=== PATIENT | male | born 1960 | race Caucasian/White ===

== ENCOUNTER 2016-09-07 15:09 | Emergency (ER) | payer MEDICARE, MEDICAID ==
[~2016-09-07] VITALS: Ht 162.6 cm; Wt 71.0 kg
[~2016-09-07 15:09] MED LIST: DIVA500T69 PO; DSS100 PO; GLIP10 PO; LISI-662 PO; METF500T4 PO; NIFE60 PO; SIMV10 PO; TIMO.25OS OU
[2016-09-07 17:59] LABS: BASOPHILS % (AUTO) 0.1 % (0.0-2.0); EOSINOPHILS % (AUTO) 1.7 % (1.0-6.0); HEMATOCRIT 43.1 % (41-53); HEMOGLOBIN 14.2 g/dL (13.5-17.5); LYMPHOCYTES # (AUTO) 1.5 K/uL (1.0-4.8); MEAN CORPUSCULAR HEMOGLOBIN 30.7 pg (26.0-34.0); MEAN CORPUSCULAR HGB CONC 32.9 G/dL (31.0-37.0); MEAN CORPUSCULAR VOLUME 93 fL (80-100); MONOCYTES # (AUTO) 0.5 K/uL (0.1-1.0); MONOCYTES % (AUTO) 6.1 % (2.0-9.0); NEUTROPHILS # (AUTO) 5.3 K/uL (1.8-7.7); NEUTROPHILS % (AUTO) 72.1 % (40.0-70.0); PLATELET COUNT (AUTO) 232 K/uL (150-450); RED BLOOD CELL COUNT(AUTO) 4.63 MIL/uL (4.50-5.90); RED CELL DISTRIBUTION WIDTH 15.7 % (11.5-14.5); WHITE BLOOD COUNT (AUTO) 7.4 K/uL (4.5-11.0)
[2016-09-07 18:15] LABS: ANION GAP 9 mmol/L (8-16); CALCIUM, TOTAL 9.2 mg/dL (8.8-10.5); CARBON DIOXIDE 30 mmol/L (22-29); CHLORIDE 106 mmol/L (98-107); CREATININE 1.19 mg/dL (0.60-1.30); GLOMERULAR FILTR. RATE CALC > 60 mL/min (>60); POTASSIUM 3.2 mmol/L (3.5-5.1); SODIUM SERUM 145 mmol/L (136-145); UREA NITROGEN, BLOOD 18 mg/dL (7-18)
[2016-09-07 18:20] LABS: ALANINE AMINOTRANSFERASE 16 U/L (12-78); ALBUMIN 3.5 g/dL (3.4-5.0); ASPARTATE AMINOTRANSFERASE 13 U/L (15-37); BILIRUBIN,TOTAL 0.4 mg/dL (0.1-1.0); TOTAL PROTEIN, SERUM 7.5 g/dL (6.4-8.2)
[2016-09-07] MEDS ORDERED: LORazepam 2 MG TABLET PO ONE (19:45)
[2016-09-07] MEDS ORDERED: PERMETHRIN 5% 60 GM CREAM TP ONE (19:45)
[2016-09-07 20:12] VITALS: BP 144/86
== END 2016-09-07 20:20 | disposition home or self-care (01) ==
LOC: EMS 15:11
DX: F41.9 Anxiety disorder, unspecified (principal); B86 Scabies; E11.9 Type 2 diabetes mellitus without complications; I10 Essential (primary) hypertension; F20.9 Schizophrenia, unspecified; F31.9 Bipolar disorder, unspecified
CPT/HCPCS: 36415; 80053; 80307; 85025; 99284; G0480

== ENCOUNTER 2016-09-09 15:00 | Inpatient (IN) | payer OTHER, MEDICAID ==
[~2016-09-09] VITALS: Ht 162.6 cm; Wt 80.9 kg
[2016-09-09] MEDS ORDERED: ZOLPIDEM TARTRATE 10 MG TABLET PO PRN (17:00)
[2016-09-09] MEDS ORDERED: HALOPERIDOL 5 MG TABLET PO PRN (17:00)
[2016-09-09 17:30] VITALS: BP 179/97
[2016-09-09] MEDS ORDERED: DEXTROSE 50%-WATER 25 GM/50 ML SYRINGE IVP PRN (18:30)
[2016-09-09] MEDS: NIFEdipine 60 MG ER TABLET PO SCH (19:19)
[2016-09-09] MEDS: LISINOPRIL 20 MG TABLET PO SCH (19:21)
[2016-09-09] MEDS: QUEtiapine FUMARATE 200 MG TABLET PO SCH (21:07)
[2016-09-09] MEDS: SIMVASTATIN 10 MG TABLET PO SCH (21:07)
[2016-09-09 21:37] LABS: GLUCOSE COMMENT 1 Received Meds; GLUCOSE,POINT OF CARE 150 MG/DL (70-110)
[2016-09-09] MEDS: INSULIN ASPART 100 UNITS/ML SQ PRN (21:39)
[2016-09-10 05:22] LABS: GLUCOSE,POINT OF CARE 157 MG/DL (70-110)
[2016-09-10 06:12] LABS: BASOPHILS % (AUTO) 0.4 % (0.0-2.0); HEMOGLOBIN 12.6 g/dL (13.5-17.5); LYMPHOCYTES # (AUTO) 1.9 K/uL (1.0-4.8); LYMPHOCYTES % (AUTO) 41.3 % (22.0-44.0); MEAN CORPUSCULAR HEMOGLOBIN 30.5 pg (26.0-34.0); MEAN CORPUSCULAR HGB CONC 32.4 G/dL (31.0-37.0); MEAN CORPUSCULAR VOLUME 94 fL (80-100); MONOCYTES # (AUTO) 0.4 K/uL (0.1-1.0); MONOCYTES % (AUTO) 9.3 % (2.0-9.0); PLATELET COUNT (AUTO) 167 K/uL (150-450); RED BLOOD CELL COUNT(AUTO) 4.15 MIL/uL (4.50-5.90); RED CELL DISTRIBUTION WIDTH 15.4 % (11.5-14.5); WHITE BLOOD COUNT (AUTO) 4.6 K/uL (4.5-11.0)
[2016-09-10 06:25] LABS: ALANINE AMINOTRANSFERASE 16 U/L (12-78); ANION GAP 6 mmol/L (8-16); ASPARTATE AMINOTRANSFERASE 11 U/L (15-37); BILIRUBIN,TOTAL 0.6 mg/dL (0.1-1.0); CALCIUM, TOTAL 8.7 mg/dL (8.8-10.5); CARBON DIOXIDE 31 mmol/L (22-29); CHLORIDE 111 mmol/L (98-107); CHOL/HDL RATIO 3.9 (4.2-7.3); CREATININE 1.15 mg/dL (0.60-1.30); GLOMERULAR FILTR. RATE CALC > 60 mL/min (>60); POTASSIUM 3.1 mmol/L (3.5-5.1); SODIUM SERUM 148 mmol/L (136-145); TOTAL PROTEIN, SERUM 6.4 g/dL (6.4-8.2); UREA NITROGEN, BLOOD 19 mg/dL (7-18)
[2016-09-10] MEDS: GlipiZIDE 10 MG TABLET PO SCH ×2 (06:56→16:32)
[2016-09-10] MEDS: INSULIN ASPART 100 UNITS/ML SQ PRN ×4 (06:56→21:01)
[2016-09-10] MEDS: MetFORMIN HCL 500 MG TABLET PO SCH ×2 (06:57→16:32)
[2016-09-10 08:17] VITALS: BP 110/69
[2016-09-10] MEDS: LISINOPRIL 20 MG TABLET PO SCH (09:00)
[2016-09-10] MEDS: TIMOLOL MALEATE 0.25% 5 ML OPHTHALMIC SOLUTION OU SCH (09:05)
[2016-09-10] MEDS: DIVALPROEX SODIUM 500 MG DR TABLET PO SCH ×2 (09:05→16:31)
[2016-09-10] MEDS: DOCUSATE SODIUM 100 MG CAPSULE PO SCH ×2 (09:05→16:32)
[2016-09-10] MEDS: NIFEdipine 60 MG ER TABLET PO SCH (09:06)
[2016-09-10] MEDS: HYDROCORTISONE 0.5% 30 GM CREAM TP PRN ×2 (09:33→16:30)
[2016-09-10] MEDS ORDERED: PERMETHRIN 5% 60 GM CREAM TP ONE (10:00)
[2016-09-10 11:42] LABS: GLUCOSE,POINT OF CARE 145 MG/DL (70-110)
[2016-09-10 16:57] LABS: GLUCOSE,POINT OF CARE 183 MG/DL (70-110)
[2016-09-10] MEDS: DiphenhydrAMINE HCL 25 MG CAPSULE PO PRN (17:15)
[2016-09-10 19:46] LABS: GLUCOSE COMMENT 1 Received Meds; GLUCOSE,POINT OF CARE 214 MG/DL (70-110)
[2016-09-10] MEDS: SIMVASTATIN 10 MG TABLET PO SCH (19:58)
[2016-09-10] MEDS: LORazepam 2 MG TABLET PO PRN (20:00)
[2016-09-10] MEDS: QUEtiapine FUMARATE 200 MG TABLET PO SCH (21:00)
[2016-09-10 21:18] VITALS: BP 128/82
[2016-09-10] MEDS ORDERED: POTASSIUM CHLORIDE 20 MEQ ER TABLET PO ONE (21:45)
[2016-09-10 22:54] LABS: APPEARANCE,URINE CLEAR (CLEAR); GLUCOSE, URINE (UA) 250 mg/dL (NEGATIVE); KETONES,URINE NEGATIVE (NEGATIVE); LEUKOCYTE ESTERASE ,URINE NEGATIVE (NEGATIVE); OCCULT BLOOD,URINE NEGATIVE (NEGATIVE); PH,URINE 6.5 (5.0-8.0); PROTEIN,URINE NEGATIVE (NEGATIVE)
[2016-09-10 22:57] LABS: ADD UA MICROSCOPIC YES
[2016-09-10 23:13] LABS: SQUAMOUS EPITHELIAL CELL,UR Few /LPF (None Seen)
[2016-09-10 23:15] LABS: RBC,URINE None Seen /HPF (0-2); WBC,URINE 0-2 /HPF (0-5)
[2016-09-11 05:22] LABS: GLUCOSE,POINT OF CARE 160 MG/DL (70-110)
[2016-09-11 06:42] LABS: POTASSIUM 4.1 mmol/L (3.5-5.1)
[2016-09-11] MEDS: GlipiZIDE 10 MG TABLET PO SCH ×2 (06:50→16:50)
[2016-09-11] MEDS: MetFORMIN HCL 500 MG TABLET PO SCH ×2 (06:50→16:50)
[2016-09-11] MEDS: INSULIN ASPART 100 UNITS/ML SQ PRN ×4 (06:56→21:13)
[2016-09-11 08:00] VITALS: BP 125/80
[2016-09-11] MEDS: DOCUSATE SODIUM 100 MG CAPSULE PO SCH ×2 (08:56→16:49)
[2016-09-11] MEDS: DIVALPROEX SODIUM 500 MG DR TABLET PO SCH ×2 (08:56→16:50)
[2016-09-11] MEDS: CHOLECALCIFEROL (VIT D3) 1,000 UNITS TABLET PO SCH (08:56)
[2016-09-11] MEDS: LISINOPRIL 20 MG TABLET PO SCH (08:56)
[2016-09-11] MEDS: NIFEdipine 60 MG ER TABLET PO SCH (08:56)
[2016-09-11] MEDS: TIMOLOL MALEATE 0.25% 5 ML OPHTHALMIC SOLUTION OU SCH (08:57)
[2016-09-11 11:22] LABS: GLUCOSE,POINT OF CARE 190 MG/DL (70-110)
[2016-09-11 17:00] VITALS: BP 115/80
[2016-09-11] MEDS: SIMVASTATIN 10 MG TABLET PO SCH (20:55)
[2016-09-11] MEDS: QUEtiapine FUMARATE 200 MG TABLET PO SCH (20:55)
[2016-09-11] MEDS: DiphenhydrAMINE HCL 25 MG CAPSULE PO PRN (20:57)
[2016-09-12 05:33] LABS: GLUCOSE,POINT OF CARE 159 MG/DL (70-110)
[2016-09-12] MEDS: GlipiZIDE 10 MG TABLET PO SCH ×2 (06:44→16:55)
[2016-09-12] MEDS: MetFORMIN HCL 500 MG TABLET PO SCH ×2 (06:44→16:55)
[2016-09-12] MEDS: INSULIN ASPART 100 UNITS/ML SQ PRN ×3 (06:50→17:16)
[2016-09-12] MEDS: CHOLECALCIFEROL (VIT D3) 1,000 UNITS TABLET PO SCH (08:14)
[2016-09-12] MEDS: LISINOPRIL 20 MG TABLET PO SCH (08:14)
[2016-09-12] MEDS: DIVALPROEX SODIUM 500 MG DR TABLET PO SCH ×2 (08:14→16:55)
[2016-09-12] MEDS: NIFEdipine 60 MG ER TABLET PO SCH (08:15)
[2016-09-12] MEDS: TIMOLOL MALEATE 0.25% 5 ML OPHTHALMIC SOLUTION OU SCH (08:15)
[2016-09-12 08:16] VITALS: BP 134/87
[2016-09-12] MEDS: DOCUSATE SODIUM 100 MG CAPSULE PO SCH ×2 (08:24→16:54)
[2016-09-12] MEDS: HYDROCORTISONE 0.5% 30 GM CREAM TP PRN (09:55)
[2016-09-12 11:27] LABS: GLUCOSE,POINT OF CARE 221 MG/DL (70-110)
[2016-09-12] MEDS ORDERED: ACETAMINOPHEN 325 MG TABLET PO PRN (13:15)
[2016-09-12] MEDS ORDERED: IBUPROFEN 400 MG TABLET PO PRN (13:15)
[2016-09-12] MEDS: LORazepam 2 MG TABLET PO PRN (13:45)
[2016-09-12 13:50] VITALS: BP 124/87
[2016-09-12 14:50] VITALS: BP 150/99
[2016-09-12 16:57] VITALS: BP 135/90
[2016-09-12] MEDS: DiphenhydrAMINE HCL 25 MG CAPSULE PO PRN (20:15)
[2016-09-12] MEDS: SIMVASTATIN 10 MG TABLET PO SCH (20:15)
[2016-09-12] MEDS: QUEtiapine FUMARATE 200 MG TABLET PO SCH (20:15)
[2016-09-13 05:22] LABS: GLUCOSE,POINT OF CARE 152 MG/DL (70-110)
[2016-09-13] MEDS: MetFORMIN HCL 500 MG TABLET PO SCH ×2 (06:58→16:24)
[2016-09-13] MEDS: GlipiZIDE 10 MG TABLET PO SCH ×2 (06:58→16:24)
[2016-09-13] MEDS: INSULIN ASPART 100 UNITS/ML SQ PRN ×5 (06:59→21:21)
[2016-09-13 08:15] VITALS: BP 144/99
[2016-09-13] MEDS: LISINOPRIL 20 MG TABLET PO SCH (08:56)
[2016-09-13] MEDS: DIVALPROEX SODIUM 500 MG DR TABLET PO SCH ×2 (08:56→16:24)
[2016-09-13] MEDS: CHOLECALCIFEROL (VIT D3) 1,000 UNITS TABLET PO SCH (08:56)
[2016-09-13] MEDS: TIMOLOL MALEATE 0.25% 5 ML OPHTHALMIC SOLUTION OU SCH (08:57)
[2016-09-13] MEDS: NIFEdipine 60 MG ER TABLET PO SCH (08:57)
[2016-09-13] MEDS: DOCUSATE SODIUM 100 MG CAPSULE PO SCH ×2 (09:00→17:00)
[2016-09-13 12:36] LABS: GLUCOSE,POINT OF CARE 209 MG/DL (70-110)
[2016-09-13] MEDS: DiphenhydrAMINE HCL 25 MG CAPSULE PO PRN (16:24)
[2016-09-13 16:41] LABS: GLUCOSE,POINT OF CARE 195 MG/DL (70-110)
[2016-09-13 18:17] VITALS: BP 121/84
[2016-09-13] MEDS: HYDROCORTISONE 0.5% 30 GM CREAM TP PRN (20:14)
[2016-09-13] MEDS: SIMVASTATIN 10 MG TABLET PO SCH (20:14)
[2016-09-13] MEDS: QUEtiapine FUMARATE 200 MG TABLET PO SCH (20:14)
[2016-09-13 20:21] LABS: GLUCOSE,POINT OF CARE 202 MG/DL (70-110)
[2016-09-14 05:22] LABS: GLUCOSE,POINT OF CARE 144 MG/DL (70-110)
[2016-09-14] MEDS: MetFORMIN HCL 500 MG TABLET PO SCH ×2 (06:34→16:54)
[2016-09-14] MEDS: GlipiZIDE 10 MG TABLET PO SCH ×2 (06:34→16:54)
[2016-09-14] MEDS: INSULIN ASPART 100 UNITS/ML SQ PRN ×4 (06:47→20:21)
[2016-09-14 08:16] VITALS: BP 144/82
[2016-09-14] MEDS: DOCUSATE SODIUM 100 MG CAPSULE PO SCH ×2 (09:00→17:00)
[2016-09-14] MEDS: TIMOLOL MALEATE 0.25% 5 ML OPHTHALMIC SOLUTION OU SCH (09:09)
[2016-09-14] MEDS: DIVALPROEX SODIUM 500 MG DR TABLET PO SCH ×2 (09:10→16:54)
[2016-09-14] MEDS: CHOLECALCIFEROL (VIT D3) 1,000 UNITS TABLET PO SCH (09:10)
[2016-09-14] MEDS: LISINOPRIL 20 MG TABLET PO SCH (09:10)
[2016-09-14] MEDS: NIFEdipine 60 MG ER TABLET PO SCH (09:10)
[2016-09-14 11:33] LABS: GLUCOSE,POINT OF CARE 225 MG/DL (70-110)
[2016-09-14 16:48] VITALS: BP 140/95
[2016-09-14 17:07] LABS: GLUCOSE COMMENT 1 Received Meds; GLUCOSE,POINT OF CARE 168 MG/DL (70-110)
[2016-09-14] MEDS: QUEtiapine FUMARATE 200 MG TABLET PO SCH (20:11)
[2016-09-14] MEDS: SIMVASTATIN 10 MG TABLET PO SCH (20:11)
[2016-09-14 20:33] LABS: GLUCOSE,POINT OF CARE 189 MG/DL (70-110)
[2016-09-15 05:37] LABS: GLUCOSE,POINT OF CARE 126 MG/DL (70-110)
[2016-09-15] MEDS: MetFORMIN HCL 500 MG TABLET PO SCH ×2 (06:41→16:58)
[2016-09-15] MEDS: GlipiZIDE 10 MG TABLET PO SCH ×2 (06:41→16:57)
[2016-09-15 06:44] VITALS: BP 136/86
[2016-09-15 08:02] VITALS: BP 122/78
[2016-09-15] MEDS: TIMOLOL MALEATE 0.25% 5 ML OPHTHALMIC SOLUTION OU SCH (08:35)
[2016-09-15] MEDS: DIVALPROEX SODIUM 500 MG DR TABLET PO SCH ×2 (08:36→16:57)
[2016-09-15] MEDS: LISINOPRIL 20 MG TABLET PO SCH (08:36)
[2016-09-15] MEDS: CHOLECALCIFEROL (VIT D3) 1,000 UNITS TABLET PO SCH (08:36)
[2016-09-15] MEDS: NIFEdipine 60 MG ER TABLET PO SCH (08:36)
[2016-09-15] MEDS: DOCUSATE SODIUM 100 MG CAPSULE PO SCH ×2 (08:42→17:00)
[2016-09-15] MEDS: INSULIN ASPART 100 UNITS/ML SQ PRN ×3 (11:20→21:27)
[2016-09-15 11:27] LABS: GLUCOSE,POINT OF CARE 177 MG/DL (70-110)
[2016-09-15 16:05] VITALS: BP 131/90
[2016-09-15 17:12] LABS: GLUCOSE COMMENT 1 Received Meds; GLUCOSE,POINT OF CARE 242 MG/DL (70-110)
[2016-09-15] MEDS: SIMVASTATIN 10 MG TABLET PO SCH (20:59)
[2016-09-15] MEDS: QUEtiapine FUMARATE 200 MG TABLET PO SCH (21:00)
[2016-09-15 21:12] LABS: GLUCOSE COMMENT 1 Received Meds; GLUCOSE,POINT OF CARE 156 MG/DL (70-110)
[2016-09-16] MEDS: GlipiZIDE 10 MG TABLET PO SCH (06:51)
[2016-09-16] MEDS: MetFORMIN HCL 500 MG TABLET PO SCH (06:52)
[2016-09-16] MEDS: INSULIN ASPART 100 UNITS/ML SQ PRN (07:47)
[2016-09-16 07:48] LABS: GLUCOSE,POINT OF CARE 144 MG/DL (70-110)
[2016-09-16] MEDS: LISINOPRIL 20 MG TABLET PO SCH (08:20)
[2016-09-16] MEDS: CHOLECALCIFEROL (VIT D3) 1,000 UNITS TABLET PO SCH (08:20)
[2016-09-16] MEDS: TIMOLOL MALEATE 0.25% 5 ML OPHTHALMIC SOLUTION OU SCH (08:20)
[2016-09-16] MEDS: DIVALPROEX SODIUM 500 MG DR TABLET PO SCH (08:20)
[2016-09-16] MEDS: NIFEdipine 60 MG ER TABLET PO SCH (08:21)
[2016-09-16] MEDS: DOCUSATE SODIUM 100 MG CAPSULE PO SCH (08:24)
[2016-09-16 08:30] VITALS: BP 105/75
[2016-09-16] MEDS ORDERED: QUET200T PO (11:25)
[2016-09-16] MEDS ORDERED: VITAD1000 PO (11:27)
[2016-09-16 11:37] LABS: GLUCOSE,POINT OF CARE 122 MG/DL (70-110)
== END 2016-09-16 16:00 | disposition home or self-care (01) | DRG 885 ==
LOC: 3EX 15:00
PROVIDERS: ADMIT Psychiatry & Neurology Psychiatry; ATTEND Psychiatry & Neurology Psychiatry
DX: F25.9 Schizoaffective disorder, unspecified (principal); E87.0 Hyperosmolality and hypernatremia; F32.9 Major depressive disorder, single episode, unspecified; F41.9 Anxiety disorder, unspecified; E78.5 Hyperlipidemia, unspecified; K21.9 Gastro-esophageal reflux disease without esophagitis; E55.9 Vitamin D deficiency, unspecified; B86 Scabies; E87.6 Hypokalemia; E11.65 Type 2 diabetes mellitus with hyperglycemia; K59.00 Constipation, unspecified; G47.00 Insomnia, unspecified; F29 Unspecified psychosis not due to a substance or known physiological condition; R21 Rash and other nonspecific skin eruption
CPT/HCPCS: 80307; 82962; 84132; 84295

== ENCOUNTER 2016-09-25 16:09 | Inpatient (IN) | payer OTHER, MEDICAID ==
[~2016-09-25] VITALS: Ht 162.6 cm; Wt 78.6 kg
[~2016-09-25 16:09] MED LIST changes: -NIFE60 PO; +NIFE60TA71 PO; +QUET200T PO; +SIMV-259 PO; -SIMV10 PO; +VITAD1000 PO
[2016-09-25 16:32] LABS: GLUCOSE COMMENT 1 Repeated; GLUCOSE,POINT OF CARE 259 MG/DL (70-110)
[2016-09-25] MEDS ORDERED: INSU100I15 SQ (16:51)
[2016-09-25] MEDS ORDERED: METO-323 PO (16:51)
[2016-09-25] MEDS ORDERED: INSLAN SQ (16:51)
[2016-09-25] MEDS ORDERED: METR1KIT TP (16:51)
[2016-09-25] MEDS ORDERED: FOLI1 PO (16:51)
[2016-09-25] MEDS ORDERED: SIMV-259 PO (16:51)
[2016-09-25 17:24] LABS: BASOPHILS % (AUTO) 0.4 % (0.0-2.0); HEMATOCRIT 47.3 % (41-53); HEMOGLOBIN 15.3 g/dL (13.5-17.5); LYMPHOCYTES # (AUTO) 2.8 K/uL (1.0-4.8); LYMPHOCYTES % (AUTO) 30.8 % (22.0-44.0); MEAN CORPUSCULAR HEMOGLOBIN 30.7 pg (26.0-34.0); MEAN CORPUSCULAR HGB CONC 32.4 G/dL (31.0-37.0); MEAN CORPUSCULAR VOLUME 95 fL (80-100); MONOCYTES # (AUTO) 0.6 K/uL (0.1-1.0); MONOCYTES % (AUTO) 6.4 % (2.0-9.0); NEUTROPHILS # (AUTO) 5.7 K/uL (1.8-7.7); NEUTROPHILS % (AUTO) 61.4 % (40.0-70.0); PLATELET COUNT (AUTO) 243 K/uL (150-450); RED CELL DISTRIBUTION WIDTH 14.7 % (11.5-14.5); WHITE BLOOD COUNT (AUTO) 9.3 K/uL (4.5-11.0)
[2016-09-25 17:39] LABS: ANION GAP 13 mmol/L (8-16); CALCIUM, TOTAL 9.4 mg/dL (8.8-10.5); CARBON DIOXIDE 25 mmol/L (22-29); CHLORIDE 101 mmol/L (98-107); CREATININE 1.26 mg/dL (0.60-1.30); GLOMERULAR FILTR. RATE CALC 59 mL/min (>60); POTASSIUM 3.5 mmol/L (3.5-5.1); SODIUM SERUM 139 mmol/L (136-145); UREA NITROGEN, BLOOD 15 mg/dL (7-18)
[2016-09-25 17:42] LABS: APPEARANCE,URINE CLEAR (CLEAR); GLUCOSE, URINE (UA) >=1000 mg/dL (NEGATIVE); KETONES,URINE NEGATIVE (NEGATIVE); LEUKOCYTE ESTERASE ,URINE NEGATIVE (NEGATIVE); OCCULT BLOOD,URINE NEGATIVE (NEGATIVE); PROTEIN,URINE POS 1+ (NEGATIVE)
[2016-09-25 17:44] LABS: ADD UA MICROSCOPIC YES
[2016-09-25 17:45] LABS: ALBUMIN 3.9 g/dL (3.4-5.0); ASPARTATE AMINOTRANSFERASE 20 U/L (15-37)
[2016-09-25 17:56] LABS: RBC,URINE None Seen /HPF (0-2); WBC,URINE None Seen /HPF (0-5)
[2016-09-25] MEDS ORDERED: LORazepam 2 MG TABLET PO ONE (18:15)
[2016-09-25] MEDS ORDERED: QUEtiapine FUMARATE 100 MG TABLET PO ONE (18:15)
[2016-09-25 18:20] LABS: ALANINE AMINOTRANSFERASE 36 U/L (12-78); BILIRUBIN,TOTAL 0.6 mg/dL (0.1-1.0); TOTAL PROTEIN, SERUM 8.3 g/dL (6.4-8.2); VALPROIC ACID 70 mcg/mL (50-100)
[2016-09-25] MEDS ORDERED: PERMETHRIN 5% 60 GM CREAM TP ONE (18:30)
[2016-09-25] MEDS ORDERED: ZOLPIDEM TARTRATE 10 MG TABLET PO PRN (18:45)
[2016-09-25] MEDS ORDERED: LORazepam 2 MG TABLET PO PRN (18:45)
[2016-09-25] MEDS ORDERED: HALOPERIDOL 5 MG TABLET PO PRN (18:45)
[2016-09-25] MEDS: DIVALPROEX SODIUM 500 MG DR TABLET PO SCH (19:43)
[2016-09-25] MEDS: QUEtiapine FUMARATE 200 MG TABLET PO SCH (20:40)
[2016-09-25 20:47] LABS: GLUCOSE,POINT OF CARE 248 MG/DL (70-110)
[2016-09-25 21:01] VITALS: BP 119/97
[2016-09-25] MEDS ORDERED: -PHARMACY VACCINE NOTE- MISC ONE ×2 (21:45)
[2016-09-25] MEDS ORDERED: GLUCAGON,HUMAN RECOMBINANT 1 MG VIAL IM PRN (21:45)
[2016-09-25] MEDS: INSULIN ASPART 100 UNITS/ML SQ PRN (21:56)
[2016-09-26 02:44] VITALS: BP 123/91
[2016-09-26 06:07] LABS: GLUCOSE,POINT OF CARE 148 MG/DL (70-110)
[2016-09-26] MEDS: INSULIN ASPART 100 UNITS/ML SQ PRN ×4 (06:37→20:34)
[2016-09-26] MEDS ORDERED: BENZOCAINE/MENTHOL LOZENGE MM PRN (07:45)
[2016-09-26] MEDS ORDERED: ONDANSETRON HCL 4 MG TABLET PO PRN (07:45)
[2016-09-26] MEDS ORDERED: ALBUTEROL SULFATE HFA 90 MCG/PUFF 8 GM INHALER IH PRN (07:45)
[2016-09-26] MEDS ORDERED: CloNIDine HCL 0.1 MG TABLET PO PRN (07:45)
[2016-09-26] MEDS ORDERED: ACETAMINOPHEN 325 MG TABLET PO PRN (07:45)
[2016-09-26] MEDS ORDERED: BACITRACIN 28.4 GM OINTMENT TP PRN (07:45)
[2016-09-26] MEDS ORDERED: PETROLATUM,WHITE 71 GM JELLY TP PRN (07:45)
[2016-09-26] MEDS ORDERED: MAG HYDROX/AL HYDROX/SIMETH ES 30 ML SUSPENSION UDCUP PO PRN (07:45)
[2016-09-26] MEDS ORDERED: LOPERAMIDE HCL 2 MG CAPSULE PO PRN (07:45)
[2016-09-26] MEDS ORDERED: MAGNESIUM HYDROXIDE SUSPENSION 30 ML UDCUP PO PRN (07:45)
[2016-09-26] MEDS ORDERED: IBUPROFEN 600 MG TABLET PO PRN (07:45)
[2016-09-26 08:19] VITALS: BP 126/60
[2016-09-26] MEDS: DIVALPROEX SODIUM 500 MG DR TABLET PO SCH ×2 (09:46→16:10)
[2016-09-26] MEDS: CHOLECALCIFEROL (VIT D3) 1,000 UNITS TABLET PO SCH (09:46)
[2016-09-26 12:02] LABS: GLUCOSE,POINT OF CARE 337 MG/DL (70-110)
[2016-09-26] MEDS: TIMOLOL MALEATE 0.25% 5 ML OPHTHALMIC SOLUTION OU SCH (16:10)
[2016-09-26] MEDS: NIFEdipine 60 MG ER TABLET PO SCH (16:10)
[2016-09-26 16:12] LABS: GLUCOSE COMMENT 1 Received Meds; GLUCOSE,POINT OF CARE 174 MG/DL (70-110)
[2016-09-26 16:40] VITALS: BP 125/95
[2016-09-26] MEDS: QUEtiapine FUMARATE 200 MG TABLET PO SCH (20:30)
[2016-09-26] MEDS: SIMVASTATIN 10 MG TABLET PO SCH (20:30)
[2016-09-26] MEDS: INSULIN DETEMIR 100 UNITS/ML SQ SCH (20:34)
[2016-09-26 20:43] LABS: GLUCOSE COMMENT 1 Received Meds; GLUCOSE,POINT OF CARE 261 MG/DL (70-110)
[2016-09-27 01:07] VITALS: BP 123/93
[2016-09-27] MEDS: INSULIN ASPART 100 UNITS/ML SQ PRN ×4 (06:24→20:14)
[2016-09-27 06:35] LABS: GLUCOSE,POINT OF CARE 206 MG/DL (70-110)
[2016-09-27 08:26] VITALS: BP 118/80
[2016-09-27] MEDS: FISH OIL/OMEGA-3 FATTY ACIDS 500 MG CAPSULE PO SCH (09:40)
[2016-09-27] MEDS: DIVALPROEX SODIUM 500 MG DR TABLET PO SCH ×2 (09:41→16:58)
[2016-09-27] MEDS: TIMOLOL MALEATE 0.25% 5 ML OPHTHALMIC SOLUTION OU SCH (09:41)
[2016-09-27] MEDS: CHOLECALCIFEROL (VIT D3) 1,000 UNITS TABLET PO SCH (09:41)
[2016-09-27] MEDS: NIFEdipine 60 MG ER TABLET PO SCH (09:41)
[2016-09-27 11:17] LABS: GLUCOSE,POINT OF CARE 212 MG/DL (70-110)
[2016-09-27 16:09] VITALS: BP 124/89
[2016-09-27 16:57] LABS: GLUCOSE,POINT OF CARE 212 MG/DL (70-110)
[2016-09-27] MEDS: PROPRANOLOL HCL 10 MG TABLET PO SCH (16:58)
[2016-09-27] MEDS: SIMVASTATIN 10 MG TABLET PO SCH (20:08)
[2016-09-27] MEDS: QUEtiapine FUMARATE 200 MG TABLET PO SCH (20:08)
[2016-09-27] MEDS: INSULIN DETEMIR 100 UNITS/ML SQ SCH (20:14)
[2016-09-27 20:22] LABS: GLUCOSE,POINT OF CARE 278 MG/DL (70-110)
[2016-09-28] VITALS: BP 122/88
[2016-09-28 06:22] LABS: GLUCOSE,POINT OF CARE 154 MG/DL (70-110)
[2016-09-28] MEDS: INSULIN ASPART 100 UNITS/ML SQ PRN ×4 (06:33→20:42)
[2016-09-28 08:12] VITALS: BP 125/83
[2016-09-28] MEDS: FISH OIL/OMEGA-3 FATTY ACIDS 500 MG CAPSULE PO SCH (08:22)
[2016-09-28] MEDS: CHOLECALCIFEROL (VIT D3) 1,000 UNITS TABLET PO SCH (08:22)
[2016-09-28] MEDS: DIVALPROEX SODIUM 500 MG DR TABLET PO SCH ×2 (08:22→16:13)
[2016-09-28] MEDS: TIMOLOL MALEATE 0.25% 5 ML OPHTHALMIC SOLUTION OU SCH (08:22)
[2016-09-28] MEDS: NIFEdipine 60 MG ER TABLET PO SCH (08:22)
[2016-09-28] MEDS: PROPRANOLOL HCL 10 MG TABLET PO SCH ×2 (08:22→16:12)
[2016-09-28 10:57] LABS: GLUCOSE,POINT OF CARE 216 MG/DL (70-110)
[2016-09-28 16:00] VITALS: BP 134/80
[2016-09-28 16:27] LABS: GLUCOSE COMMENT 1 Received Meds; GLUCOSE,POINT OF CARE 209 MG/DL (70-110)
[2016-09-28] MEDS: QUEtiapine FUMARATE 200 MG TABLET PO SCH (20:31)
[2016-09-28] MEDS: SIMVASTATIN 10 MG TABLET PO SCH (20:31)
[2016-09-28] MEDS: INSULIN DETEMIR 100 UNITS/ML SQ SCH (20:41)
[2016-09-28 20:47] LABS: GLUCOSE COMMENT 1 Received Meds; GLUCOSE,POINT OF CARE 315 MG/DL (70-110)
[2016-09-29 01:17] VITALS: BP 101/70
[2016-09-29 06:27] LABS: GLUCOSE,POINT OF CARE 176 MG/DL (70-110)
[2016-09-29] MEDS: INSULIN ASPART 100 UNITS/ML SQ PRN ×4 (06:44→20:43)
[2016-09-29 08:23] VITALS: BP 123/85
[2016-09-29] MEDS: PROPRANOLOL HCL 10 MG TABLET PO SCH ×2 (09:01→16:39)
[2016-09-29] MEDS: FISH OIL/OMEGA-3 FATTY ACIDS 500 MG CAPSULE PO SCH (09:01)
[2016-09-29] MEDS: CHOLECALCIFEROL (VIT D3) 1,000 UNITS TABLET PO SCH (09:01)
[2016-09-29] MEDS: DIVALPROEX SODIUM 500 MG DR TABLET PO SCH ×2 (09:01→16:38)
[2016-09-29] MEDS: NIFEdipine 60 MG ER TABLET PO SCH (09:01)
[2016-09-29] MEDS: TIMOLOL MALEATE 0.25% 5 ML OPHTHALMIC SOLUTION OU SCH (09:02)
[2016-09-29 11:43] LABS: GLUCOSE COMMENT 1 Received Meds; GLUCOSE,POINT OF CARE 303 MG/DL (70-110)
[2016-09-29 16:28] VITALS: BP 145/95
[2016-09-29 16:42] LABS: GLUCOSE COMMENT 1 Received Meds; GLUCOSE,POINT OF CARE 212 MG/DL (70-110)
[2016-09-29 19:00] VITALS: BP 131/79
[2016-09-29 20:16] LABS: GLUCOSE COMMENT 1 Received Meds; GLUCOSE,POINT OF CARE 241 MG/DL (70-110)
[2016-09-29] MEDS: QUEtiapine FUMARATE 200 MG TABLET PO SCH (20:40)
[2016-09-29] MEDS: SIMVASTATIN 10 MG TABLET PO SCH (20:40)
[2016-09-29] MEDS: INSULIN DETEMIR 100 UNITS/ML SQ SCH (20:43)
[2016-09-30 00:50] VITALS: BP 111/80
[2016-09-30 06:07] LABS: GLUCOSE,POINT OF CARE 152 MG/DL (70-110)
[2016-09-30] MEDS: INSULIN ASPART 100 UNITS/ML SQ PRN ×4 (06:41→20:58)
[2016-09-30 08:07] VITALS: BP 122/81
[2016-09-30] MEDS: PROPRANOLOL HCL 10 MG TABLET PO SCH ×2 (08:58→16:32)
[2016-09-30] MEDS: NIFEdipine 60 MG ER TABLET PO SCH (08:58)
[2016-09-30] MEDS: DIVALPROEX SODIUM 500 MG DR TABLET PO SCH ×2 (08:58→16:32)
[2016-09-30] MEDS: FISH OIL/OMEGA-3 FATTY ACIDS 500 MG CAPSULE PO SCH (08:58)
[2016-09-30] MEDS: CHOLECALCIFEROL (VIT D3) 1,000 UNITS TABLET PO SCH (08:58)
[2016-09-30] MEDS: TIMOLOL MALEATE 0.25% 5 ML OPHTHALMIC SOLUTION OU SCH (08:59)
[2016-09-30 11:27] LABS: GLUCOSE,POINT OF CARE 275 MG/DL (70-110)
[2016-09-30 16:08] VITALS: BP 143/94
[2016-09-30 16:27] LABS: GLUCOSE COMMENT 1 Received Meds; GLUCOSE,POINT OF CARE 247 MG/DL (70-110)
[2016-09-30 18:05] VITALS: BP 128/89
[2016-09-30 20:12] LABS: GLUCOSE COMMENT 1 Received Meds; GLUCOSE,POINT OF CARE 337 MG/DL (70-110)
[2016-09-30] MEDS: QUEtiapine FUMARATE 200 MG TABLET PO SCH (20:56)
[2016-09-30] MEDS: SIMVASTATIN 10 MG TABLET PO SCH (20:56)
[2016-09-30] MEDS: INSULIN DETEMIR 100 UNITS/ML SQ SCH (20:57)
[2016-10-01 01:35] VITALS: BP 113/63
[2016-10-01 06:12] LABS: GLUCOSE,POINT OF CARE 159 MG/DL (70-110)
[2016-10-01] MEDS: INSULIN ASPART 100 UNITS/ML SQ PRN ×4 (06:55→20:40)
[2016-10-01 08:33] VITALS: BP 130/80
[2016-10-01] MEDS: FISH OIL/OMEGA-3 FATTY ACIDS 500 MG CAPSULE PO SCH (08:48)
[2016-10-01] MEDS: CHOLECALCIFEROL (VIT D3) 1,000 UNITS TABLET PO SCH (08:48)
[2016-10-01] MEDS: PROPRANOLOL HCL 10 MG TABLET PO SCH ×2 (08:48→16:32)
[2016-10-01] MEDS: TIMOLOL MALEATE 0.25% 5 ML OPHTHALMIC SOLUTION OU SCH (08:48)
[2016-10-01] MEDS: NIFEdipine 60 MG ER TABLET PO SCH (08:48)
[2016-10-01] MEDS: DIVALPROEX SODIUM 500 MG DR TABLET PO SCH ×2 (08:48→16:32)
[2016-10-01 11:12] LABS: GLUCOSE,POINT OF CARE 326 MG/DL (70-110)
[2016-10-01 16:03] VITALS: BP 144/94
[2016-10-01 16:22] LABS: GLUCOSE COMMENT 1 Received Meds; GLUCOSE,POINT OF CARE 209 MG/DL (70-110)
[2016-10-01 20:32] LABS: GLUCOSE COMMENT 1 Received Meds; GLUCOSE,POINT OF CARE 357 MG/DL (70-110)
[2016-10-01] MEDS: SIMVASTATIN 10 MG TABLET PO SCH (20:39)
[2016-10-01] MEDS: QUEtiapine FUMARATE 200 MG TABLET PO SCH (20:39)
[2016-10-01] MEDS: INSULIN DETEMIR 100 UNITS/ML SQ SCH (20:40)
[2016-10-02 05:09] VITALS: BP_SYST 142; BP_SYST 143; BP_DIAS 86; BP_DIAS 91
[2016-10-02 06:37] LABS: GLUCOSE,POINT OF CARE 157 MG/DL (70-110)
[2016-10-02] MEDS: INSULIN ASPART 100 UNITS/ML SQ PRN ×4 (06:39→20:16)
[2016-10-02 08:22] VITALS: BP 112/73
[2016-10-02] MEDS: CHOLECALCIFEROL (VIT D3) 1,000 UNITS TABLET PO SCH (08:34)
[2016-10-02] MEDS: NIFEdipine 60 MG ER TABLET PO SCH (08:34)
[2016-10-02] MEDS: FISH OIL/OMEGA-3 FATTY ACIDS 500 MG CAPSULE PO SCH (08:34)
[2016-10-02] MEDS: DIVALPROEX SODIUM 500 MG DR TABLET PO SCH ×3 (08:34→16:57)
[2016-10-02] MEDS: PROPRANOLOL HCL 10 MG TABLET PO SCH ×2 (08:34→16:57)
[2016-10-02] MEDS: TIMOLOL MALEATE 0.25% 5 ML OPHTHALMIC SOLUTION OU SCH (08:36)
[2016-10-02 11:17] LABS: GLUCOSE,POINT OF CARE 360 MG/DL (70-110)
[2016-10-02 16:05] VITALS: BP 134/86
[2016-10-02 16:48] LABS: GLUCOSE,POINT OF CARE 253 MG/DL (70-110)
[2016-10-02] MEDS: QUEtiapine FUMARATE 200 MG TABLET PO SCH (20:08)
[2016-10-02] MEDS: SIMVASTATIN 10 MG TABLET PO SCH (20:08)
[2016-10-02] MEDS: INSULIN DETEMIR 100 UNITS/ML SQ SCH (20:16)
[2016-10-02 20:32] LABS: GLUCOSE,POINT OF CARE 336 MG/DL (70-110)
[2016-10-03 06:25] VITALS: BP 119/75
[2016-10-03 06:27] LABS: GLUCOSE,POINT OF CARE 164 MG/DL (70-110)
[2016-10-03] MEDS: INSULIN ASPART 100 UNITS/ML SQ PRN ×4 (06:31→20:49)
[2016-10-03 08:07] VITALS: BP 103/60
[2016-10-03] MEDS: FISH OIL/OMEGA-3 FATTY ACIDS 500 MG CAPSULE PO SCH (08:41)
[2016-10-03] MEDS: QUEtiapine FUMARATE 200 MG TABLET PO SCH ×2 (08:41→20:47)
[2016-10-03] MEDS: CHOLECALCIFEROL (VIT D3) 1,000 UNITS TABLET PO SCH (08:41)
[2016-10-03] MEDS: DIVALPROEX SODIUM 500 MG DR TABLET PO SCH ×3 (08:41→16:40)
[2016-10-03] MEDS: TIMOLOL MALEATE 0.25% 5 ML OPHTHALMIC SOLUTION OU SCH (08:42)
[2016-10-03 08:45] VITALS: BP 136/93
[2016-10-03] MEDS: NIFEdipine 60 MG ER TABLET PO SCH (08:49)
[2016-10-03] MEDS: PROPRANOLOL HCL 10 MG TABLET PO SCH ×2 (08:49→16:40)
[2016-10-03 11:11] LABS: GLUCOSE,POINT OF CARE 377 MG/DL (70-110)
[2016-10-03 16:00] VITALS: BP 135/91
[2016-10-03] MEDS: SIMVASTATIN 10 MG TABLET PO SCH (20:47)
[2016-10-03] MEDS: INSULIN DETEMIR 100 UNITS/ML SQ SCH (20:49)
[2016-10-03 20:53] LABS: GLUCOSE COMMENT 1 Received Meds; GLUCOSE,POINT OF CARE 247 MG/DL (70-110)
[2016-10-03 21:42] LABS: GLUCOSE COMMENT 1 Received Meds; GLUCOSE,POINT OF CARE 338 MG/DL (70-110)
[2016-10-04 00:06] VITALS: BP 113/74
[2016-10-04] MEDS: INSULIN ASPART 100 UNITS/ML SQ PRN ×4 (06:41→20:57)
[2016-10-04 06:47] LABS: GLUCOSE,POINT OF CARE 174 MG/DL (70-110)
[2016-10-04 08:28] VITALS: BP 127/80
[2016-10-04] MEDS: DIVALPROEX SODIUM 500 MG DR TABLET PO SCH ×3 (09:28→16:34)
[2016-10-04] MEDS: NIFEdipine 60 MG ER TABLET PO SCH (09:28)
[2016-10-04] MEDS: PROPRANOLOL HCL 10 MG TABLET PO SCH ×2 (09:28→16:34)
[2016-10-04] MEDS: CHOLECALCIFEROL (VIT D3) 1,000 UNITS TABLET PO SCH (09:28)
[2016-10-04] MEDS: FISH OIL/OMEGA-3 FATTY ACIDS 500 MG CAPSULE PO SCH (09:28)
[2016-10-04] MEDS: TIMOLOL MALEATE 0.25% 5 ML OPHTHALMIC SOLUTION OU SCH (09:28)
[2016-10-04] MEDS: QUEtiapine FUMARATE 200 MG TABLET PO SCH ×2 (09:28→20:21)
[2016-10-04 11:42] LABS: GLUCOSE COMMENT 1 Received Meds; GLUCOSE,POINT OF CARE 242 MG/DL (70-110)
[2016-10-04 16:18] VITALS: BP 131/92
[2016-10-04 16:22] LABS: GLUCOSE,POINT OF CARE 328 MG/DL (70-110)
[2016-10-04 20:08] LABS: GLUCOSE,POINT OF CARE 336 MG/DL (70-110)
[2016-10-04] MEDS: SIMVASTATIN 10 MG TABLET PO SCH (20:20)
[2016-10-04] MEDS: INSULIN DETEMIR 100 UNITS/ML SQ SCH (20:57)
[2016-10-05 06:37] VITALS: BP 127/70
[2016-10-05] MEDS: INSULIN ASPART 100 UNITS/ML SQ PRN ×4 (06:40→20:38)
[2016-10-05 06:43] LABS: GLUCOSE,POINT OF CARE 181 MG/DL (70-110)
[2016-10-05 08:30] VITALS: BP 129/86
[2016-10-05] MEDS: CHOLECALCIFEROL (VIT D3) 1,000 UNITS TABLET PO SCH (09:17)
[2016-10-05] MEDS: FISH OIL/OMEGA-3 FATTY ACIDS 500 MG CAPSULE PO SCH (09:17)
[2016-10-05] MEDS: PROPRANOLOL HCL 10 MG TABLET PO SCH ×2 (09:17→16:46)
[2016-10-05] MEDS: DIVALPROEX SODIUM 500 MG DR TABLET PO SCH ×3 (09:17→16:46)
[2016-10-05] MEDS: QUEtiapine FUMARATE 200 MG TABLET PO SCH ×2 (09:17→20:35)
[2016-10-05] MEDS: NIFEdipine 60 MG ER TABLET PO SCH (09:17)
[2016-10-05] MEDS: TIMOLOL MALEATE 0.25% 5 ML OPHTHALMIC SOLUTION OU SCH (09:18)
[2016-10-05 11:37] LABS: GLUCOSE,POINT OF CARE 357 MG/DL (70-110)
[2016-10-05 16:07] VITALS: BP 121/84
[2016-10-05 16:52] LABS: GLUCOSE COMMENT 1 Received Meds; GLUCOSE,POINT OF CARE 231 MG/DL (70-110)
[2016-10-05] MEDS: SIMVASTATIN 10 MG TABLET PO SCH (20:35)
[2016-10-05] MEDS: INSULIN DETEMIR 100 UNITS/ML SQ SCH (20:37)
[2016-10-05 22:32] LABS: GLUCOSE COMMENT 1 Received Meds; GLUCOSE,POINT OF CARE 380 MG/DL (70-110)
[2016-10-06 00:59] VITALS: BP 118/81
[2016-10-06] MEDS: INSULIN ASPART 100 UNITS/ML SQ PRN ×4 (07:24→21:00)
[2016-10-06 07:27] LABS: GLUCOSE,POINT OF CARE 197 MG/DL (70-110)
[2016-10-06 08:24] VITALS: BP 120/74
[2016-10-06] MEDS: CHOLECALCIFEROL (VIT D3) 1,000 UNITS TABLET PO SCH (09:07)
[2016-10-06] MEDS: PROPRANOLOL HCL 10 MG TABLET PO SCH ×2 (09:07→16:43)
[2016-10-06] MEDS: DIVALPROEX SODIUM 500 MG DR TABLET PO SCH ×3 (09:07→16:43)
[2016-10-06] MEDS: NIFEdipine 60 MG ER TABLET PO SCH (09:07)
[2016-10-06] MEDS: QUEtiapine FUMARATE 200 MG TABLET PO SCH ×2 (09:08→20:58)
[2016-10-06] MEDS: TIMOLOL MALEATE 0.25% 5 ML OPHTHALMIC SOLUTION OU SCH (09:08)
[2016-10-06] MEDS: FISH OIL/OMEGA-3 FATTY ACIDS 500 MG CAPSULE PO SCH (09:08)
[2016-10-06 11:41] LABS: GLUCOSE,POINT OF CARE 366 MG/DL (70-110)
[2016-10-06 16:08] VITALS: BP 125/86
[2016-10-06 16:37] LABS: GLUCOSE COMMENT 1 Received Meds; GLUCOSE,POINT OF CARE 232 MG/DL (70-110)
[2016-10-06 20:16] LABS: GLUCOSE COMMENT 1 Received Meds; GLUCOSE,POINT OF CARE 298 MG/DL (70-110)
[2016-10-06] MEDS: SIMVASTATIN 10 MG TABLET PO SCH (20:57)
[2016-10-06] MEDS: INSULIN DETEMIR 100 UNITS/ML SQ SCH (21:00)
[2016-10-07 00:15] VITALS: BP 110/73
[2016-10-07] MEDS: INSULIN ASPART 100 UNITS/ML SQ PRN ×4 (06:27→20:55)
[2016-10-07 06:31] LABS: GLUCOSE,POINT OF CARE 181 MG/DL (70-110)
[2016-10-07 08:11] VITALS: BP 116/72
[2016-10-07] MEDS: DIVALPROEX SODIUM 500 MG DR TABLET PO SCH ×3 (09:03→16:48)
[2016-10-07] MEDS: CHOLECALCIFEROL (VIT D3) 1,000 UNITS TABLET PO SCH (09:03)
[2016-10-07] MEDS: QUEtiapine FUMARATE 200 MG TABLET PO SCH ×2 (09:03→20:53)
[2016-10-07] MEDS: PROPRANOLOL HCL 10 MG TABLET PO SCH ×2 (09:03→16:48)
[2016-10-07] MEDS: FISH OIL/OMEGA-3 FATTY ACIDS 500 MG CAPSULE PO SCH (09:03)
[2016-10-07] MEDS: NIFEdipine 60 MG ER TABLET PO SCH (09:04)
[2016-10-07] MEDS: TIMOLOL MALEATE 0.25% 5 ML OPHTHALMIC SOLUTION OU SCH (09:05)
[2016-10-07 11:11] LABS: GLUCOSE,POINT OF CARE 302 MG/DL (70-110)
[2016-10-07 16:14] VITALS: BP 145/90
[2016-10-07 16:47] LABS: GLUCOSE COMMENT 1 Received Meds; GLUCOSE,POINT OF CARE 333 MG/DL (70-110)
[2016-10-07 20:07] LABS: GLUCOSE COMMENT 1 Received Meds; GLUCOSE,POINT OF CARE 418 MG/DL (70-110)
[2016-10-07] MEDS: SIMVASTATIN 10 MG TABLET PO SCH (20:53)
[2016-10-07] MEDS: INSULIN DETEMIR 100 UNITS/ML SQ SCH (20:55)
[2016-10-08 05:03] VITALS: BP 115/73
[2016-10-08] MEDS: INSULIN ASPART 100 UNITS/ML SQ PRN ×4 (06:08→20:39)
[2016-10-08 06:21] LABS: GLUCOSE,POINT OF CARE 241 MG/DL (70-110)
[2016-10-08 08:25] VITALS: BP 102/66
[2016-10-08] MEDS: QUEtiapine FUMARATE 200 MG TABLET PO SCH ×2 (09:23→20:38)
[2016-10-08] MEDS: PROPRANOLOL HCL 10 MG TABLET PO SCH ×2 (09:23→16:46)
[2016-10-08] MEDS: CHOLECALCIFEROL (VIT D3) 1,000 UNITS TABLET PO SCH (09:23)
[2016-10-08] MEDS: DIVALPROEX SODIUM 500 MG DR TABLET PO SCH ×3 (09:23→16:46)
[2016-10-08] MEDS: FISH OIL/OMEGA-3 FATTY ACIDS 500 MG CAPSULE PO SCH (09:23)
[2016-10-08] MEDS: TIMOLOL MALEATE 0.25% 5 ML OPHTHALMIC SOLUTION OU SCH (09:24)
[2016-10-08] MEDS: NIFEdipine 60 MG ER TABLET PO SCH (09:24)
[2016-10-08 11:37] LABS: GLUCOSE COMMENT 1 Received Meds; GLUCOSE,POINT OF CARE 381 MG/DL (70-110)
[2016-10-08 16:00] VITALS: BP 120/84
[2016-10-08 16:57] LABS: GLUCOSE COMMENT 1 Received Meds; GLUCOSE,POINT OF CARE 311 MG/DL (70-110)
[2016-10-08] MEDS: SIMVASTATIN 10 MG TABLET PO SCH (20:37)
[2016-10-08] MEDS: INSULIN DETEMIR 100 UNITS/ML SQ SCH (20:38)
[2016-10-08 20:42] LABS: GLUCOSE COMMENT 1 Received Meds; GLUCOSE,POINT OF CARE 374 MG/DL (70-110)
[2016-10-09 06:03] VITALS: BP 124/84
[2016-10-09] MEDS: INSULIN ASPART 100 UNITS/ML SQ PRN ×3 (06:31→17:18)
[2016-10-09 06:32] LABS: GLUCOSE,POINT OF CARE 221 MG/DL (70-110)
[2016-10-09 08:17] VITALS: BP 108/68
[2016-10-09] MEDS: CHOLECALCIFEROL (VIT D3) 1,000 UNITS TABLET PO SCH (08:50)
[2016-10-09] MEDS: FISH OIL/OMEGA-3 FATTY ACIDS 500 MG CAPSULE PO SCH (08:50)
[2016-10-09] MEDS: DIVALPROEX SODIUM 500 MG DR TABLET PO SCH ×3 (08:51→16:37)
[2016-10-09] MEDS: QUEtiapine FUMARATE 200 MG TABLET PO SCH (08:51)
[2016-10-09] MEDS: TIMOLOL MALEATE 0.25% 5 ML OPHTHALMIC SOLUTION OU SCH (08:52)
[2016-10-09 09:00] VITALS: BP 123/90
[2016-10-09] MEDS: PROPRANOLOL HCL 10 MG TABLET PO SCH ×2 (09:03→16:37)
[2016-10-09] MEDS: NIFEdipine 60 MG ER TABLET PO SCH (09:03)
[2016-10-09 11:52] LABS: GLUCOSE,POINT OF CARE 349 MG/DL (70-110)
[2016-10-09 16:07] VITALS: BP 112/81
[2016-10-09 16:31] LABS: GLUCOSE COMMENT 1 Received Meds; GLUCOSE,POINT OF CARE 401 MG/DL (70-110)
[2016-10-09] MEDS ORDERED: INSU100V12 SQ (19:15)
[2016-10-09] MEDS ORDERED: QUET200T PO ×2 (19:15)
[2016-10-09] MEDS ORDERED: DIVA500T35 PO (19:15)
[2016-10-09] MEDS ORDERED: OMEG100033 PO (19:19)
[2016-10-09] MEDS ORDERED: NIFE60TA5 PO (19:19)
[2016-10-09] MEDS ORDERED: PROP10 PO (19:19)
[2016-10-09] MEDS ORDERED: QUEtiapine FUMARATE 200 MG TABLET PO SCH (21:00)
[2016-10-09] MEDS ORDERED: SIMVASTATIN 10 MG TABLET PO SCH (21:00)
[2016-10-10] MEDS ORDERED: TIMOLOL MALEATE 0.25% 5 ML OPHTHALMIC SOLUTION OU SCH (07:00)
[2016-10-10] MEDS ORDERED: NIFEdipine 60 MG ER TABLET PO SCH (09:00)
[2016-10-10] MEDS ORDERED: DIVALPROEX SODIUM 500 MG DR TABLET PO SCH (09:00)
[2016-10-10] MEDS ORDERED: INSULIN DETEMIR 100 UNITS/ML SQ SCH (09:00)
[2016-10-10] MEDS ORDERED: QUEtiapine FUMARATE 200 MG TABLET PO SCH (09:00)
[2016-10-10] MEDS ORDERED: FISH OIL/OMEGA-3 FATTY ACIDS 500 MG CAPSULE PO SCH (09:00)
[2016-10-10] MEDS ORDERED: PROPRANOLOL HCL 10 MG TABLET PO SCH (09:00)
== END 2016-10-09 18:00 | disposition home or self-care (01) | DRG 885 ==
LOC: EMS 16:12 → B2X 19:00
PROVIDERS: ADMIT Psychiatry & Neurology Psychiatry; ATTEND Psychiatry & Neurology Psychiatry
DX: F25.9 Schizoaffective disorder, unspecified (principal); R45.851 Suicidal ideations; B86 Scabies; E11.65 Type 2 diabetes mellitus with hyperglycemia; E55.9 Vitamin D deficiency, unspecified; F31.9 Bipolar disorder, unspecified; E78.1 Pure hyperglyceridemia; E78.5 Hyperlipidemia, unspecified; F41.9 Anxiety disorder, unspecified; G47.00 Insomnia, unspecified; I10 Essential (primary) hypertension; K21.9 Gastro-esophageal reflux disease without esophagitis; K59.00 Constipation, unspecified; Z79.4 Long term (current) use of insulin; Z79.899 Other long term (current) drug therapy
CPT/HCPCS: 82962; 87081; 99285; G0480

== ENCOUNTER 2016-11-12 16:15 | Inpatient (IN) | payer OTHER, MEDICAID ==
[~2016-11-12] VITALS: Ht 162.6 cm; Wt 76.7 kg
[~2016-11-12 16:15] MED LIST changes: +DIVA500T35 PO; -DIVA500T69 PO; -DSS100 PO; -GLIP10 PO; +INSU100V12 SQ; -LISI-662 PO; -METF500T4 PO; +NIFE60TA5 PO; -NIFE60TA71 PO; +OMEG100033 PO; +PROP10 PO; -VITAD1000 PO
[2016-11-12 16:37] LABS: GLUCOSE,POINT OF CARE 308 MG/DL (70-110)
[2016-11-12 16:51] LABS: BASOPHILS % (AUTO) 0.3 % (0.0-2.0); HEMATOCRIT 44.4 % (41-53); HEMOGLOBIN 14.9 g/dL (13.5-17.5); LYMPHOCYTES # (AUTO) 2.1 K/uL (1.0-4.8); LYMPHOCYTES % (AUTO) 33.5 % (22.0-44.0); MEAN CORPUSCULAR HEMOGLOBIN 31.2 pg (26.0-34.0); MEAN CORPUSCULAR HGB CONC 33.6 G/dL (31.0-37.0); MEAN CORPUSCULAR VOLUME 93 fL (80-100); MONOCYTES # (AUTO) 0.4 K/uL (0.1-1.0); NEUTROPHILS # (AUTO) 3.6 K/uL (1.8-7.7); NEUTROPHILS % (AUTO) 58.2 % (40.0-70.0); PLATELET COUNT (AUTO) 198 K/uL (150-450); RED BLOOD CELL COUNT(AUTO) 4.79 MIL/uL (4.50-5.90); RED CELL DISTRIBUTION WIDTH 13.7 % (11.5-14.5); WHITE BLOOD COUNT (AUTO) 6.2 K/uL (4.5-11.0)
[2016-11-12 17:23] LABS: ALANINE AMINOTRANSFERASE 51 U/L (12-78); ALBUMIN 3.6 g/dL (3.4-5.0); ASPARTATE AMINOTRANSFERASE 41 U/L (15-37); BILIRUBIN,TOTAL 0.5 mg/dL (0.1-1.0); CALCIUM, TOTAL 9.3 mg/dL (8.8-10.5); CHLORIDE 104 mmol/L (98-107); CREATININE 1.55 mg/dL (0.60-1.30); GLOMERULAR FILTR. RATE CALC 47 mL/min (>60); POTASSIUM 3.5 mmol/L (3.5-5.1); SODIUM SERUM 139 mmol/L (136-145); TOTAL PROTEIN, SERUM 7.5 g/dL (6.4-8.2); UREA NITROGEN, BLOOD 17 mg/dL (7-18)
[2016-11-12 17:27] LABS: ANION GAP 9 mmol/L (8-16); CARBON DIOXIDE 26 mmol/L (22-29)
[2016-11-12] MEDS ORDERED: LORazepam 2 MG/ML VIAL IM ONE (19:15)
[2016-11-12] MEDS ORDERED: DiphenhydrAMINE HCL 50 MG/ML VIAL IM ONE (19:15)
[2016-11-12] MEDS ORDERED: HALOPERIDOL LACTATE 5 MG/ML VIAL IM ONE (19:15)
[2016-11-12] MEDS ORDERED: INSULIN REGULAR, HUMAN 100 UNITS/ML SQ ONE (19:30)
[2016-11-12] MEDS ORDERED: HALOPERIDOL 5 MG TABLET PO PRN (19:45)
[2016-11-12] MEDS ORDERED: ZOLPIDEM TARTRATE 10 MG TABLET PO PRN (19:45)
[2016-11-12 20:52] LABS: GLUCOSE,POINT OF CARE 201 MG/DL (70-110)
[2016-11-12] MEDS: DIVALPROEX SODIUM 500 MG DR TABLET PO SCH (21:54)
[2016-11-12] MEDS: QUEtiapine FUMARATE 200 MG TABLET PO SCH (21:54)
[2016-11-12 21:57] LABS: GLUCOSE,POINT OF CARE 212 MG/DL (70-110)
[2016-11-12] MEDS ORDERED: GLUCAGON,HUMAN RECOMBINANT 1 MG VIAL IM PRN (22:15)
[2016-11-12 22:34] VITALS: BP 111/71
[2016-11-13 00:08] VITALS: BP 107/62
[2016-11-13 06:17] LABS: GLUCOSE,POINT OF CARE 99 MG/DL (70-110)
[2016-11-13 08:09] VITALS: BP 115/84
[2016-11-13] MEDS: DIVALPROEX SODIUM 500 MG DR TABLET PO SCH ×3 (09:27→17:01)
[2016-11-13] MEDS: CHOLECALCIFEROL (VIT D3) 1,000 UNITS TABLET PO SCH (09:27)
[2016-11-13] MEDS: PROPRANOLOL HCL 10 MG TABLET PO SCH ×2 (09:27→17:01)
[2016-11-13] MEDS: QUEtiapine FUMARATE 200 MG TABLET PO SCH ×2 (09:27→20:34)
[2016-11-13] MEDS: NIFEdipine 60 MG ER TABLET PO SCH (09:27)
[2016-11-13] MEDS: FISH OIL/OMEGA-3 FATTY ACIDS 500 MG CAPSULE PO SCH (09:28)
[2016-11-13 11:07] LABS: GLUCOSE,POINT OF CARE 266 MG/DL (70-110)
[2016-11-13] MEDS: INSULIN ASPART 100 UNITS/ML SQ PRN ×3 (11:35→20:48)
[2016-11-13 16:47] LABS: GLUCOSE,POINT OF CARE 186 MG/DL (70-110)
[2016-11-13] MEDS: LORazepam 2 MG TABLET PO PRN (17:01)
[2016-11-13 18:31] VITALS: BP 109/70
[2016-11-13] MEDS: SIMVASTATIN 10 MG TABLET PO SCH (20:34)
[2016-11-13 20:47] LABS: GLUCOSE,POINT OF CARE 225 MG/DL (70-110)
[2016-11-13] MEDS: INSULIN DETEMIR 100 UNITS/ML SQ SCH (20:48)
[2016-11-14 00:17] VITALS: BP 114/76
[2016-11-14 07:02] LABS: GLUCOSE,POINT OF CARE 133 MG/DL (70-110)
[2016-11-14 08:25] LABS: CALCIUM, TOTAL 8.6 mg/dL (8.8-10.5); CREATININE 1.48 mg/dL (0.60-1.30); POTASSIUM 3.6 mmol/L (3.5-5.1)
[2016-11-14 08:49] VITALS: BP 126/94
[2016-11-14] MEDS: PROPRANOLOL HCL 10 MG TABLET PO SCH ×2 (08:58→16:35)
[2016-11-14] MEDS: NIFEdipine 60 MG ER TABLET PO SCH (08:58)
[2016-11-14] MEDS: DIVALPROEX SODIUM 500 MG DR TABLET PO SCH ×3 (08:58→16:35)
[2016-11-14] MEDS: FISH OIL/OMEGA-3 FATTY ACIDS 500 MG CAPSULE PO SCH (08:58)
[2016-11-14] MEDS: QUEtiapine FUMARATE 200 MG TABLET PO SCH ×2 (08:58→20:42)
[2016-11-14] MEDS: CHOLECALCIFEROL (VIT D3) 1,000 UNITS TABLET PO SCH (08:58)
[2016-11-14] MEDS: INSULIN ASPART 100 UNITS/ML SQ PRN ×3 (11:26→20:49)
[2016-11-14 11:27] LABS: GLUCOSE,POINT OF CARE 201 MG/DL (70-110)
[2016-11-14 16:08] VITALS: BP 106/77
[2016-11-14 16:23] VITALS: BP 128/92
[2016-11-14 16:38] LABS: GLUCOSE,POINT OF CARE 150 MG/DL (70-110)
[2016-11-14 20:33] LABS: GLUCOSE,POINT OF CARE 246 MG/DL (70-110)
[2016-11-14] MEDS: SIMVASTATIN 10 MG TABLET PO SCH (20:42)
[2016-11-14] MEDS: INSULIN DETEMIR 100 UNITS/ML SQ SCH (20:49)
[2016-11-15] VITALS: BP 114/75
[2016-11-15 06:28] LABS: GLUCOSE,POINT OF CARE 133 MG/DL (70-110)
[2016-11-15 08:08] VITALS: BP 130/83
[2016-11-15] MEDS: FISH OIL/OMEGA-3 FATTY ACIDS 500 MG CAPSULE PO SCH (09:02)
[2016-11-15] MEDS: DIVALPROEX SODIUM 500 MG DR TABLET PO SCH ×3 (09:02→16:58)
[2016-11-15] MEDS: CHOLECALCIFEROL (VIT D3) 1,000 UNITS TABLET PO SCH (09:02)
[2016-11-15] MEDS: QUEtiapine FUMARATE 200 MG TABLET PO SCH ×2 (09:03→21:08)
[2016-11-15] MEDS: NIFEdipine 60 MG ER TABLET PO SCH (09:03)
[2016-11-15] MEDS: PROPRANOLOL HCL 10 MG TABLET PO SCH ×2 (09:03→16:58)
[2016-11-15] MEDS: INSULIN ASPART 100 UNITS/ML SQ PRN ×3 (11:22→21:29)
[2016-11-15 11:28] LABS: GLUCOSE,POINT OF CARE 206 MG/DL (70-110)
[2016-11-15 16:18] VITALS: BP 111/78
[2016-11-15 19:43] LABS: GLUCOSE,POINT OF CARE 175 MG/DL (70-110)
[2016-11-15] MEDS: SIMVASTATIN 10 MG TABLET PO SCH (21:08)
[2016-11-15 21:22] LABS: GLUCOSE,POINT OF CARE 248 MG/DL (70-110)
[2016-11-15] MEDS: INSULIN DETEMIR 100 UNITS/ML SQ SCH (21:26)
[2016-11-16 00:01] VITALS: BP 110/75
[2016-11-16 06:52] LABS: GLUCOSE,POINT OF CARE 186 MG/DL (70-110)
[2016-11-16] MEDS: INSULIN ASPART 100 UNITS/ML SQ PRN ×4 (06:55→20:56)
[2016-11-16 08:23] VITALS: BP 144/98
[2016-11-16] MEDS: PROPRANOLOL HCL 10 MG TABLET PO SCH ×2 (08:49→16:45)
[2016-11-16] MEDS: NIFEdipine 60 MG ER TABLET PO SCH (08:49)
[2016-11-16] MEDS: QUEtiapine FUMARATE 200 MG TABLET PO SCH ×2 (08:49→20:51)
[2016-11-16] MEDS: DIVALPROEX SODIUM 500 MG DR TABLET PO SCH ×3 (08:49→16:45)
[2016-11-16] MEDS: FISH OIL/OMEGA-3 FATTY ACIDS 500 MG CAPSULE PO SCH (08:49)
[2016-11-16] MEDS: CHOLECALCIFEROL (VIT D3) 1,000 UNITS TABLET PO SCH (08:49)
[2016-11-16 10:00] VITALS: BP 132/86
[2016-11-16 11:22] LABS: GLUCOSE,POINT OF CARE 224 MG/DL (70-110)
[2016-11-16] MEDS: LORazepam 2 MG TABLET PO PRN (12:42)
[2016-11-16 16:14] VITALS: BP 122/73
[2016-11-16 16:36] LABS: GLUCOSE COMMENT 1 Received Meds; GLUCOSE,POINT OF CARE 328 MG/DL (70-110)
[2016-11-16 20:37] LABS: GLUCOSE,POINT OF CARE 190 MG/DL (70-110)
[2016-11-16] MEDS: SIMVASTATIN 10 MG TABLET PO SCH (20:51)
[2016-11-16] MEDS: INSULIN DETEMIR 100 UNITS/ML SQ SCH (20:56)
[2016-11-17 00:08] VITALS: BP 116/86
[2016-11-17 07:02] LABS: GLUCOSE,POINT OF CARE 161 MG/DL (70-110)
[2016-11-17] MEDS: INSULIN ASPART 100 UNITS/ML SQ PRN ×4 (07:13→20:47)
[2016-11-17 08:08] VITALS: BP 114/69
[2016-11-17] MEDS: FISH OIL/OMEGA-3 FATTY ACIDS 500 MG CAPSULE PO SCH (08:17)
[2016-11-17] MEDS: QUEtiapine FUMARATE 200 MG TABLET PO SCH ×2 (08:17→20:35)
[2016-11-17] MEDS: DIVALPROEX SODIUM 500 MG DR TABLET PO SCH ×3 (08:17→16:37)
[2016-11-17] MEDS: NIFEdipine 60 MG ER TABLET PO SCH (08:17)
[2016-11-17] MEDS: PROPRANOLOL HCL 10 MG TABLET PO SCH ×2 (08:17→16:37)
[2016-11-17] MEDS: CHOLECALCIFEROL (VIT D3) 1,000 UNITS TABLET PO SCH (08:17)
[2016-11-17 11:17] LABS: GLUCOSE COMMENT 1 Received Meds; GLUCOSE,POINT OF CARE 227 MG/DL (70-110)
[2016-11-17 16:08] VITALS: BP 125/92
[2016-11-17 16:37] LABS: GLUCOSE,POINT OF CARE 250 MG/DL (70-110)
[2016-11-17 20:22] LABS: GLUCOSE,POINT OF CARE 264 MG/DL (70-110)
[2016-11-17] MEDS: SIMVASTATIN 10 MG TABLET PO SCH (20:35)
[2016-11-17] MEDS: INSULIN DETEMIR 100 UNITS/ML SQ SCH (20:47)
[2016-11-18 00:33] VITALS: BP 129/87
[2016-11-18 07:01] LABS: GLUCOSE,POINT OF CARE 160 MG/DL (70-110)
[2016-11-18] MEDS: INSULIN ASPART 100 UNITS/ML SQ PRN ×4 (07:47→20:34)
[2016-11-18 08:29] VITALS: BP 125/76
[2016-11-18] MEDS: PROPRANOLOL HCL 10 MG TABLET PO SCH ×2 (09:03→16:24)
[2016-11-18] MEDS: CHOLECALCIFEROL (VIT D3) 1,000 UNITS TABLET PO SCH (09:03)
[2016-11-18] MEDS: DIVALPROEX SODIUM 500 MG DR TABLET PO SCH ×3 (09:03→16:24)
[2016-11-18] MEDS: NIFEdipine 60 MG ER TABLET PO SCH (09:03)
[2016-11-18] MEDS: FISH OIL/OMEGA-3 FATTY ACIDS 500 MG CAPSULE PO SCH (09:03)
[2016-11-18] MEDS: QUEtiapine FUMARATE 200 MG TABLET PO SCH ×2 (09:03→20:13)
[2016-11-18 11:23] LABS: GLUCOSE,POINT OF CARE 209 MG/DL (70-110)
[2016-11-18 16:10] VITALS: BP 133/86
[2016-11-18 16:42] LABS: GLUCOSE,POINT OF CARE 161 MG/DL (70-110)
[2016-11-18] MEDS: SIMVASTATIN 10 MG TABLET PO SCH (20:13)
[2016-11-18 20:26] LABS: GLUCOSE,POINT OF CARE 296 MG/DL (70-110)
[2016-11-18] MEDS: INSULIN DETEMIR 100 UNITS/ML SQ SCH (20:34)
[2016-11-19 00:10] VITALS: BP 123/85
[2016-11-19 07:06] LABS: GLUCOSE,POINT OF CARE 177 MG/DL (70-110)
[2016-11-19] MEDS: INSULIN ASPART 100 UNITS/ML SQ PRN ×4 (07:18→20:49)
[2016-11-19 08:13] VITALS: BP 147/97
[2016-11-19] MEDS: QUEtiapine FUMARATE 200 MG TABLET PO SCH ×2 (08:53→20:45)
[2016-11-19] MEDS: NIFEdipine 60 MG ER TABLET PO SCH (08:53)
[2016-11-19] MEDS: DIVALPROEX SODIUM 500 MG DR TABLET PO SCH ×3 (08:53→16:36)
[2016-11-19] MEDS: CHOLECALCIFEROL (VIT D3) 1,000 UNITS TABLET PO SCH (08:53)
[2016-11-19] MEDS: FISH OIL/OMEGA-3 FATTY ACIDS 500 MG CAPSULE PO SCH (08:53)
[2016-11-19] MEDS: PROPRANOLOL HCL 10 MG TABLET PO SCH ×2 (08:53→16:35)
[2016-11-19 09:30] VITALS: BP 124/81
[2016-11-19] MEDS: LORazepam 2 MG TABLET PO PRN (10:28)
[2016-11-19 11:17] LABS: GLUCOSE,POINT OF CARE 271 MG/DL (70-110)
[2016-11-19 16:06] VITALS: BP 117/89
[2016-11-19 16:22] LABS: GLUCOSE COMMENT 1 Received Meds; GLUCOSE,POINT OF CARE 266 MG/DL (70-110)
[2016-11-19 20:37] LABS: GLUCOSE COMMENT 1 Received Meds; GLUCOSE,POINT OF CARE 251 MG/DL (70-110)
[2016-11-19] MEDS: SIMVASTATIN 10 MG TABLET PO SCH (20:45)
[2016-11-19] MEDS: INSULIN DETEMIR 100 UNITS/ML SQ SCH (20:48)
[2016-11-20 00:34] VITALS: BP 129/82
[2016-11-20 07:12] LABS: GLUCOSE,POINT OF CARE 133 MG/DL (70-110)
[2016-11-20 08:12] VITALS: BP 121/80
[2016-11-20] MEDS: FISH OIL/OMEGA-3 FATTY ACIDS 500 MG CAPSULE PO SCH (08:32)
[2016-11-20] MEDS: NIFEdipine 60 MG ER TABLET PO SCH (08:32)
[2016-11-20] MEDS: PROPRANOLOL HCL 10 MG TABLET PO SCH (08:32)
[2016-11-20] MEDS: QUEtiapine FUMARATE 200 MG TABLET PO SCH (08:33)
[2016-11-20] MEDS: CHOLECALCIFEROL (VIT D3) 1,000 UNITS TABLET PO SCH (08:33)
[2016-11-20] MEDS: DIVALPROEX SODIUM 500 MG DR TABLET PO SCH ×2 (08:33→12:55)
[2016-11-20 11:17] LABS: GLUCOSE,POINT OF CARE 356 MG/DL (70-110)
[2016-11-20] MEDS: INSULIN ASPART 100 UNITS/ML SQ PRN (11:22)
[2016-11-20] MEDS ORDERED: VITAD1000 PO (12:45)
== END 2016-11-20 14:35 | disposition home or self-care (01) | DRG 885 ==
LOC: EMS 16:18 → B2X 20:02
PROVIDERS: ADMIT Psychiatry & Neurology Psychiatry; ATTEND Psychiatry & Neurology Psychiatry
DX: F25.9 Schizoaffective disorder, unspecified (principal); R45.851 Suicidal ideations; I10 Essential (primary) hypertension; F31.9 Bipolar disorder, unspecified; K21.9 Gastro-esophageal reflux disease without esophagitis; E78.1 Pure hyperglyceridemia; E78.5 Hyperlipidemia, unspecified; G47.00 Insomnia, unspecified; E11.65 Type 2 diabetes mellitus with hyperglycemia; E55.9 Vitamin D deficiency, unspecified; K59.00 Constipation, unspecified; N19 Unspecified kidney failure; Z79.899 Other long term (current) drug therapy; Z91.14 Patient's other noncompliance with medication regimen
CPT/HCPCS: 82948; 82962; 96372; 99285; G0480; J1200; J1630; J1815; J2060

== ENCOUNTER 2017-02-01 22:00 | Inpatient (IN) | payer MEDICARE, MEDICAID ==
[~2017-02-01] VITALS: Ht 170.2 cm; Wt 67.8 kg
[~2017-02-01 22:00] MED LIST changes: -PROP10 PO; +PROP10TA73 PO; -TIMO.25OS OU; +VITAD1000 PO
[2017-02-01 22:12] LABS: GLUCOSE,POINT OF CARE 71 MG/DL (70-110)
[2017-02-01] MEDS ORDERED: INSNPH SQ (22:15)
[2017-02-01] MEDS ORDERED: INSREG SQ (22:15)
[2017-02-01 22:58] LABS: BASOPHILS % (AUTO) 0.2 % (0.0-2.0); EOSINOPHILS % (AUTO) 0.4 % (1.0-6.0); HEMATOCRIT 36.6 % (41-53); HEMOGLOBIN 12.3 g/dL (13.5-17.5); LYMPHOCYTES # (AUTO) 1.5 K/uL (1.0-4.8); LYMPHOCYTES % (AUTO) 18.8 % (22.0-44.0); MEAN CORPUSCULAR HEMOGLOBIN 30.1 pg (26.0-34.0); MEAN CORPUSCULAR HGB CONC 33.7 G/dL (31.0-37.0); MEAN CORPUSCULAR VOLUME 89 fL (80-100); MONOCYTES # (AUTO) 0.7 K/uL (0.1-1.0); MONOCYTES % (AUTO) 9.7 % (2.0-9.0); NEUTROPHILS # (AUTO) 5.5 K/uL (1.8-7.7); NEUTROPHILS % (AUTO) 70.9 % (40.0-70.0); PLATELET COUNT (AUTO) 283 K/uL (150-450); RED CELL DISTRIBUTION WIDTH 13.9 % (11.5-14.5); WHITE BLOOD COUNT (AUTO) 7.7 K/uL (4.5-11.0)
[2017-02-01 23:12] LABS: CALCIUM, TOTAL 9.3 mg/dL (8.8-10.5); CREATININE 1.53 mg/dL (0.60-1.30); POTASSIUM 3.9 mmol/L (3.5-5.1)
[2017-02-01 23:19] LABS: ALBUMIN 2.3 g/dL (3.4-5.0); BILIRUBIN,TOTAL 0.7 mg/dL (0.1-1.0)
[2017-02-01 23:52] LABS: GLUCOSE,POINT OF CARE 74 MG/DL (70-110)
[2017-02-02] MEDS ORDERED: DEXTROSE 50%-WATER 25 GM/50 ML SYRINGE IVP ONE
[2017-02-02 00:06] LABS: ADD UA MICROSCOPIC YES; APPEARANCE,URINE CLOUDY (CLEAR); GLUCOSE, URINE (UA) NEGATIVE (NEGATIVE); KETONES,URINE NEGATIVE (NEGATIVE); LEUKOCYTE ESTERASE ,URINE SMALL (NEGATIVE); OCCULT BLOOD,URINE TRACE (NEGATIVE); PH,URINE 5.5 (5.0-8.0); PROTEIN,URINE POS 1+ (NEGATIVE)
[2017-02-02 00:27] LABS: SQUAMOUS EPITHELIAL CELL,UR Few /LPF (None Seen)
[2017-02-02 01:23] LABS: GLUCOSE,POINT OF CARE 291 MG/DL (70-110)
[2017-02-02 02:37] LABS: GLUCOSE,POINT OF CARE 171 MG/DL (70-110)
[2017-02-02] MEDS ORDERED: ONDANSETRON HCL 4 MG/2 ML VIAL IVP PRN (02:45)
[2017-02-02] MEDS ORDERED: ACETAMINOPHEN 325 MG TABLET PO PRN (02:45)
[2017-02-02] MEDS ORDERED: 0.9% SODIUM CHLORIDE 10 ML SYRINGE IVP PRN (02:45)
[2017-02-02] MEDS ORDERED: METOPROLOL TARTRATE 5 MG/5 ML VIAL IVP ONE (03:00)
[2017-02-02 03:29] VITALS: BP 157/109
[2017-02-02] MEDS ORDERED: -PHARMACY VACCINE NOTE- MISC ONE ×2 (04:45)
[2017-02-02 06:57] VITALS: BP 143/99
[2017-02-02] MEDS ORDERED: DEXTROSE 50%-WATER 25 GM/50 ML SYRINGE IVP PRN (08:00)
[2017-02-02] MEDS ORDERED: SODIUM CHLORIDE 0.9% 1,000 ML IV ONE (08:00)
[2017-02-02] MEDS ORDERED: MAGNESIUM HYDROXIDE SUSPENSION 30 ML UDCUP PO PRN (08:00)
[2017-02-02] MEDS ORDERED: BISACODYL 10 MG RECTAL RECTAL SUPPOSITORY PR PRN (08:00)
[2017-02-02 08:27] LABS: GLUCOSE,POINT OF CARE 86 MG/DL (70-110)
[2017-02-02 08:27] LABS: GLUCOSE,POINT OF CARE 64 MG/DL (70-110)
[2017-02-02] MEDS ORDERED: ENOXAPARIN SODIUM 40 MG/0.4 ML PF SYRINGE SQ SCH (09:00)
[2017-02-02] MEDS: PANTOPRAZOLE SODIUM 40 MG DR TABLET PO SCH (09:47)
[2017-02-02] MEDS: DOCUSATE SODIUM 100 MG CAPSULE PO SCH ×2 (09:47→21:06)
[2017-02-02] MEDS: HEPARIN SODIUM,PORCINE 5,000 UNITS/ML VIAL SQ SCH ×2 (09:48→21:06)
[2017-02-02 10:45] LABS: HEMOGLOBIN A1C 12.9 % (4.5-6.2)
[2017-02-02 11:00] VITALS: BP 141/98
[2017-02-02 11:13] LABS: VALPROIC ACID < 3 mcg/mL (50-100)
[2017-02-02] MEDS: INSULIN ASPART 100 UNITS/ML SQ PRN ×2 (11:46→18:00)
[2017-02-02] MEDS: CefTRIAXone 1 GM/DEXTROSE 50 ML IV SCH (13:25)
[2017-02-02 15:31] VITALS: BP 149/104
[2017-02-02] MEDS: LOSARTAN POTASSIUM 25 MG TABLET PO SCH ×2 (16:45→21:07)
[2017-02-02 17:08] LABS: GLUCOSE COMMENT 1 Received Meds; GLUCOSE,POINT OF CARE 193 MG/DL (70-110)
[2017-02-02] MEDS: GlipiZIDE 5 MG TABLET PO SCH (17:55)
[2017-02-02 19:36] VITALS: BP 137/90
[2017-02-02] MEDS: PROPRANOLOL HCL 10 MG TABLET PO SCH (21:07)
[2017-02-02] MEDS: QUEtiapine FUMARATE 200 MG TABLET PO SCH (21:07)
[2017-02-02] MEDS: ACETAMINOPHEN 325 MG TABLET PO PRN (23:48)
[2017-02-03 00:06] VITALS: BP 105/66
[2017-02-03 04:42] LABS: GLUCOSE,POINT OF CARE 136 MG/DL (70-110)
[2017-02-03 04:42] LABS: GLUCOSE COMMENT 1 Received Meds; GLUCOSE,POINT OF CARE 206 MG/DL (70-110)
[2017-02-03 04:56] VITALS: BP 104/42
[2017-02-03 06:16] LABS: BASOPHILS % (AUTO) 0.1 % (0.0-2.0); EOSINOPHILS % (AUTO) 0 % (1.0-6.0); HEMOGLOBIN 11.5 g/dL (13.5-17.5); LYMPHOCYTES # (AUTO) 1.5 K/uL (1.0-4.8); LYMPHOCYTES % (AUTO) 16.9 % (22.0-44.0); MEAN CORPUSCULAR HEMOGLOBIN 30.5 pg (26.0-34.0); MEAN CORPUSCULAR HGB CONC 33.9 G/dL (31.0-37.0); MEAN CORPUSCULAR VOLUME 90 fL (80-100); MONOCYTES # (AUTO) 0.8 K/uL (0.1-1.0); MONOCYTES % (AUTO) 8.5 % (2.0-9.0); NEUTROPHILS # (AUTO) 6.6 K/uL (1.8-7.7); NEUTROPHILS % (AUTO) 74.5 % (40.0-70.0); PLATELET COUNT (AUTO) 253 K/uL (150-450); RED BLOOD CELL COUNT(AUTO) 3.78 MIL/uL (4.50-5.90); RED CELL DISTRIBUTION WIDTH 13.9 % (11.5-14.5); WHITE BLOOD COUNT (AUTO) 8.9 K/uL (4.5-11.0)
[2017-02-03 06:38] LABS: ALBUMIN 1.9 g/dL (3.4-5.0); BILIRUBIN,TOTAL 0.7 mg/dL (0.1-1.0); CALCIUM, TOTAL 8.7 mg/dL (8.8-10.5); CREATININE 1.93 mg/dL (0.60-1.30); POTASSIUM 3.9 mmol/L (3.5-5.1); TOTAL PROTEIN, SERUM 6.2 g/dL (6.4-8.2)
[2017-02-03] MEDS: GlipiZIDE 5 MG TABLET PO SCH ×2 (06:49→17:44)
[2017-02-03] MEDS: INSULIN ASPART 100 UNITS/ML SQ PRN ×4 (06:51→20:28)
[2017-02-03 07:17] LABS: GLUCOSE COMMENT 1 Received Meds; GLUCOSE,POINT OF CARE 203 MG/DL (70-110)
[2017-02-03] MEDS: PANTOPRAZOLE SODIUM 40 MG DR TABLET PO SCH (08:13)
[2017-02-03] MEDS: DOCUSATE SODIUM 100 MG CAPSULE PO SCH ×2 (08:14→20:23)
[2017-02-03] MEDS: HEPARIN SODIUM,PORCINE 5,000 UNITS/ML VIAL SQ SCH ×2 (08:14→20:23)
[2017-02-03] MEDS: LOSARTAN POTASSIUM 25 MG TABLET PO SCH (08:14)
[2017-02-03] MEDS: PROPRANOLOL HCL 10 MG TABLET PO SCH (08:14)
[2017-02-03] MEDS: CefTRIAXone 1 GM/DEXTROSE 50 ML IV SCH (08:19)
[2017-02-03 10:40] VITALS: BP 82/52
[2017-02-03] MEDS: SODIUM CHLORIDE 0.9% 1,000 ML IV SCH (12:11)
[2017-02-03 15:16] VITALS: BP 80/47
[2017-02-03 15:37] LABS: GLUCOSE COMMENT 1 Received Meds; GLUCOSE,POINT OF CARE 175 MG/DL (70-110)
[2017-02-03 19:39] VITALS: BP 103/68
[2017-02-03] MEDS: QUEtiapine FUMARATE 200 MG TABLET PO SCH (20:23)
[2017-02-03 23:33] VITALS: BP 90/47
[2017-02-04] MEDS: SODIUM CHLORIDE 0.9% 1,000 ML IV SCH ×3 (01:11→22:19)
[2017-02-04 04:16] VITALS: BP 89/54
[2017-02-04 06:13] LABS: BASOPHILS # (AUTO) 0.02 K/uL (0.00-0.20); BASOPHILS % (AUTO) 0.4 % (0.0-2.0); EOSINOPHILS # (AUTO) 0.04 K/uL (0.00-0.70); EOSINOPHILS % (AUTO) 0.66 % (1.0-6.0); HEMATOCRIT 26.9 % (41-53); HEMOGLOBIN 9.3 g/dL (13.5-17.5); LYMPHOCYTES # (AUTO) 1.3 K/uL (1.0-4.8); LYMPHOCYTES % (AUTO) 24.5 % (22.0-44.0); MEAN CORPUSCULAR HEMOGLOBIN 30.9 pg (26.0-34.0); MEAN CORPUSCULAR HGB CONC 34.7 G/dL (31.0-37.0); MEAN CORPUSCULAR VOLUME 89 fL (80-100); MONOCYTES # (AUTO) 0.5 K/uL (0.1-1.0); MONOCYTES % (AUTO) 8.3 % (2.0-9.0); NEUTROPHILS # (AUTO) 3.6 K/uL (1.8-7.7); NEUTROPHILS % (AUTO) 66.2 % (40.0-70.0); PLATELET COUNT (AUTO) 200 K/uL (150-450); RED BLOOD CELL COUNT(AUTO) 3.01 MIL/uL (4.50-5.90); RED CELL DISTRIBUTION WIDTH 14.1 % (11.5-14.5); WHITE BLOOD COUNT (AUTO) 5.4 K/uL (4.5-11.0)
[2017-02-04] MEDS: GlipiZIDE 5 MG TABLET PO SCH ×2 (06:23→17:41)
[2017-02-04] MEDS: INSULIN ASPART 100 UNITS/ML SQ PRN ×3 (06:26→17:42)
[2017-02-04 06:29] LABS: CALCIUM, TOTAL 8.3 mg/dL (8.8-10.5); CREATININE 1.68 mg/dL (0.60-1.30); POTASSIUM 3.4 mmol/L (3.5-5.1)
[2017-02-04 07:15] VITALS: BP 112/77
[2017-02-04] MEDS: CefTRIAXone 1 GM/DEXTROSE 50 ML IV SCH (07:49)
[2017-02-04] MEDS: PANTOPRAZOLE SODIUM 40 MG DR TABLET PO SCH (08:26)
[2017-02-04] MEDS: HEPARIN SODIUM,PORCINE 5,000 UNITS/ML VIAL SQ SCH ×2 (08:26→22:20)
[2017-02-04] MEDS: DOCUSATE SODIUM 100 MG CAPSULE PO SCH ×2 (08:27→22:20)
[2017-02-04 11:29] VITALS: BP 110/73
[2017-02-04] MEDS: CefoTEtan DISOD 1 GM/DEXTROSE 50 ML IV SCH (13:51)
[2017-02-04 15:38] VITALS: BP 161/96
[2017-02-04] MEDS: ACETAMINOPHEN 325 MG TABLET PO PRN (16:28)
[2017-02-04 19:20] VITALS: BP 121/72
[2017-02-04] MEDS: QUEtiapine FUMARATE 200 MG TABLET PO SCH (22:20)
[2017-02-04 23:30] VITALS: BP 129/81
[2017-02-05] MEDS: CefoTEtan DISOD 1 GM/DEXTROSE 50 ML IV SCH ×2 (02:59→12:13)
[2017-02-05 04:55] VITALS: BP 143/86
[2017-02-05 06:00] LABS: BASOPHILS % (AUTO) 0.1 % (0.0-2.0); EOSINOPHILS % (AUTO) 0.8 % (1.0-6.0); HEMATOCRIT 30.5 % (41-53); HEMOGLOBIN 10.4 g/dL (13.5-17.5); LYMPHOCYTES # (AUTO) 0.9 K/uL (1.0-4.8); LYMPHOCYTES % (AUTO) 22.4 % (22.0-44.0); MEAN CORPUSCULAR HEMOGLOBIN 30.7 pg (26.0-34.0); MEAN CORPUSCULAR HGB CONC 34.1 G/dL (31.0-37.0); MEAN CORPUSCULAR VOLUME 90 fL (80-100); MONOCYTES # (AUTO) 0.4 K/uL (0.1-1.0); MONOCYTES % (AUTO) 10.6 % (2.0-9.0); NEUTROPHILS # (AUTO) 2.7 K/uL (1.8-7.7); NEUTROPHILS % (AUTO) 66.1 % (40.0-70.0); PLATELET COUNT (AUTO) 221 K/uL (150-450); RED BLOOD CELL COUNT(AUTO) 3.39 MIL/uL (4.50-5.90); RED CELL DISTRIBUTION WIDTH 13.9 % (11.5-14.5); WHITE BLOOD COUNT (AUTO) 4.1 K/uL (4.5-11.0)
[2017-02-05 06:10] LABS: CALCIUM, TOTAL 8.4 mg/dL (8.8-10.5); CREATININE 1.69 mg/dL (0.60-1.30); POTASSIUM 3.8 mmol/L (3.5-5.1)
[2017-02-05] MEDS: GlipiZIDE 5 MG TABLET PO SCH ×2 (06:47→17:13)
[2017-02-05] MEDS: SODIUM CHLORIDE 0.9% 1,000 ML IV SCH ×2 (06:48→16:55)
[2017-02-05 07:25] VITALS: BP 143/80
[2017-02-05] MEDS: DOCUSATE SODIUM 100 MG CAPSULE PO SCH ×2 (08:40→20:19)
[2017-02-05] MEDS: PANTOPRAZOLE SODIUM 40 MG DR TABLET PO SCH (08:40)
[2017-02-05] MEDS: HEPARIN SODIUM,PORCINE 5,000 UNITS/ML VIAL SQ SCH ×2 (08:40→20:19)
[2017-02-05 11:11] VITALS: BP 144/102
[2017-02-05] MEDS: INSULIN ASPART 100 UNITS/ML SQ PRN ×3 (12:20→20:24)
[2017-02-05 16:22] VITALS: BP 131/81
[2017-02-05 17:43] LABS: GLUCOSE COMMENT 1 Received Meds; GLUCOSE,POINT OF CARE 225 MG/DL (70-110)
[2017-02-05 17:43] LABS: GLUCOSE COMMENT 1 Received Meds; GLUCOSE,POINT OF CARE 176 MG/DL (70-110)
[2017-02-05 17:47] LABS: GLUCOSE COMMENT 1 Received Meds; GLUCOSE,POINT OF CARE 196 MG/DL (70-110)
[2017-02-05 17:47] LABS: GLUCOSE COMMENT 1 Received Meds; GLUCOSE,POINT OF CARE 211 MG/DL (70-110)
[2017-02-05 17:47] LABS: GLUCOSE COMMENT 1 Received Meds; GLUCOSE,POINT OF CARE 170 MG/DL (70-110)
[2017-02-05 17:48] LABS: GLUCOSE COMMENT 1 Received Meds; GLUCOSE,POINT OF CARE 176 MG/DL (70-110)
[2017-02-05 18:02] LABS: GLUCOSE COMMENT 1 Received Meds; GLUCOSE,POINT OF CARE 177 MG/DL (70-110)
[2017-02-05 18:02] LABS: GLUCOSE COMMENT 1 Received Meds; GLUCOSE,POINT OF CARE 287 MG/DL (70-110)
[2017-02-05 19:53] VITALS: BP 146/98
[2017-02-05] MEDS: QUEtiapine FUMARATE 200 MG TABLET PO SCH (20:19)
[2017-02-05 23:42] LABS: GLUCOSE COMMENT 1 Received Meds; GLUCOSE,POINT OF CARE 257 MG/DL (70-110)
[2017-02-05 23:47] VITALS: BP 147/82
[2017-02-06] MEDS: CefoTEtan DISOD 1 GM/DEXTROSE 50 ML IV SCH ×2 (00:05→12:39)
[2017-02-06] MEDS: SODIUM CHLORIDE 0.9% 1,000 ML IV SCH (03:26)
[2017-02-06 04:51] VITALS: BP 121/81
[2017-02-06] MEDS: GlipiZIDE 5 MG TABLET PO SCH ×2 (05:57→17:21)
[2017-02-06] MEDS: INSULIN ASPART 100 UNITS/ML SQ PRN ×4 (06:01→21:09)
[2017-02-06 07:24] VITALS: BP 130/87
[2017-02-06] MEDS: HEPARIN SODIUM,PORCINE 5,000 UNITS/ML VIAL SQ SCH ×2 (08:59→21:10)
[2017-02-06] MEDS: PANTOPRAZOLE SODIUM 40 MG DR TABLET PO SCH (08:59)
[2017-02-06] MEDS: DOCUSATE SODIUM 100 MG CAPSULE PO SCH ×2 (08:59→21:10)
[2017-02-06 11:10] VITALS: BP 132/88
[2017-02-06] MEDS ORDERED: SODIUM CHLORIDE 0.9% 1,000 ML IV ONE (13:09)
[2017-02-06 15:20] VITALS: BP 137/84
[2017-02-06 19:22] LABS: GLUCOSE COMMENT 1 Received Meds; GLUCOSE,POINT OF CARE 176 MG/DL (70-110)
[2017-02-06 20:07] VITALS: BP 158/98
[2017-02-06] MEDS: QUEtiapine FUMARATE 200 MG TABLET PO SCH (21:09)
[2017-02-07 00:12] VITALS: BP 114/71
[2017-02-07] MEDS ORDERED: SODIUM CHLORIDE 0.9% 500 ML IV ONE (00:32)
[2017-02-07] MEDS: CefoTEtan DISOD 1 GM/DEXTROSE 50 ML IV SCH ×2 (00:52→14:46)
[2017-02-07 02:12] LABS: GLUCOSE COMMENT 1 Received Meds; GLUCOSE,POINT OF CARE 292 MG/DL (70-110)
[2017-02-07 05:12] VITALS: BP 118/74
[2017-02-07] MEDS: GlipiZIDE 5 MG TABLET PO SCH ×2 (06:23→16:58)
[2017-02-07] MEDS: INSULIN ASPART 100 UNITS/ML SQ PRN ×4 (06:28→21:12)
[2017-02-07 07:57] VITALS: BP 126/81
[2017-02-07 08:37] LABS: GLUCOSE COMMENT 1 Received Meds; GLUCOSE,POINT OF CARE 224 MG/DL (70-110)
[2017-02-07] MEDS: PANTOPRAZOLE SODIUM 40 MG DR TABLET PO SCH (08:56)
[2017-02-07] MEDS: DOCUSATE SODIUM 100 MG CAPSULE PO SCH ×2 (08:57→20:07)
[2017-02-07] MEDS: HEPARIN SODIUM,PORCINE 5,000 UNITS/ML VIAL SQ SCH ×2 (08:57→20:11)
[2017-02-07 11:27] LABS: GLUCOSE COMMENT 1 Received Meds; GLUCOSE,POINT OF CARE 223 MG/DL (70-110)
[2017-02-07 11:36] VITALS: BP 136/92
[2017-02-07 15:40] VITALS: BP 131/89
[2017-02-07 17:07] LABS: GLUCOSE COMMENT 1 Received Meds; GLUCOSE,POINT OF CARE 234 MG/DL (70-110)
[2017-02-07 19:32] VITALS: BP 149/103
[2017-02-07] MEDS: QUEtiapine FUMARATE 200 MG TABLET PO SCH (20:07)
[2017-02-07] MEDS ORDERED: INSULIN DETEMIR 100 UNITS/ML SQ SCH (21:00)
[2017-02-07 23:22] LABS: GLUCOSE,POINT OF CARE 165 MG/DL (70-110)
[2017-02-08] VITALS (7 sets, daily range): BP systolic 103–127; BP diastolic 71–86
[2017-02-08] MEDS: CefoTEtan DISOD 1 GM/DEXTROSE 50 ML IV SCH ×2 (01:48→11:57)
[2017-02-08 05:45] LABS: BASOPHILS # (AUTO) 0.01 K/uL (0.00-0.20); BASOPHILS % (AUTO) 0.3 % (0.0-2.0); EOSINOPHILS # (AUTO) 0.08 K/uL (0.00-0.70); EOSINOPHILS % (AUTO) 1.82 % (1.0-6.0); HEMATOCRIT 31.9 % (41-53); HEMOGLOBIN 10.7 g/dL (13.5-17.5); LYMPHOCYTES # (AUTO) 1.8 K/uL (1.0-4.8); LYMPHOCYTES % (AUTO) 39.5 % (22.0-44.0); MEAN CORPUSCULAR HEMOGLOBIN 29.8 pg (26.0-34.0); MEAN CORPUSCULAR HGB CONC 33.6 G/dL (31.0-37.0); MEAN CORPUSCULAR VOLUME 89 fL (80-100); MONOCYTES # (AUTO) 0.4 K/uL (0.1-1.0); MONOCYTES % (AUTO) 8.1 % (2.0-9.0); NEUTROPHILS # (AUTO) 2.3 K/uL (1.8-7.7); NEUTROPHILS % (AUTO) 50.3 % (40.0-70.0); PLATELET COUNT (AUTO) 189 K/uL (150-450); RED CELL DISTRIBUTION WIDTH 14.1 % (11.5-14.5); WHITE BLOOD COUNT (AUTO) 4.6 K/uL (4.5-11.0)
[2017-02-08] MEDS: INSULIN ASPART 100 UNITS/ML SQ PRN ×4 (05:45→20:12)
[2017-02-08 06:03] LABS: GLUCOSE COMMENT 1 Received Meds; GLUCOSE,POINT OF CARE 217 MG/DL (70-110)
[2017-02-08 06:21] LABS: CALCIUM, TOTAL 9.2 mg/dL (8.8-10.5); CREATININE 1.49 mg/dL (0.60-1.30); POTASSIUM 4.2 mmol/L (3.5-5.1)
[2017-02-08 07:40] LABS: RBC MORPHOLOGY COMMENT NORMAL RBC MORPH
[2017-02-08] MEDS: DOCUSATE SODIUM 100 MG CAPSULE PO SCH ×2 (08:02→20:11)
[2017-02-08] MEDS: PANTOPRAZOLE SODIUM 40 MG DR TABLET PO SCH (08:02)
[2017-02-08] MEDS: HEPARIN SODIUM,PORCINE 5,000 UNITS/ML VIAL SQ SCH ×2 (08:02→20:11)
[2017-02-08] MEDS: GlipiZIDE 5 MG TABLET PO SCH ×2 (08:02→17:44)
[2017-02-08 14:52] LABS: GLUCOSE COMMENT 1 Received Meds; GLUCOSE,POINT OF CARE 236 MG/DL (70-110)
[2017-02-08 19:57] LABS: GLUCOSE COMMENT 1 Received Meds; GLUCOSE,POINT OF CARE 169 MG/DL (70-110)
[2017-02-08] MEDS: QUEtiapine FUMARATE 200 MG TABLET PO SCH (20:11)
[2017-02-08] MEDS ORDERED: INSULIN DETEMIR 100 UNITS/ML SQ SCH (21:00)
[2017-02-08 21:12] LABS: GLUCOSE COMMENT 1 Received Meds; GLUCOSE,POINT OF CARE 234 MG/DL (70-110)
[2017-02-09 05:01] VITALS: BP 96/61
[2017-02-09] MEDS: GlipiZIDE 5 MG TABLET PO SCH (05:40)
[2017-02-09] MEDS: INSULIN ASPART 100 UNITS/ML SQ PRN ×2 (05:41→12:19)
[2017-02-09 06:02] LABS: GLUCOSE COMMENT 1 Received Meds; GLUCOSE,POINT OF CARE 215 MG/DL (70-110)
[2017-02-09 07:52] VITALS: BP 97/67
[2017-02-09] MEDS: PANTOPRAZOLE SODIUM 40 MG DR TABLET PO SCH (08:54)
[2017-02-09] MEDS: DOCUSATE SODIUM 100 MG CAPSULE PO SCH (08:54)
[2017-02-09] MEDS: HEPARIN SODIUM,PORCINE 5,000 UNITS/ML VIAL SQ SCH (08:54)
[2017-02-09 12:13] LABS: GLUCOSE COMMENT 1 Received Meds; GLUCOSE,POINT OF CARE 340 MG/DL (70-110)
[2017-02-09 13:15] VITALS: BP 113/84
[2017-02-09 15:28] VITALS: BP 125/88
[2017-02-11 11:52] LABS: GLUCOSE COMMENT 1 Received Meds; GLUCOSE,POINT OF CARE 248 MG/DL (70-110)
[2017-02-11 11:52] LABS: GLUCOSE COMMENT 1 Received Meds; GLUCOSE,POINT OF CARE 167 MG/DL (70-110)
== END 2017-02-09 16:15 | disposition home or self-care (01) | DRG 683 ==
LOC: EMS 22:03 → 5S 02-02 02:46 → 6N 02-06 13:39
PROVIDERS: ADMIT Internal Medicine; ATTEND Internal Medicine
DX: N17.9 Acute kidney failure, unspecified (principal); N39.0 Urinary tract infection, site not specified; E11.22 Type 2 diabetes mellitus with diabetic chronic kidney disease; I95.9 Hypotension, unspecified; F20.0 Paranoid schizophrenia; E11.65 Type 2 diabetes mellitus with hyperglycemia; R00.0 Tachycardia, unspecified; F99 Mental disorder, not otherwise specified; Z59.0 Homelessness; Z79.84 Long term (current) use of oral hypoglycemic drugs; Z79.4 Long term (current) use of insulin; Z79.899 Other long term (current) drug therapy; I12.9 Hypertensive chronic kidney disease with stage 1 through stage 4 chronic kidney disease, or unspecified chronic kidney disease; N18.9 Chronic kidney disease, unspecified
CPT/HCPCS: 80307; 82948; 82962; 83036; 87040; 87086; 93005; 96374; 99285; J0696; J1644; J3490; J7030; J7040

== ENCOUNTER 2017-02-09 16:30 | Inpatient (IN) | payer OTHER, MEDICAID ==
[~2017-02-09] VITALS: Ht 162.6 cm; Wt 67.6 kg
[~2017-02-09 16:30] MED LIST changes: +INSNPH SQ; +INSREG SQ
[2017-02-09 17:20] VITALS: BP 128/92
[2017-02-09] MEDS ORDERED: ZOLPIDEM TARTRATE 10 MG TABLET PO PRN (17:30)
[2017-02-09] MEDS ORDERED: HALOPERIDOL 5 MG TABLET PO PRN (17:30)
[2017-02-09] MEDS ORDERED: LORazepam 2 MG TABLET PO PRN (17:30)
[2017-02-09] MEDS ORDERED: BISACODYL 5 MG EC TABLET PO PRN (20:00)
[2017-02-09] MEDS ORDERED: ACETAMINOPHEN 325 MG TABLET PO PRN (20:00)
[2017-02-09] MEDS ORDERED: DEXTROSE 50%-WATER 25 GM/50 ML SYRINGE IVP PRN (20:15)
[2017-02-09] MEDS: INSULIN DETEMIR 100 UNITS/ML SQ SCH (21:11)
[2017-02-09] MEDS: INSULIN ASPART 100 UNITS/ML SQ PRN (21:12)
[2017-02-10 06:02] LABS: GLUCOSE,POINT OF CARE 191 MG/DL (70-110)
[2017-02-10] MEDS: GlipiZIDE 10 MG TABLET PO SCH ×2 (07:09→16:43)
[2017-02-10] MEDS: INSULIN ASPART 100 UNITS/ML SQ PRN ×4 (07:10→20:54)
[2017-02-10] MEDS: PANTOPRAZOLE SODIUM 40 MG DR TABLET PO SCH (08:08)
[2017-02-10 08:16] VITALS: BP 149/98
[2017-02-10 09:37] LABS: GLUCOSE,POINT OF CARE 316 MG/DL (70-110)
[2017-02-10 13:06] LABS: GLUCOSE,POINT OF CARE 221 MG/DL (70-110)
[2017-02-10 19:37] VITALS: BP 152/89
[2017-02-10] MEDS: INSULIN DETEMIR 100 UNITS/ML SQ SCH (21:14)
[2017-02-11 03:42] VITALS: BP 160/108
[2017-02-11] MEDS: GlipiZIDE 10 MG TABLET PO SCH ×2 (07:15→16:32)
[2017-02-11] MEDS: INSULIN ASPART 100 UNITS/ML SQ PRN ×2 (07:20→11:35)
[2017-02-11 08:00] VITALS: BP 145/64
[2017-02-11] MEDS: LISINOPRIL 5 MG TABLET PO SCH (09:01)
[2017-02-11] MEDS: PANTOPRAZOLE SODIUM 40 MG DR TABLET PO SCH (09:01)
[2017-02-11 16:37] LABS: GLUCOSE COMMENT 1 Received Meds; GLUCOSE,POINT OF CARE 282 MG/DL (70-110)
[2017-02-11 17:14] VITALS: BP 150/71
[2017-02-11] MEDS: DIVALPROEX SODIUM 500 MG DR TABLET PO SCH (18:48)
[2017-02-11 20:46] LABS: GLUCOSE COMMENT 1 Received Meds; GLUCOSE,POINT OF CARE 210 MG/DL (70-110)
[2017-02-11] MEDS: QUEtiapine FUMARATE 200 MG TABLET PO SCH (20:58)
[2017-02-11] MEDS: INSULIN DETEMIR 100 UNITS/ML SQ SCH (20:59)
[2017-02-12 05:43] LABS: GLUCOSE COMMENT 1 Received Meds; GLUCOSE,POINT OF CARE 181 MG/DL (70-110)
[2017-02-12] MEDS: GlipiZIDE 10 MG TABLET PO SCH ×2 (06:54→17:21)
[2017-02-12] MEDS: INSULIN ASPART 100 UNITS/ML SQ PRN ×4 (06:56→21:10)
[2017-02-12 08:20] VITALS: BP 81/58
[2017-02-12 08:45] VITALS: BP 88/62
[2017-02-12] MEDS: DIVALPROEX SODIUM 500 MG DR TABLET PO SCH ×3 (08:56→17:21)
[2017-02-12] MEDS: PANTOPRAZOLE SODIUM 40 MG DR TABLET PO SCH (08:56)
[2017-02-12] MEDS: QUEtiapine FUMARATE 200 MG TABLET PO SCH ×2 (08:58→20:22)
[2017-02-12] MEDS: LISINOPRIL 5 MG TABLET PO SCH (09:00)
[2017-02-12 11:54] LABS: GLUCOSE,POINT OF CARE 226 MG/DL (70-110)
[2017-02-12 15:32] LABS: GLUCOSE,POINT OF CARE 189 MG/DL (70-110)
[2017-02-12 15:32] LABS: GLUCOSE COMMENT 1 Received Meds; GLUCOSE,POINT OF CARE 236 MG/DL (70-110)
[2017-02-12 15:32] LABS: GLUCOSE COMMENT 1 Received Meds; GLUCOSE,POINT OF CARE 199 MG/DL (70-110)
[2017-02-12 15:32] LABS: GLUCOSE COMMENT 1 Received Meds; GLUCOSE,POINT OF CARE 218 MG/DL (70-110)
[2017-02-12 17:24] VITALS: BP 99/69
[2017-02-12 17:24] LABS: GLUCOSE COMMENT 1 Received Meds; GLUCOSE,POINT OF CARE 240 MG/DL (70-110)
[2017-02-12 20:37] LABS: GLUCOSE COMMENT 1 Received Meds; GLUCOSE,POINT OF CARE 210 MG/DL (70-110)
[2017-02-12] MEDS: INSULIN DETEMIR 100 UNITS/ML SQ SCH (21:09)
[2017-02-13] MEDS: GlipiZIDE 10 MG TABLET PO SCH ×2 (06:28→16:26)
[2017-02-13 07:02] LABS: GLUCOSE,POINT OF CARE 95 MG/DL (70-110)
[2017-02-13 08:00] VITALS: BP 113/80
[2017-02-13] MEDS: LISINOPRIL 5 MG TABLET PO SCH (09:00)
[2017-02-13] MEDS: QUEtiapine FUMARATE 200 MG TABLET PO SCH ×2 (09:00→20:41)
[2017-02-13] MEDS: PANTOPRAZOLE SODIUM 40 MG DR TABLET PO SCH (09:00)
[2017-02-13] MEDS: DIVALPROEX SODIUM 500 MG DR TABLET PO SCH ×3 (13:00→16:26)
[2017-02-13] MEDS: INSULIN ASPART 100 UNITS/ML SQ PRN ×2 (17:11→20:52)
[2017-02-13 17:35] VITALS: BP 112/88
[2017-02-13] MEDS: INSULIN DETEMIR 100 UNITS/ML SQ SCH (20:51)
[2017-02-14 05:03] LABS: GLUCOSE COMMENT 1 Received Meds; GLUCOSE,POINT OF CARE 241 MG/DL (70-110)
[2017-02-14 05:03] LABS: GLUCOSE,POINT OF CARE 199 MG/DL (70-110)
[2017-02-14] MEDS: GlipiZIDE 10 MG TABLET PO SCH ×2 (06:48→17:13)
[2017-02-14 08:21] VITALS: BP 109/79
[2017-02-14] MEDS: DIVALPROEX SODIUM 500 MG DR TABLET PO SCH ×3 (09:18→17:13)
[2017-02-14] MEDS: PANTOPRAZOLE SODIUM 40 MG DR TABLET PO SCH (09:18)
[2017-02-14] MEDS: LISINOPRIL 5 MG TABLET PO SCH (09:18)
[2017-02-14] MEDS: QUEtiapine FUMARATE 200 MG TABLET PO SCH ×2 (09:18→20:39)
[2017-02-14] MEDS: INSULIN ASPART 100 UNITS/ML SQ PRN ×3 (11:54→20:46)
[2017-02-14 12:13] LABS: GLUCOSE,POINT OF CARE 181 MG/DL (70-110)
[2017-02-14 12:13] LABS: GLUCOSE COMMENT 1 FASTING; GLUCOSE,POINT OF CARE 128 MG/DL (70-110)
[2017-02-14 16:31] VITALS: BP 118/91
[2017-02-14] MEDS: INSULIN DETEMIR 100 UNITS/ML SQ SCH (20:45)
[2017-02-15 06:04] LABS: GLUCOSE COMMENT 1 FASTING; GLUCOSE,POINT OF CARE 131 MG/DL (70-110)
[2017-02-15] MEDS: GlipiZIDE 10 MG TABLET PO SCH ×2 (07:08→17:29)
[2017-02-15 08:16] VITALS: BP 114/87
[2017-02-15] MEDS: PANTOPRAZOLE SODIUM 40 MG DR TABLET PO SCH (08:42)
[2017-02-15] MEDS: LISINOPRIL 5 MG TABLET PO SCH (08:42)
[2017-02-15] MEDS: QUEtiapine FUMARATE 200 MG TABLET PO SCH ×2 (08:42→17:30)
[2017-02-15] MEDS: DIVALPROEX SODIUM 500 MG DR TABLET PO SCH ×3 (08:43→17:31)
[2017-02-15 09:59] LABS: GLUCOSE,POINT OF CARE 154 MG/DL (70-110)
[2017-02-15 09:59] LABS: GLUCOSE COMMENT 1 Received Meds; GLUCOSE,POINT OF CARE 171 MG/DL (70-110)
[2017-02-15 11:38] LABS: GLUCOSE,POINT OF CARE 170 MG/DL (70-110)
[2017-02-15] MEDS: INSULIN ASPART 100 UNITS/ML SQ PRN ×2 (14:40→21:37)
[2017-02-15 16:30] VITALS: BP 123/76
[2017-02-15] MEDS: DESONIDE 0.05% TP SCH (17:29)
[2017-02-15 17:42] LABS: GLUCOSE COMMENT 1 FASTING; GLUCOSE COMMENT 2 Received Meds; GLUCOSE,POINT OF CARE 103 MG/DL (70-110)
[2017-02-15] MEDS: INSULIN DETEMIR 100 UNITS/ML SQ SCH (21:36)
[2017-02-15 21:37] LABS: GLUCOSE COMMENT 1 FASTING; GLUCOSE,POINT OF CARE 159 MG/DL (70-110)
[2017-02-16 06:13] LABS: GLUCOSE,POINT OF CARE 130 MG/DL (70-110)
[2017-02-16] MEDS: GlipiZIDE 10 MG TABLET PO SCH ×2 (07:01→16:39)
[2017-02-16] MEDS: INSULIN ASPART 100 UNITS/ML SQ PRN ×2 (07:07→11:54)
[2017-02-16 09:25] VITALS: BP 132/98
[2017-02-16] MEDS: DOCUSATE SODIUM 100 MG CAPSULE PO PRN (09:39)
[2017-02-16] MEDS: DIVALPROEX SODIUM 500 MG DR TABLET PO SCH ×3 (09:39→16:39)
[2017-02-16] MEDS: LISINOPRIL 5 MG TABLET PO SCH (09:39)
[2017-02-16] MEDS: PANTOPRAZOLE SODIUM 40 MG DR TABLET PO SCH (09:39)
[2017-02-16] MEDS: QUEtiapine FUMARATE 200 MG TABLET PO SCH ×2 (10:02→16:39)
[2017-02-16] MEDS: DESONIDE 0.05% TP SCH ×2 (10:02→16:39)
[2017-02-16 11:52] LABS: GLUCOSE,POINT OF CARE 154 MG/DL (70-110)
[2017-02-16 17:02] LABS: GLUCOSE,POINT OF CARE 139 MG/DL (70-110)
[2017-02-16 18:26] VITALS: BP 114/85
[2017-02-16 20:41] LABS: GLUCOSE,POINT OF CARE 118 MG/DL (70-110)
[2017-02-16] MEDS: INSULIN DETEMIR 100 UNITS/ML SQ SCH (20:50)
[2017-02-17 06:17] LABS: GLUCOSE,POINT OF CARE 74 MG/DL (70-110)
[2017-02-17] MEDS: INSULIN ASPART 100 UNITS/ML SQ PRN ×3 (06:40→20:40)
[2017-02-17] MEDS: GlipiZIDE 10 MG TABLET PO SCH ×2 (06:56→17:30)
[2017-02-17 08:30] VITALS: BP 144/98
[2017-02-17] MEDS: LISINOPRIL 5 MG TABLET PO SCH (08:59)
[2017-02-17] MEDS: PANTOPRAZOLE SODIUM 40 MG DR TABLET PO SCH (08:59)
[2017-02-17] MEDS: QUEtiapine FUMARATE 200 MG TABLET PO SCH ×2 (08:59→16:22)
[2017-02-17] MEDS: DIVALPROEX SODIUM 500 MG DR TABLET PO SCH ×3 (08:59→16:22)
[2017-02-17] MEDS: DESONIDE 0.05% TP SCH ×2 (09:00→16:22)
[2017-02-17 11:17] LABS: GLUCOSE,POINT OF CARE 145 MG/DL (70-110)
[2017-02-17 16:27] LABS: GLUCOSE COMMENT 1 Received Meds; GLUCOSE,POINT OF CARE 113 MG/DL (70-110)
[2017-02-17 16:50] VITALS: BP 110/85
[2017-02-17 20:37] LABS: GLUCOSE COMMENT 1 Received Meds; GLUCOSE,POINT OF CARE 176 MG/DL (70-110)
[2017-02-17] MEDS: INSULIN DETEMIR 100 UNITS/ML SQ SCH (20:40)
[2017-02-18 06:08] LABS: GLUCOSE,POINT OF CARE 145 MG/DL (70-110)
[2017-02-18] MEDS: INSULIN ASPART 100 UNITS/ML SQ PRN ×2 (07:09→16:59)
[2017-02-18] MEDS: GlipiZIDE 10 MG TABLET PO SCH ×2 (07:09→16:34)
[2017-02-18 08:30] VITALS: BP 134/95
[2017-02-18] MEDS: LISINOPRIL 5 MG TABLET PO SCH (09:32)
[2017-02-18] MEDS: PANTOPRAZOLE SODIUM 40 MG DR TABLET PO SCH (09:32)
[2017-02-18] MEDS: DESONIDE 0.05% TP SCH ×2 (09:32→16:35)
[2017-02-18] MEDS: DIVALPROEX SODIUM 500 MG ER TABLET PO SCH ×2 (09:33→16:35)
[2017-02-18] MEDS: QUEtiapine FUMARATE 200 MG TABLET PO SCH ×2 (09:33→16:33)
[2017-02-18 11:22] LABS: GLUCOSE,POINT OF CARE 101 MG/DL (70-110)
[2017-02-18] MEDS: ARIPiprazole 10 MG TABLET PO SCH (13:40)
[2017-02-18 16:32] LABS: GLUCOSE COMMENT 1 Received Meds; GLUCOSE,POINT OF CARE 210 MG/DL (70-110)
[2017-02-18 19:22] VITALS: BP 133/91
[2017-02-18] MEDS: INSULIN DETEMIR 100 UNITS/ML SQ SCH (21:00)
[2017-02-19] MEDS: GlipiZIDE 10 MG TABLET PO SCH ×2 (06:55→16:53)
[2017-02-19 08:00] VITALS: BP 132/102
[2017-02-19] MEDS: QUEtiapine FUMARATE 200 MG TABLET PO SCH ×2 (08:47→16:53)
[2017-02-19] MEDS: DIVALPROEX SODIUM 500 MG ER TABLET PO SCH ×2 (08:47→16:52)
[2017-02-19] MEDS: DOCUSATE SODIUM 100 MG CAPSULE PO PRN (08:47)
[2017-02-19] MEDS: LISINOPRIL 5 MG TABLET PO SCH (08:48)
[2017-02-19] MEDS: DESONIDE 0.05% TP SCH ×2 (08:48→16:53)
[2017-02-19] MEDS: PANTOPRAZOLE SODIUM 40 MG DR TABLET PO SCH (08:48)
[2017-02-19] MEDS: ARIPiprazole 10 MG TABLET PO SCH (08:49)
[2017-02-19 09:56] LABS: GLUCOSE COMMENT 1 Received Meds; GLUCOSE,POINT OF CARE 111 MG/DL (70-110)
[2017-02-19 10:00] VITALS: BP 116/74
[2017-02-19 10:12] LABS: GLUCOSE,POINT OF CARE 118 MG/DL (70-110)
[2017-02-19 17:00] VITALS: BP 136/94
[2017-02-19 18:07] LABS: GLUCOSE,POINT OF CARE 187 MG/DL (70-110)
[2017-02-19] MEDS: INSULIN ASPART 100 UNITS/ML SQ PRN (18:14)
[2017-02-19] MEDS: INSULIN DETEMIR 100 UNITS/ML SQ SCH (21:23)
[2017-02-19 21:33] LABS: GLUCOSE,POINT OF CARE 194 MG/DL (70-110)
[2017-02-20 06:23] LABS: GLUCOSE,POINT OF CARE 105 MG/DL (70-110)
[2017-02-20] MEDS: GlipiZIDE 10 MG TABLET PO SCH ×2 (07:26→16:45)
[2017-02-20 08:18] VITALS: BP 149/115
[2017-02-20] MEDS: LISINOPRIL 5 MG TABLET PO SCH (08:50)
[2017-02-20] MEDS: DIVALPROEX SODIUM 500 MG ER TABLET PO SCH ×2 (08:50→16:45)
[2017-02-20] MEDS: PANTOPRAZOLE SODIUM 40 MG DR TABLET PO SCH (08:50)
[2017-02-20] MEDS: QUEtiapine FUMARATE 200 MG TABLET PO SCH ×2 (08:50→16:45)
[2017-02-20] MEDS: DESONIDE 0.05% TP SCH ×2 (08:51→16:44)
[2017-02-20] MEDS: ARIPiprazole 10 MG TABLET PO SCH (08:51)
[2017-02-20] MEDS ORDERED: ARIPiprazole LAUROXIL ER SUSPENSION 882 MG/3.2 ML SYRINGE IM SCH (09:00)
[2017-02-20 11:22] LABS: GLUCOSE COMMENT 1 Received Meds; GLUCOSE,POINT OF CARE 141 MG/DL (70-110)
[2017-02-20] MEDS: INSULIN ASPART 100 UNITS/ML SQ PRN ×2 (11:53→23:06)
[2017-02-20 17:00] VITALS: BP 130/94
[2017-02-20 17:58] LABS: GLUCOSE,POINT OF CARE 132 MG/DL (70-110)
[2017-02-20 21:18] VITALS: BP 130/94
[2017-02-20 21:42] LABS: GLUCOSE,POINT OF CARE 260 MG/DL (70-110)
[2017-02-20] MEDS: INSULIN DETEMIR 100 UNITS/ML SQ SCH (23:05)
[2017-02-21] MEDS: CloNIDine HCL 0.1 MG TABLET PO PRN (05:26)
[2017-02-21 05:46] LABS: GLUCOSE,POINT OF CARE 114 MG/DL (70-110)
[2017-02-21 05:49] VITALS: BP 158/112
[2017-02-21] MEDS: INSULIN ASPART 100 UNITS/ML SQ PRN (06:41)
[2017-02-21] MEDS: GlipiZIDE 10 MG TABLET PO SCH ×2 (07:11→17:12)
[2017-02-21 08:02] VITALS: BP 132/90
[2017-02-21] MEDS: DIVALPROEX SODIUM 500 MG ER TABLET PO SCH ×2 (08:19→17:12)
[2017-02-21] MEDS: PANTOPRAZOLE SODIUM 40 MG DR TABLET PO SCH (08:19)
[2017-02-21] MEDS: ARIPiprazole 10 MG TABLET PO SCH (08:19)
[2017-02-21] MEDS: QUEtiapine FUMARATE 200 MG TABLET PO SCH ×2 (08:19→17:12)
[2017-02-21] MEDS: LISINOPRIL 5 MG TABLET PO SCH (08:20)
[2017-02-21] MEDS: DESONIDE 0.05% TP SCH ×2 (08:20→17:12)
[2017-02-21 11:22] LABS: GLUCOSE,POINT OF CARE 117 MG/DL (70-110)
[2017-02-21 16:57] VITALS: BP 141/98
[2017-02-21] MEDS: INSULIN DETEMIR 100 UNITS/ML SQ SCH (21:00)
[2017-02-21 22:58] LABS: GLUCOSE,POINT OF CARE 99 MG/DL (70-110)
[2017-02-22 02:00] VITALS: BP 141/103
[2017-02-22 06:23] LABS: GLUCOSE,POINT OF CARE 97 MG/DL (70-110)
[2017-02-22] MEDS: GlipiZIDE 10 MG TABLET PO SCH ×2 (06:29→16:57)
[2017-02-22 08:00] VITALS: BP 127/99
[2017-02-22] MEDS: DIVALPROEX SODIUM 500 MG ER TABLET PO SCH ×2 (08:42→16:58)
[2017-02-22] MEDS: QUEtiapine FUMARATE 200 MG TABLET PO SCH ×2 (08:42→16:57)
[2017-02-22] MEDS: ARIPiprazole 10 MG TABLET PO SCH (08:42)
[2017-02-22] MEDS: PANTOPRAZOLE SODIUM 40 MG DR TABLET PO SCH (08:42)
[2017-02-22] MEDS: DOCUSATE SODIUM 100 MG CAPSULE PO PRN (08:42)
[2017-02-22] MEDS: LISINOPRIL 5 MG TABLET PO SCH (08:42)
[2017-02-22] MEDS: DESONIDE 0.05% TP SCH (08:48)
[2017-02-22 16:00] VITALS: BP 130/89
[2017-02-22 17:49] LABS: GLUCOSE,POINT OF CARE 118 MG/DL (70-110)
[2017-02-22 20:47] LABS: GLUCOSE,POINT OF CARE 141 MG/DL (70-110)
[2017-02-22] MEDS: INSULIN DETEMIR 100 UNITS/ML SQ SCH (21:52)
[2017-02-23 05:33] LABS: GLUCOSE COMMENT 1 Received Meds; GLUCOSE,POINT OF CARE 82 MG/DL (70-110)
[2017-02-23] MEDS: GlipiZIDE 10 MG TABLET PO SCH ×2 (07:01→16:24)
[2017-02-23] MEDS: DOCUSATE SODIUM 100 MG CAPSULE PO PRN (07:48)
[2017-02-23 07:50] VITALS: BP 153/111
[2017-02-23] MEDS: CloNIDine HCL 0.1 MG TABLET PO PRN (07:50)
[2017-02-23] MEDS: QUEtiapine FUMARATE 200 MG TABLET PO SCH ×2 (08:01→16:24)
[2017-02-23] MEDS: DIVALPROEX SODIUM 500 MG ER TABLET PO SCH ×2 (08:02→16:24)
[2017-02-23] MEDS: PANTOPRAZOLE SODIUM 40 MG DR TABLET PO SCH (08:02)
[2017-02-23] MEDS: ARIPiprazole 10 MG TABLET PO SCH (08:02)
[2017-02-23] MEDS: LISINOPRIL 5 MG TABLET PO SCH (08:02)
[2017-02-23 08:30] VITALS: BP 153/111
[2017-02-23 11:07] LABS: GLUCOSE,POINT OF CARE 134 MG/DL (70-110)
[2017-02-23 16:15] VITALS: BP 105/71
[2017-02-23 16:43] LABS: GLUCOSE,POINT OF CARE 137 MG/DL (70-110)
[2017-02-23 20:17] LABS: GLUCOSE,POINT OF CARE 128 MG/DL (70-110)
[2017-02-23] MEDS: INSULIN DETEMIR 100 UNITS/ML SQ SCH (20:26)
[2017-02-24] MEDS: CloNIDine HCL 0.1 MG TABLET PO PRN ×2 (02:36→08:30)
[2017-02-24 02:38] VITALS: BP 152/101
[2017-02-24 06:12] LABS: GLUCOSE COMMENT 1 Juice/Food/D50 Given; GLUCOSE,POINT OF CARE 64 MG/DL (70-110)
[2017-02-24] MEDS: GlipiZIDE 10 MG TABLET PO SCH (06:40)
[2017-02-24] MEDS: INSULIN ASPART 100 UNITS/ML SQ PRN (06:41)
[2017-02-24 06:43] LABS: GLUCOSE COMMENT 1 Repeated; GLUCOSE COMMENT 2 Received Meds; GLUCOSE,POINT OF CARE 125 MG/DL (70-110)
[2017-02-24 08:00] VITALS: BP 136/84
[2017-02-24] MEDS: LISINOPRIL 5 MG TABLET PO SCH (08:00)
[2017-02-24] MEDS: ARIPiprazole 10 MG TABLET PO SCH (08:00)
[2017-02-24] MEDS: PANTOPRAZOLE SODIUM 40 MG DR TABLET PO SCH (08:00)
[2017-02-24] MEDS: DIVALPROEX SODIUM 500 MG ER TABLET PO SCH (08:00)
[2017-02-24] MEDS: QUEtiapine FUMARATE 200 MG TABLET PO SCH (08:00)
[2017-02-24] MEDS ORDERED: ARIP882S IM (10:40)
[2017-02-24] MEDS ORDERED: ARIP10TA8 PO (10:43)
[2017-02-24] MEDS ORDERED: GLIP10 PO (10:44)
[2017-02-24] MEDS ORDERED: DIVA500T52 PO (10:44)
[2017-02-24] MEDS ORDERED: PANT40TA25 PO (10:45)
[2017-02-24] MEDS ORDERED: LISI-660 PO (10:45)
[2017-02-24 11:18] LABS: GLUCOSE,POINT OF CARE 73 MG/DL (70-110)
== END 2017-02-24 14:14 | disposition home or self-care (01) | DRG 885 ==
LOC: 3EX 16:30
PROVIDERS: ADMIT Psychiatry & Neurology Psychiatry; ATTEND Psychiatry & Neurology Psychiatry
DX: F20.0 Paranoid schizophrenia (principal); E11.22 Type 2 diabetes mellitus with diabetic chronic kidney disease; R45.851 Suicidal ideations; D64.9 Anemia, unspecified; I12.9 Hypertensive chronic kidney disease with stage 1 through stage 4 chronic kidney disease, or unspecified chronic kidney disease; N18.9 Chronic kidney disease, unspecified; K21.9 Gastro-esophageal reflux disease without esophagitis; Z59.0 Homelessness; Z79.899 Other long term (current) drug therapy
CPT/HCPCS: 82962; 87081

== ENCOUNTER 2017-02-27 13:24 | Inpatient (IN) | payer OTHER, MEDICAID ==
[~2017-02-27] VITALS: Ht 162.6 cm; Wt 66.4 kg
[~2017-02-27 13:24] MED LIST changes: +ARIP10TA8 PO; +ARIP882S IM; -DIVA500T35 PO; +DIVA500T52 PO; +GLIP10 PO; -INSNPH SQ; -INSREG SQ; +LISI-660 PO; -NIFE60TA5 PO; -OMEG100033 PO; +PANT40TA25 PO; -PROP10TA73 PO; -SIMV-259 PO; -VITAD1000 PO
[2017-02-27 13:42] LABS: GLUCOSE,POINT OF CARE 106 MG/DL (70-110)
[2017-02-27 15:09] LABS: BASOPHILS % (AUTO) 0.4 % (0.0-2.0); EOSINOPHILS % (AUTO) 1.3 % (1.0-6.0); HEMATOCRIT 32.6 % (41-53); HEMOGLOBIN 11.1 g/dL (13.5-17.5); LYMPHOCYTES # (AUTO) 1.7 K/uL (1.0-4.8); LYMPHOCYTES % (AUTO) 32.1 % (22.0-44.0); MEAN CORPUSCULAR HEMOGLOBIN 31.6 pg (26.0-34.0); MEAN CORPUSCULAR HGB CONC 33.9 G/dL (31.0-37.0); MEAN CORPUSCULAR VOLUME 93 fL (80-100); MONOCYTES # (AUTO) 0.6 K/uL (0.1-1.0); MONOCYTES % (AUTO) 11.2 % (2.0-9.0); NEUTROPHILS # (AUTO) 2.8 K/uL (1.8-7.7); PLATELET COUNT (AUTO) 165 K/uL (150-450); RED BLOOD CELL COUNT(AUTO) 3.49 MIL/uL (4.50-5.90); RED CELL DISTRIBUTION WIDTH 16.9 % (11.5-14.5)
[2017-02-27 15:56] LABS: ANION GAP 6 mmol/L (8-16); CALCIUM, TOTAL 8.4 mg/dL (8.8-10.5); CARBON DIOXIDE 29 mmol/L (22-29); CHLORIDE 108 mmol/L (98-107); CREATININE 1.85 mg/dL (0.60-1.30); GLOMERULAR FILTR. RATE CALC 38 mL/min (>60); GLUCOSE,RANDOM 191 mg/dL (70-110); POTASSIUM 3.8 mmol/L (3.5-5.1); SODIUM SERUM 143 mmol/L (136-145); UREA NITROGEN, BLOOD 20 mg/dL (7-18)
[2017-02-27] MEDS ORDERED: LORazepam 2 MG TABLET PO PRN (16:00)
[2017-02-27] MEDS ORDERED: HALOPERIDOL 5 MG TABLET PO PRN (16:00)
[2017-02-27 16:10] LABS: ALANINE AMINOTRANSFERASE 10 U/L (12-78); ALKALINE PHOSPHATASE 80 U/L (46-116); ASPARTATE AMINOTRANSFERASE 14 U/L (15-37); BILIRUBIN,TOTAL 0.4 mg/dL (0.1-1.0); TOTAL PROTEIN, SERUM 6.7 g/dL (6.4-8.2)
[2017-02-27 16:32] LABS: AMPHET/METH SCREEN,URINE NEGATIVE (NEGATIVE); BARBITURATE SCREEN, URINE NEGATIVE (NEGATIVE); BENZODIAZEPINES SCREEN,URINE NEGATIVE (NEGATIVE); CANNABINOID SCREEN,URINE NEGATIVE (NEGATIVE); COCAINE SCREEN,URINE NEGATIVE (NEGATIVE); METHADONE SCREEN, URINE NEGATIVE (NEGATIVE); OPIATE SCREEN,URINE NEGATIVE (NEGATIVE)
[2017-02-27 16:38] LABS: PHENCYCLIDINE SCREEN,URINE NEGATIVE (NEGATIVE)
[2017-02-27 17:31] LABS: CHOL/HDL RATIO 3.6 (4.2-7.3); CHOLESTEROL 145 mg/dL (131-200); FREE T4 (FREE THYROXINE) 0.63 ng/dL (0.76-1.46); HDL CHOLESTEROL 40 mg/dL (40-60); LDL CHOL (CALC.) 80 mg/dL (0-130); THYROID STIMULATING HORMONE 1.49 uIU/mL (0.36-3.74); TRIGLYCERIDES 126 mg/dL (15-150)
[2017-02-27] MEDS: DIVALPROEX SODIUM 500 MG ER TABLET PO SCH (18:38)
[2017-02-27] MEDS ORDERED: CloNIDine HCL 0.1 MG TABLET PO PRN (19:00)
[2017-02-27] MEDS ORDERED: GLUCAGON,HUMAN RECOMBINANT 1 MG VIAL IM PRN (19:30)
[2017-02-27 20:30] VITALS: BP 155/105
[2017-02-27] MEDS: PROPRANOLOL HCL 10 MG TABLET PO SCH (20:49)
[2017-02-27] MEDS: SIMVASTATIN 10 MG TABLET PO SCH (20:56)
[2017-02-27] MEDS: QUEtiapine FUMARATE 200 MG TABLET PO SCH (20:56)
[2017-02-27] MEDS: INSULIN ASPART 100 UNITS/ML SQ PRN (21:00)
[2017-02-27 22:00] VITALS: BP_SYST 139; BP_SYST 142; BP_DIAS 88
[2017-02-28 00:27] LABS: GLUCOMETER DEV NAME(LOC) BV2S; GLUCOSE,POINT OF CARE 91 MG/DL (70-110)
[2017-02-28 00:32] LABS: GLUCOMETER DEV NAME(LOC) BV2S; GLUCOSE,POINT OF CARE 235 MG/DL (70-110)
[2017-02-28] MEDS ORDERED: -PHARMACY VACCINE NOTE- MISC ONE (02:15)
[2017-02-28] MEDS ORDERED: INFLUENZA VIRUS VACCINE QVS 2017-18 (3YR+)/PF 60 MCG/0.5 ML SYRINGE IM ONE (02:15)
[2017-02-28 02:29] VITALS: BP 140/108
[2017-02-28 06:23] LABS: GLUCOMETER DEV NAME(LOC) BV2S; GLUCOSE,POINT OF CARE 150 MG/DL (70-110)
[2017-02-28] MEDS: INSULIN ASPART 100 UNITS/ML SQ PRN ×3 (06:46→21:30)
[2017-02-28 07:56] VITALS: BP 162/113
[2017-02-28] MEDS: LISINOPRIL 20 MG TABLET PO SCH (08:09)
[2017-02-28] MEDS: PROPRANOLOL HCL 10 MG TABLET PO SCH ×2 (08:14→16:12)
[2017-02-28] MEDS: ARIPiprazole 10 MG TABLET PO SCH (08:14)
[2017-02-28] MEDS: DIVALPROEX SODIUM 500 MG ER TABLET PO SCH ×2 (08:14→16:12)
[2017-02-28] MEDS: OMEGA-3/DHA/EPA/FISH OIL 500 MG CAPSULE PO SCH (08:14)
[2017-02-28] MEDS: CHOLECALCIFEROL (VIT D3) 1,000 UNITS TABLET PO SCH (08:15)
[2017-02-28] MEDS: NIFEdipine 60 MG ER TABLET PO SCH (08:15)
[2017-02-28] MEDS: QUEtiapine FUMARATE 200 MG TABLET PO SCH ×2 (08:15→21:10)
[2017-02-28] MEDS ORDERED: PROPRANOLOL HCL 10 MG TABLET PO SCH (09:00)
[2017-02-28 10:27] VITALS: BP 155/108
[2017-02-28 11:18] LABS: GLUCOMETER DEV NAME(LOC) BV2S; GLUCOSE,POINT OF CARE 178 MG/DL (70-110)
[2017-02-28 14:51] VITALS: BP 112/71
[2017-02-28 16:09] VITALS: BP 110/72
[2017-02-28 17:07] LABS: GLUCOMETER DEV NAME(LOC) BV2S; GLUCOSE,POINT OF CARE 239 MG/DL (70-110)
[2017-02-28] MEDS: SIMVASTATIN 10 MG TABLET PO SCH (21:09)
[2017-03-01 01:03] LABS: GLUCOMETER DEV NAME(LOC) BV2S; GLUCOSE,POINT OF CARE 228 MG/DL (70-110)
[2017-03-01 05:17] VITALS: BP 107/70
[2017-03-01 06:22] LABS: GLUCOMETER DEV NAME(LOC) BV2S; GLUCOSE,POINT OF CARE 157 MG/DL (70-110)
[2017-03-01] MEDS: INSULIN ASPART 100 UNITS/ML SQ PRN ×3 (06:53→16:43)
[2017-03-01] MEDS: LISINOPRIL 20 MG TABLET PO SCH (08:23)
[2017-03-01] MEDS: QUEtiapine FUMARATE 200 MG TABLET PO SCH ×2 (08:23→20:45)
[2017-03-01] MEDS: NIFEdipine 60 MG ER TABLET PO SCH (08:23)
[2017-03-01] MEDS: ARIPiprazole 10 MG TABLET PO SCH (08:23)
[2017-03-01] MEDS: PROPRANOLOL HCL 10 MG TABLET PO SCH ×2 (08:23→16:51)
[2017-03-01] MEDS: CHOLECALCIFEROL (VIT D3) 1,000 UNITS TABLET PO SCH (08:23)
[2017-03-01] MEDS: DIVALPROEX SODIUM 500 MG ER TABLET PO SCH ×2 (08:23→16:51)
[2017-03-01] MEDS: OMEGA-3/DHA/EPA/FISH OIL 500 MG CAPSULE PO SCH (08:24)
[2017-03-01 08:42] VITALS: BP 119/81
[2017-03-01 11:27] LABS: GLUCOMETER DEV NAME(LOC) BV2S; GLUCOSE,POINT OF CARE 176 MG/DL (70-110)
[2017-03-01 16:27] VITALS: BP 120/78
[2017-03-01 16:42] LABS: GLUCOMETER DEV NAME(LOC) BV2S; GLUCOSE,POINT OF CARE 235 MG/DL (70-110)
[2017-03-01] MEDS: SIMVASTATIN 10 MG TABLET PO SCH (20:45)
[2017-03-01 20:58] LABS: GLUCOMETER DEV NAME(LOC) BV2S; GLUCOSE,POINT OF CARE 139 MG/DL (70-110)
[2017-03-02 00:36] VITALS: BP 102/63
[2017-03-02 06:22] LABS: GLUCOMETER DEV NAME(LOC) BV2S; GLUCOSE,POINT OF CARE 151 MG/DL (70-110)
[2017-03-02] MEDS: INSULIN ASPART 100 UNITS/ML SQ PRN ×4 (07:02→20:48)
[2017-03-02 08:11] VITALS: BP 117/79
[2017-03-02] MEDS: PROPRANOLOL HCL 10 MG TABLET PO SCH ×2 (08:37→16:52)
[2017-03-02] MEDS: OMEGA-3/DHA/EPA/FISH OIL 500 MG CAPSULE PO SCH (08:37)
[2017-03-02] MEDS: CHOLECALCIFEROL (VIT D3) 1,000 UNITS TABLET PO SCH (08:37)
[2017-03-02] MEDS: ARIPiprazole 10 MG TABLET PO SCH (08:48)
[2017-03-02] MEDS: DIVALPROEX SODIUM 500 MG ER TABLET PO SCH ×2 (08:48→16:53)
[2017-03-02] MEDS: LISINOPRIL 20 MG TABLET PO SCH (08:48)
[2017-03-02] MEDS: NIFEdipine 60 MG ER TABLET PO SCH (08:48)
[2017-03-02] MEDS: QUEtiapine FUMARATE 200 MG TABLET PO SCH ×2 (08:48→20:43)
[2017-03-02 11:38] LABS: GLUCOMETER DEV NAME(LOC) BV2S; GLUCOSE,POINT OF CARE 178 MG/DL (70-110)
[2017-03-02] MEDS ORDERED: HALOPERIDOL DECANOATE 50 MG/ML VIAL IM PRN (12:00)
[2017-03-02 16:43] VITALS: BP 152/94
[2017-03-02 17:23] LABS: GLUCOMETER DEV NAME(LOC) BV2S; GLUCOSE,POINT OF CARE 151 MG/DL (70-110)
[2017-03-02 18:58] VITALS: BP 149/92
[2017-03-02] MEDS: SIMVASTATIN 10 MG TABLET PO SCH (20:43)
[2017-03-02 21:48] LABS: GLUCOMETER DEV NAME(LOC) BV2S; GLUCOSE,POINT OF CARE 178 MG/DL (70-110)
[2017-03-03 06:28] LABS: GLUCOMETER DEV NAME(LOC) BV2S; GLUCOSE,POINT OF CARE 133 MG/DL (70-110)
[2017-03-03 06:49] VITALS: BP 118/88
[2017-03-03 08:10] VITALS: BP 125/89
[2017-03-03] MEDS: PROPRANOLOL HCL 10 MG TABLET PO SCH ×2 (08:21→16:37)
[2017-03-03] MEDS: ARIPiprazole 10 MG TABLET PO SCH (08:21)
[2017-03-03] MEDS: DIVALPROEX SODIUM 500 MG ER TABLET PO SCH ×2 (08:22→16:37)
[2017-03-03] MEDS: NIFEdipine 60 MG ER TABLET PO SCH (08:22)
[2017-03-03] MEDS: CHOLECALCIFEROL (VIT D3) 1,000 UNITS TABLET PO SCH (08:22)
[2017-03-03] MEDS: QUEtiapine FUMARATE 200 MG TABLET PO SCH ×2 (08:22→20:35)
[2017-03-03] MEDS: LISINOPRIL 20 MG TABLET PO SCH (08:22)
[2017-03-03] MEDS: OMEGA-3/DHA/EPA/FISH OIL 500 MG CAPSULE PO SCH (08:22)
[2017-03-03] MEDS: INSULIN ASPART 100 UNITS/ML SQ PRN ×3 (11:11→20:44)
[2017-03-03 13:20] LABS: GLUCOMETER DEV NAME(LOC) BV2S; GLUCOSE,POINT OF CARE 159 MG/DL (70-110)
[2017-03-03 16:15] VITALS: BP 127/79
[2017-03-03] MEDS: SIMVASTATIN 10 MG TABLET PO SCH (20:35)
[2017-03-04 03:53] VITALS: BP 113/80
[2017-03-04 08:57] VITALS: BP 117/95
[2017-03-04 08:59] LABS: GLUCOMETER DEV NAME(LOC) BV2S; GLUCOSE,POINT OF CARE 180 MG/DL (70-110)
[2017-03-04] MEDS: NIFEdipine 60 MG ER TABLET PO SCH (09:00)
[2017-03-04] MEDS: OMEGA-3/DHA/EPA/FISH OIL 500 MG CAPSULE PO SCH (09:00)
[2017-03-04] MEDS: PROPRANOLOL HCL 10 MG TABLET PO SCH ×2 (09:00→16:43)
[2017-03-04] MEDS: CHOLECALCIFEROL (VIT D3) 1,000 UNITS TABLET PO SCH (09:00)
[2017-03-04] MEDS: DIVALPROEX SODIUM 500 MG ER TABLET PO SCH ×2 (09:00→16:43)
[2017-03-04] MEDS: LISINOPRIL 20 MG TABLET PO SCH (09:00)
[2017-03-04] MEDS: ARIPiprazole 10 MG TABLET PO SCH (09:00)
[2017-03-04] MEDS: QUEtiapine FUMARATE 200 MG TABLET PO SCH (09:00)
[2017-03-04 09:05] LABS: GLUCOMETER DEV NAME(LOC) BV2N3; GLUCOSE,POINT OF CARE 183 MG/DL (70-110)
[2017-03-04] MEDS ORDERED: HALOPERIDOL LACTATE 5 MG/ML VIAL IM PRN (10:45)
[2017-03-04] MEDS: INSULIN ASPART 100 UNITS/ML SQ PRN ×2 (11:06→16:54)
[2017-03-04 11:14] LABS: GLUCOMETER DEV NAME(LOC) BV2N3; GLUCOSE,POINT OF CARE 169 MG/DL (70-110)
[2017-03-04 16:23] VITALS: BP 140/80
[2017-03-04 16:27] LABS: GLUCOMETER DEV NAME(LOC) BV2N3; GLUCOSE,POINT OF CARE 191 MG/DL (70-110)
[2017-03-04] MEDS: HALOPERIDOL 5 MG TABLET PO SCH (20:27)
[2017-03-04] MEDS: SIMVASTATIN 10 MG TABLET PO SCH (20:27)
[2017-03-05 01:17] VITALS: BP 140/83
[2017-03-05] MEDS: ZOLPIDEM TARTRATE 10 MG TABLET PO PRN ×2 (01:22→21:45)
[2017-03-05] MEDS: INSULIN ASPART 100 UNITS/ML SQ PRN ×4 (06:35→16:32)
[2017-03-05 06:38] LABS: GLUCOMETER DEV NAME(LOC) BV2N3; GLUCOSE,POINT OF CARE 241 MG/DL (70-110)
[2017-03-05 08:59] VITALS: BP 143/94
[2017-03-05] MEDS: OMEGA-3/DHA/EPA/FISH OIL 500 MG CAPSULE PO SCH (09:35)
[2017-03-05] MEDS: CHOLECALCIFEROL (VIT D3) 1,000 UNITS TABLET PO SCH (09:36)
[2017-03-05] MEDS: ARIPiprazole 10 MG TABLET PO SCH (09:36)
[2017-03-05] MEDS: DIVALPROEX SODIUM 500 MG ER TABLET PO SCH ×2 (09:36→16:06)
[2017-03-05] MEDS: NIFEdipine 60 MG ER TABLET PO SCH (09:36)
[2017-03-05] MEDS: LISINOPRIL 20 MG TABLET PO SCH (09:37)
[2017-03-05] MEDS: PROPRANOLOL HCL 10 MG TABLET PO SCH ×2 (09:37→16:06)
[2017-03-05 11:48] LABS: GLUCOMETER DEV NAME(LOC) BV2N3; GLUCOSE,POINT OF CARE 172 MG/DL (70-110)
[2017-03-05 11:48] LABS: GLUCOMETER DEV NAME(LOC) BV2N3; GLUCOSE,POINT OF CARE 250 MG/DL (70-110)
[2017-03-05 16:17] LABS: GLUCOMETER DEV NAME(LOC) BV2N3; GLUCOSE,POINT OF CARE 195 MG/DL (70-110)
[2017-03-05 16:25] VITALS: BP 137/74
[2017-03-05] MEDS: HALOPERIDOL 5 MG TABLET PO SCH (20:42)
[2017-03-05] MEDS: SIMVASTATIN 10 MG TABLET PO SCH (20:42)
[2017-03-06 06:11] VITALS: BP 129/87
[2017-03-06 07:17] LABS: GLUCOMETER DEV NAME(LOC) BV2N3; GLUCOSE,POINT OF CARE 191 MG/DL (70-110)
[2017-03-06] MEDS: INSULIN ASPART 100 UNITS/ML SQ PRN ×3 (07:24→16:53)
[2017-03-06] MEDS: LISINOPRIL 20 MG TABLET PO SCH (08:45)
[2017-03-06] MEDS: PROPRANOLOL HCL 10 MG TABLET PO SCH ×2 (08:45→16:17)
[2017-03-06] MEDS: NIFEdipine 60 MG ER TABLET PO SCH (08:45)
[2017-03-06] MEDS: CHOLECALCIFEROL (VIT D3) 1,000 UNITS TABLET PO SCH (08:45)
[2017-03-06] MEDS: OMEGA-3/DHA/EPA/FISH OIL 500 MG CAPSULE PO SCH (08:45)
[2017-03-06] MEDS: ARIPiprazole 10 MG TABLET PO SCH (08:45)
[2017-03-06] MEDS: DIVALPROEX SODIUM 500 MG ER TABLET PO SCH ×2 (08:45→16:17)
[2017-03-06 08:53] VITALS: BP 126/78
[2017-03-06 10:47] LABS: GLUCOMETER DEV NAME(LOC) BV2N3; GLUCOSE,POINT OF CARE 259 MG/DL (70-110)
[2017-03-06 16:27] LABS: GLUCOMETER DEV NAME(LOC) BV2N3; GLUCOSE,POINT OF CARE 220 MG/DL (70-110)
[2017-03-06 16:44] VITALS: BP 120/84
[2017-03-06] MEDS: HALOPERIDOL 5 MG TABLET PO SCH (20:30)
[2017-03-06] MEDS: SIMVASTATIN 10 MG TABLET PO SCH (20:30)
[2017-03-07 07:06] VITALS: BP 134/81
[2017-03-07] MEDS: INSULIN ASPART 100 UNITS/ML SQ PRN ×4 (07:14→20:42)
[2017-03-07 08:43] VITALS: BP 120/76
[2017-03-07] MEDS: DIVALPROEX SODIUM 500 MG ER TABLET PO SCH ×2 (09:20→16:29)
[2017-03-07] MEDS: PROPRANOLOL HCL 10 MG TABLET PO SCH ×2 (09:20→16:29)
[2017-03-07] MEDS: OMEGA-3/DHA/EPA/FISH OIL 500 MG CAPSULE PO SCH (09:20)
[2017-03-07] MEDS: CHOLECALCIFEROL (VIT D3) 1,000 UNITS TABLET PO SCH (09:20)
[2017-03-07] MEDS: ARIPiprazole 10 MG TABLET PO SCH (09:21)
[2017-03-07] MEDS: LISINOPRIL 20 MG TABLET PO SCH (09:21)
[2017-03-07] MEDS: NIFEdipine 60 MG ER TABLET PO SCH (09:22)
[2017-03-07 11:22] LABS: GLUCOMETER DEV NAME(LOC) BV2N3; GLUCOSE,POINT OF CARE 181 MG/DL (70-110)
[2017-03-07 16:00] VITALS: BP 132/70
[2017-03-07 16:42] LABS: GLUCOMETER DEV NAME(LOC) BV2N3; GLUCOSE,POINT OF CARE 255 MG/DL (70-110)
[2017-03-07] MEDS: HALOPERIDOL 5 MG TABLET PO SCH (20:35)
[2017-03-07] MEDS: SIMVASTATIN 10 MG TABLET PO SCH (20:35)
[2017-03-07 20:38] LABS: GLUCOMETER DEV NAME(LOC) BV2S; GLUCOSE,POINT OF CARE 229 MG/DL (70-110)
[2017-03-08 00:13] VITALS: BP 107/72
[2017-03-08 06:37] LABS: GLUCOMETER DEV NAME(LOC) BV2S; GLUCOSE,POINT OF CARE 169 MG/DL (70-110)
[2017-03-08] MEDS: INSULIN ASPART 100 UNITS/ML SQ PRN ×4 (07:03→20:59)
[2017-03-08 08:43] VITALS: BP 128/67
[2017-03-08] MEDS: NIFEdipine 60 MG ER TABLET PO SCH (09:21)
[2017-03-08] MEDS: CHOLECALCIFEROL (VIT D3) 1,000 UNITS TABLET PO SCH (09:21)
[2017-03-08] MEDS: OMEGA-3/DHA/EPA/FISH OIL 500 MG CAPSULE PO SCH (09:21)
[2017-03-08] MEDS: PROPRANOLOL HCL 10 MG TABLET PO SCH ×2 (09:21→16:50)
[2017-03-08] MEDS: DIVALPROEX SODIUM 500 MG ER TABLET PO SCH ×2 (09:21→16:50)
[2017-03-08] MEDS: ARIPiprazole 10 MG TABLET PO SCH (09:21)
[2017-03-08] MEDS: LISINOPRIL 20 MG TABLET PO SCH (09:21)
[2017-03-08 11:39] LABS: GLUCOMETER DEV NAME(LOC) BV2S; GLUCOSE,POINT OF CARE 219 MG/DL (70-110)
[2017-03-08 16:17] VITALS: BP 136/86
[2017-03-08 16:53] LABS: GLUCOMETER DEV NAME(LOC) BV2S; GLUCOSE,POINT OF CARE 288 MG/DL (70-110)
[2017-03-08] MEDS: SIMVASTATIN 10 MG TABLET PO SCH (20:47)
[2017-03-08] MEDS: HALOPERIDOL 5 MG TABLET PO SCH (20:47)
[2017-03-08 21:32] LABS: GLUCOMETER DEV NAME(LOC) BV2S; GLUCOSE,POINT OF CARE 194 MG/DL (70-110)
[2017-03-09 06:37] VITALS: BP 105/60
[2017-03-09] MEDS: INSULIN ASPART 100 UNITS/ML SQ PRN ×4 (07:01→21:16)
[2017-03-09 07:02] LABS: GLUCOMETER DEV NAME(LOC) BV2S; GLUCOSE,POINT OF CARE 169 MG/DL (70-110)
[2017-03-09 08:35] VITALS: BP 114/75
[2017-03-09] MEDS: CHOLECALCIFEROL (VIT D3) 1,000 UNITS TABLET PO SCH (09:16)
[2017-03-09] MEDS: PROPRANOLOL HCL 10 MG TABLET PO SCH ×2 (09:16→16:51)
[2017-03-09] MEDS: NIFEdipine 60 MG ER TABLET PO SCH (09:16)
[2017-03-09] MEDS: ARIPiprazole 10 MG TABLET PO SCH (09:17)
[2017-03-09] MEDS: OMEGA-3/DHA/EPA/FISH OIL 500 MG CAPSULE PO SCH (09:17)
[2017-03-09] MEDS: DIVALPROEX SODIUM 500 MG ER TABLET PO SCH ×2 (09:17→16:51)
[2017-03-09] MEDS: LISINOPRIL 20 MG TABLET PO SCH (09:17)
[2017-03-09 11:43] LABS: GLUCOMETER DEV NAME(LOC) BV2S; GLUCOSE,POINT OF CARE 281 MG/DL (70-110)
[2017-03-09 16:16] VITALS: BP 109/78
[2017-03-09 16:44] LABS: GLUCOMETER DEV NAME(LOC) BV2S; GLUCOSE,POINT OF CARE 185 MG/DL (70-110)
[2017-03-09 20:58] LABS: GLUCOMETER DEV NAME(LOC) BV2S; GLUCOSE,POINT OF CARE 241 MG/DL (70-110)
[2017-03-09] MEDS ORDERED: INSULIN DETEMIR 100 UNITS/ML SQ SCH (21:00)
[2017-03-09] MEDS: HALOPERIDOL 5 MG TABLET PO SCH (21:01)
[2017-03-09] MEDS: SIMVASTATIN 10 MG TABLET PO SCH (21:01)
[2017-03-10 00:13] VITALS: BP 110/80
[2017-03-10 00:57] VITALS: BP 110/80
[2017-03-10 06:18] LABS: GLUCOMETER DEV NAME(LOC) BV2S; GLUCOSE,POINT OF CARE 161 MG/DL (70-110)
[2017-03-10] MEDS: INSULIN ASPART 100 UNITS/ML SQ PRN (07:01)
[2017-03-10] MEDS ORDERED: HALO5 PO (07:58)
[2017-03-10] MEDS ORDERED: OMEG100033 PO (08:01)
[2017-03-10] MEDS ORDERED: PROP10TA73 PO (08:01)
[2017-03-10] MEDS ORDERED: SIMV-259 PO (08:01)
[2017-03-10] MEDS ORDERED: NIFE60TA71 PO (08:01)
[2017-03-10] MEDS ORDERED: CHOL3000 PO (08:18)
[2017-03-10 08:31] VITALS: BP 106/79
[2017-03-10] MEDS: OMEGA-3/DHA/EPA/FISH OIL 500 MG CAPSULE PO SCH (08:32)
[2017-03-10] MEDS: ARIPiprazole 10 MG TABLET PO SCH (08:32)
[2017-03-10] MEDS: CHOLECALCIFEROL (VIT D3) 1,000 UNITS TABLET PO SCH (08:32)
[2017-03-10] MEDS: DIVALPROEX SODIUM 500 MG ER TABLET PO SCH (08:32)
[2017-03-10 08:40] VITALS: BP 126/70
[2017-03-10] MEDS: PROPRANOLOL HCL 10 MG TABLET PO SCH (08:42)
[2017-03-10] MEDS: NIFEdipine 60 MG ER TABLET PO SCH (08:42)
[2017-03-10] MEDS: LISINOPRIL 20 MG TABLET PO SCH (08:42)
[2017-03-20] MEDS ORDERED: ARIPiprazole LAUROXIL ER SUSPENSION 882 MG/3.2 ML SYRINGE IM SCH (09:00)
== END 2017-03-10 10:30 | disposition home or self-care (01) | DRG 885 ==
LOC: EMS 13:26 → B2X 17:49 → B2S 03-04 08:25 → B2X 03-07 17:05
PROVIDERS: ADMIT Psychiatry & Neurology Psychiatry; ATTEND Psychiatry & Neurology Psychiatry
DX: F20.0 Paranoid schizophrenia (principal); E11.22 Type 2 diabetes mellitus with diabetic chronic kidney disease; R45.851 Suicidal ideations; N18.9 Chronic kidney disease, unspecified; I12.9 Hypertensive chronic kidney disease with stage 1 through stage 4 chronic kidney disease, or unspecified chronic kidney disease; F31.9 Bipolar disorder, unspecified; E11.65 Type 2 diabetes mellitus with hyperglycemia; Z79.899 Other long term (current) drug therapy; Z87.440 Personal history of urinary (tract) infections; Z79.84 Long term (current) use of oral hypoglycemic drugs
CPT/HCPCS: 82962; 84439; 84443; 87081; 90471; 99285; G0480; J1630

== ENCOUNTER 2017-03-16 00:16 | Emergency (ER) | payer OTHER, MEDICAID ==
[~2017-03-16] VITALS: Ht 162.6 cm; Wt 70.0 kg
[~2017-03-16 00:16] MED LIST changes: -ARIP882S IM; -GLIP10 PO; +HALO5 PO; +NIFE60TA71 PO; +OMEG100033 PO; -PANT40TA25 PO; +PROP10TA73 PO; -QUET200T PO; +SIMV-259 PO
[2017-03-16 00:45] VITALS: BP 155/99
== END 2017-03-16 05:35 | disposition left against medical advice (07) ==
LOC: EMS 00:18
DX: F41.9 Anxiety disorder, unspecified (principal); F31.9 Bipolar disorder, unspecified; E11.9 Type 2 diabetes mellitus without complications; Z53.21 Procedure and treatment not carried out due to patient leaving prior to being seen by health care provider

== ENCOUNTER 2017-03-27 15:35 | Inpatient (IN) | payer MEDICARE, MEDICAID ==
[~2017-03-27] VITALS: Ht 162.6 cm; Wt 72.3 kg
[2017-03-27 15:53] LABS: GLUCOSE,POINT OF CARE 270 MG/DL (70-110)
[2017-03-27] MEDS ORDERED: HC1C1.5 TP (15:59)
[2017-03-27] MEDS ORDERED: QUET200T PO (15:59)
[2017-03-27] MEDS ORDERED: INSLAN SQ (15:59)
[2017-03-27 16:06] LABS: BASOPHILS % (AUTO) 0.6 % (0.0-2.0); EOSINOPHILS % (AUTO) 4.6 % (1.0-6.0); HEMOGLOBIN 13.2 g/dL (13.5-17.5); LYMPHOCYTES # (AUTO) 1.9 K/uL (1.0-4.8); LYMPHOCYTES % (AUTO) 35.7 % (22.0-44.0); MEAN CORPUSCULAR HGB CONC 33.8 G/dL (31.0-37.0); MEAN CORPUSCULAR VOLUME 95 fL (80-100); MONOCYTES # (AUTO) 0.4 K/uL (0.1-1.0); MONOCYTES % (AUTO) 7.8 % (2.0-9.0); NEUTROPHILS # (AUTO) 2.7 K/uL (1.8-7.7); NEUTROPHILS % (AUTO) 51.3 % (40.0-70.0); PLATELET COUNT (AUTO) 175 K/uL (150-450); RED BLOOD CELL COUNT(AUTO) 4.12 MIL/uL (4.50-5.90); RED CELL DISTRIBUTION WIDTH 15.9 % (11.5-14.5); WHITE BLOOD COUNT (AUTO) 5.3 K/uL (4.5-11.0)
[2017-03-27 16:10] LABS: ANION GAP 9 mmol/L (8-16); CALCIUM, TOTAL 8.6 mg/dL (8.8-10.5); CARBON DIOXIDE 25 mmol/L (22-29); CHLORIDE 107 mmol/L (98-107); CREATININE 1.48 mg/dL (0.60-1.30); GLOMERULAR FILTR. RATE CALC 49 mL/min (>60); POTASSIUM 3.8 mmol/L (3.5-5.1); SODIUM SERUM 141 mmol/L (136-145); UREA NITROGEN, BLOOD 23 mg/dL (7-18)
[2017-03-27 16:16] LABS: ALANINE AMINOTRANSFERASE 19 U/L (12-78); ALBUMIN 3.3 g/dL (3.4-5.0); ASPARTATE AMINOTRANSFERASE 20 U/L (15-37); BILIRUBIN,TOTAL 0.5 mg/dL (0.1-1.0); TOTAL PROTEIN, SERUM 6.9 g/dL (6.4-8.2)
[2017-03-27 17:09] LABS: VALPROIC ACID < 3 mcg/mL (50-100)
[2017-03-27] MEDS ORDERED: ZOLPIDEM TARTRATE 10 MG TABLET PO PRN (17:15)
[2017-03-27] MEDS ORDERED: HALOPERIDOL 5 MG TABLET PO PRN (17:15)
[2017-03-27] MEDS ORDERED: LORazepam 2 MG TABLET PO PRN (17:15)
[2017-03-27] MEDS ORDERED: LISI-662 PO (17:20)
[2017-03-27] MEDS ORDERED: LORazepam 2 MG TABLET PO ONE (17:45)
[2017-03-27] MEDS ORDERED: LISINOPRIL 10 MG TABLET PO ONE (17:45)
[2017-03-27 20:05] VITALS: BP 151/104
[2017-03-27] MEDS: DIVALPROEX SODIUM 500 MG DR TABLET PO SCH (20:34)
[2017-03-27 20:49] LABS: GLUCOSE,POINT OF CARE 299 MG/DL (70-110)
[2017-03-27] MEDS: HALOPERIDOL 5 MG TABLET PO SCH (20:51)
[2017-03-28] MEDS ORDERED: DEXTROSE 50%-WATER 25 GM/50 ML SYRINGE IVP PRN ×2 (00:30→01:15)
[2017-03-28] MEDS ORDERED: INSULIN ASPART 100 UNITS/ML SQ PRN (00:30)
[2017-03-28 05:24] LABS: GLUCOSE COMMENT 1 FASTING; GLUCOSE,POINT OF CARE 204 MG/DL (70-110)
[2017-03-28] MEDS: INSULIN ASPART 100 UNITS/ML SQ PRN ×4 (06:54→20:53)
[2017-03-28 08:15] VITALS: BP 143/85
[2017-03-28] MEDS: PROPRANOLOL HCL 10 MG TABLET PO SCH ×2 (08:52→16:07)
[2017-03-28] MEDS: OMEGA-3/DHA/EPA/FISH OIL 500 MG CAPSULE PO SCH (08:52)
[2017-03-28] MEDS: ARIPiprazole 10 MG TABLET PO SCH (08:52)
[2017-03-28] MEDS: DIVALPROEX SODIUM 500 MG DR TABLET PO SCH ×2 (08:53→16:07)
[2017-03-28] MEDS: NIFEdipine 60 MG ER TABLET PO SCH (08:53)
[2017-03-28] MEDS: LISINOPRIL 20 MG TABLET PO SCH (08:53)
[2017-03-28] MEDS ORDERED: PROPRANOLOL HCL 10 MG TABLET PO SCH (09:00)
[2017-03-28] MEDS ORDERED: OMEGA-3/DHA/EPA/FISH OIL 500 MG CAPSULE PO SCH (09:00)
[2017-03-28] MEDS ORDERED: LISINOPRIL 20 MG TABLET PO SCH (09:00)
[2017-03-28] MEDS ORDERED: HYDROCORTISONE 1% 30 GM CREAM TP SCH (09:00)
[2017-03-28] MEDS ORDERED: NIFEdipine 60 MG ER TABLET PO SCH (09:00)
[2017-03-28 11:34] LABS: GLUCOSE,POINT OF CARE 205 MG/DL (70-110)
[2017-03-28] MEDS: HYDROCORTISONE 1% 30 GM CREAM TP SCH (16:08)
[2017-03-28 16:13] LABS: GLUCOSE COMMENT 1 Received Meds; GLUCOSE,POINT OF CARE 260 MG/DL (70-110)
[2017-03-28 16:32] VITALS: BP 133/78
[2017-03-28] MEDS: HALOPERIDOL 5 MG TABLET PO SCH (20:39)
[2017-03-28] MEDS: SIMVASTATIN 10 MG TABLET PO SCH (20:44)
[2017-03-28 20:58] LABS: GLUCOSE COMMENT 1 Received Meds; GLUCOSE,POINT OF CARE 237 MG/DL (70-110)
[2017-03-28] MEDS ORDERED: INSULIN DETEMIR 100 UNITS/ML SQ SCH (21:00)
[2017-03-28] MEDS ORDERED: INSULIN GLARGINE,HUM.REC.ANLOG 100 UNITS/ML SQ SCH (21:00)
[2017-03-28] MEDS ORDERED: SIMVASTATIN 10 MG TABLET PO SCH (21:00)
[2017-03-29 06:06] LABS: GLUCOSE COMMENT 1 Received Meds; GLUCOSE,POINT OF CARE 228 MG/DL (70-110)
[2017-03-29] MEDS: INSULIN ASPART 100 UNITS/ML SQ PRN ×4 (07:07→20:35)
[2017-03-29 08:20] VITALS: BP 113/91
[2017-03-29] MEDS: ARIPiprazole 10 MG TABLET PO SCH (08:54)
[2017-03-29] MEDS: DIVALPROEX SODIUM 500 MG DR TABLET PO SCH ×2 (08:54→16:22)
[2017-03-29] MEDS: PROPRANOLOL HCL 10 MG TABLET PO SCH ×2 (08:55→16:22)
[2017-03-29] MEDS: OMEGA-3/DHA/EPA/FISH OIL 500 MG CAPSULE PO SCH (08:55)
[2017-03-29] MEDS: LISINOPRIL 20 MG TABLET PO SCH (08:55)
[2017-03-29] MEDS: NIFEdipine 60 MG ER TABLET PO SCH (08:55)
[2017-03-29] MEDS: HYDROCORTISONE 1% 30 GM CREAM TP SCH ×2 (08:56→16:25)
[2017-03-29 11:34] LABS: GLUCOSE,POINT OF CARE 257 MG/DL (70-110)
[2017-03-29 16:48] LABS: GLUCOSE,POINT OF CARE 273 MG/DL (70-110)
[2017-03-29 18:12] VITALS: BP 119/87
[2017-03-29 20:12] LABS: GLUCOSE COMMENT 1 Received Meds; GLUCOSE,POINT OF CARE 275 MG/DL (70-110)
[2017-03-29] MEDS: HALOPERIDOL 5 MG TABLET PO SCH (20:26)
[2017-03-29] MEDS: SIMVASTATIN 10 MG TABLET PO SCH (20:26)
[2017-03-29] MEDS: INSULIN DETEMIR 100 UNITS/ML SQ SCH (20:34)
[2017-03-30 06:13] LABS: GLUCOSE COMMENT 1 Received Meds; GLUCOSE,POINT OF CARE 192 MG/DL (70-110)
[2017-03-30] MEDS: INSULIN ASPART 100 UNITS/ML SQ PRN ×4 (06:56→20:58)
[2017-03-30] MEDS: PROPRANOLOL HCL 10 MG TABLET PO SCH ×2 (08:32→16:34)
[2017-03-30] MEDS: CHOLECALCIFEROL (VIT D3) 2,000 UNITS TABLET PO SCH (08:32)
[2017-03-30] MEDS: OMEGA-3/DHA/EPA/FISH OIL 500 MG CAPSULE PO SCH (08:32)
[2017-03-30] MEDS: NIFEdipine 60 MG ER TABLET PO SCH (08:32)
[2017-03-30] MEDS: ARIPiprazole 10 MG TABLET PO SCH (08:32)
[2017-03-30] MEDS: HYDROCORTISONE 1% 30 GM CREAM TP SCH ×2 (08:33→16:35)
[2017-03-30] MEDS: LISINOPRIL 20 MG TABLET PO SCH (08:34)
[2017-03-30] MEDS: DIVALPROEX SODIUM 500 MG DR TABLET PO SCH ×2 (08:35→16:35)
[2017-03-30 09:10] VITALS: BP 120/90
[2017-03-30 15:42] LABS: GLUCOSE COMMENT 1 Received Meds; GLUCOSE,POINT OF CARE 270 MG/DL (70-110)
[2017-03-30 17:15] VITALS: BP 125/72
[2017-03-30] MEDS: HALOPERIDOL 5 MG TABLET PO SCH (20:43)
[2017-03-30] MEDS: SIMVASTATIN 10 MG TABLET PO SCH (20:43)
[2017-03-30] MEDS: INSULIN DETEMIR 100 UNITS/ML SQ SCH (20:57)
[2017-03-31 00:10] LABS: GLUCOSE COMMENT 1 Received Meds; GLUCOSE,POINT OF CARE 275 MG/DL (70-110)
[2017-03-31 00:11] LABS: GLUCOSE,POINT OF CARE 304 MG/DL (70-110)
[2017-03-31 05:43] LABS: GLUCOSE COMMENT 1 Received Meds; GLUCOSE,POINT OF CARE 165 MG/DL (70-110)
[2017-03-31] MEDS: INSULIN ASPART 100 UNITS/ML SQ PRN ×4 (07:14→20:55)
[2017-03-31 08:30] VITALS: BP 142/83
[2017-03-31] MEDS: OMEGA-3/DHA/EPA/FISH OIL 500 MG CAPSULE PO SCH (09:09)
[2017-03-31] MEDS: PROPRANOLOL HCL 10 MG TABLET PO SCH ×2 (09:09→16:38)
[2017-03-31] MEDS: NIFEdipine 60 MG ER TABLET PO SCH (09:09)
[2017-03-31] MEDS: ARIPiprazole 10 MG TABLET PO SCH (09:10)
[2017-03-31] MEDS: LISINOPRIL 20 MG TABLET PO SCH (09:10)
[2017-03-31] MEDS: CHOLECALCIFEROL (VIT D3) 2,000 UNITS TABLET PO SCH (09:10)
[2017-03-31] MEDS: DIVALPROEX SODIUM 500 MG DR TABLET PO SCH ×2 (09:10→16:38)
[2017-03-31] MEDS: HYDROCORTISONE 1% 30 GM CREAM TP SCH ×2 (09:11→16:40)
[2017-03-31 11:17] LABS: GLUCOSE,POINT OF CARE 184 MG/DL (70-110)
[2017-03-31 16:58] VITALS: BP 144/93
[2017-03-31 18:12] LABS: GLUCOSE,POINT OF CARE 330 MG/DL (70-110)
[2017-03-31] MEDS: SIMVASTATIN 10 MG TABLET PO SCH (20:49)
[2017-03-31] MEDS: HALOPERIDOL 5 MG TABLET PO SCH (20:49)
[2017-03-31] MEDS: INSULIN DETEMIR 100 UNITS/ML SQ SCH (20:56)
[2017-03-31 21:02] LABS: GLUCOSE,POINT OF CARE 291 MG/DL (70-110)
[2017-04-01 06:08] LABS: GLUCOSE COMMENT 1 Received Meds; GLUCOSE,POINT OF CARE 171 MG/DL (70-110)
[2017-04-01] MEDS: INSULIN ASPART 100 UNITS/ML SQ PRN ×2 (07:09→22:12)
[2017-04-01] MEDS: ARIPiprazole 10 MG TABLET PO SCH (08:41)
[2017-04-01 08:42] VITALS: BP 131/78
[2017-04-01] MEDS: DIVALPROEX SODIUM 500 MG DR TABLET PO SCH ×2 (08:42→17:28)
[2017-04-01] MEDS: CHOLECALCIFEROL (VIT D3) 2,000 UNITS TABLET PO SCH (08:42)
[2017-04-01] MEDS: NIFEdipine 60 MG ER TABLET PO SCH (08:42)
[2017-04-01] MEDS: PROPRANOLOL HCL 10 MG TABLET PO SCH ×2 (08:42→17:28)
[2017-04-01] MEDS: OMEGA-3/DHA/EPA/FISH OIL 500 MG CAPSULE PO SCH (08:42)
[2017-04-01] MEDS: LISINOPRIL 20 MG TABLET PO SCH (08:42)
[2017-04-01] MEDS: HYDROCORTISONE 1% 30 GM CREAM TP SCH ×2 (08:45→17:28)
[2017-04-01 11:33] LABS: GLUCOSE COMMENT 1 Received Meds; GLUCOSE,POINT OF CARE 246 MG/DL (70-110)
[2017-04-01] MEDS: GLIMEPIRIDE 4 MG TABLET PO SCH (12:10)
[2017-04-01 16:00] VITALS: BP 142/81
[2017-04-01] MEDS: MetFORMIN HCL 500 MG TABLET PO SCH (17:28)
[2017-04-01 21:28] LABS: GLUCOSE,POINT OF CARE 256 MG/DL (70-110)
[2017-04-01] MEDS: SIMVASTATIN 10 MG TABLET PO SCH (22:01)
[2017-04-01] MEDS: HALOPERIDOL 5 MG TABLET PO SCH (22:01)
[2017-04-01] MEDS: INSULIN DETEMIR 100 UNITS/ML SQ SCH (22:12)
[2017-04-02 02:18] VITALS: BP 139/94
[2017-04-02 06:35] LABS: GLUCOSE COMMENT 1 Received Meds; GLUCOSE,POINT OF CARE 220 MG/DL (70-110)
[2017-04-02] MEDS: GLIMEPIRIDE 4 MG TABLET PO SCH (07:12)
[2017-04-02] MEDS: MetFORMIN HCL 500 MG TABLET PO SCH ×2 (07:13→17:12)
[2017-04-02] MEDS: INSULIN ASPART 100 UNITS/ML SQ PRN ×3 (07:32→23:01)
[2017-04-02 08:17] VITALS: BP 134/101
[2017-04-02] MEDS: ARIPiprazole 10 MG TABLET PO SCH (08:47)
[2017-04-02] MEDS: DIVALPROEX SODIUM 500 MG DR TABLET PO SCH ×2 (08:47→17:11)
[2017-04-02] MEDS: OMEGA-3/DHA/EPA/FISH OIL 500 MG CAPSULE PO SCH (08:47)
[2017-04-02] MEDS: PROPRANOLOL HCL 10 MG TABLET PO SCH ×2 (08:48→17:12)
[2017-04-02] MEDS: CHOLECALCIFEROL (VIT D3) 2,000 UNITS TABLET PO SCH (08:48)
[2017-04-02] MEDS: HYDROCORTISONE 1% 30 GM CREAM TP SCH ×2 (08:48→17:00)
[2017-04-02] MEDS: LISINOPRIL 20 MG TABLET PO SCH (08:48)
[2017-04-02] MEDS: NIFEdipine 60 MG ER TABLET PO SCH (08:48)
[2017-04-02 11:43] LABS: GLUCOSE,POINT OF CARE 296 MG/DL (70-110)
[2017-04-02 17:59] VITALS: BP 130/84
[2017-04-02 18:17] LABS: GLUCOSE,POINT OF CARE 310 MG/DL (70-110)
[2017-04-02 21:37] LABS: GLUCOSE,POINT OF CARE 163 MG/DL (70-110)
[2017-04-02] MEDS: HALOPERIDOL 5 MG TABLET PO SCH (21:40)
[2017-04-02] MEDS: SIMVASTATIN 10 MG TABLET PO SCH (22:54)
[2017-04-02] MEDS: INSULIN DETEMIR 100 UNITS/ML SQ SCH (23:02)
[2017-04-03 01:00] VITALS: BP 103/63
[2017-04-03] MEDS: INSULIN ASPART 100 UNITS/ML SQ PRN ×4 (07:29→21:13)
[2017-04-03] MEDS: GLIMEPIRIDE 4 MG TABLET PO SCH (07:31)
[2017-04-03] MEDS: MetFORMIN HCL 500 MG TABLET PO SCH ×2 (07:31→16:26)
[2017-04-03 08:46] VITALS: BP 121/69
[2017-04-03] MEDS: TIMOLOL MALEATE 0.25% 5 ML OPHTHALMIC SOLUTION OU SCH ×2 (09:13→20:26)
[2017-04-03] MEDS: ARIPiprazole 10 MG TABLET PO SCH (09:14)
[2017-04-03] MEDS: OMEGA-3/DHA/EPA/FISH OIL 500 MG CAPSULE PO SCH (09:14)
[2017-04-03] MEDS: CHOLECALCIFEROL (VIT D3) 2,000 UNITS TABLET PO SCH (09:14)
[2017-04-03] MEDS: NIFEdipine 60 MG ER TABLET PO SCH (09:14)
[2017-04-03] MEDS: PROPRANOLOL HCL 10 MG TABLET PO SCH ×2 (09:14→16:26)
[2017-04-03] MEDS: LISINOPRIL 20 MG TABLET PO SCH (09:14)
[2017-04-03] MEDS: HYDROCORTISONE 1% 30 GM CREAM TP SCH ×2 (09:14→16:27)
[2017-04-03] MEDS: DIVALPROEX SODIUM 500 MG DR TABLET PO SCH ×2 (09:14→16:26)
[2017-04-03 12:04] LABS: GLUCOSE,POINT OF CARE 263 MG/DL (70-110)
[2017-04-03 12:04] LABS: GLUCOSE,POINT OF CARE 264 MG/DL (70-110)
[2017-04-03 17:28] LABS: GLUCOSE,POINT OF CARE 196 MG/DL (70-110)
[2017-04-03] MEDS: HALOPERIDOL 5 MG TABLET PO SCH (20:26)
[2017-04-03] MEDS: SIMVASTATIN 10 MG TABLET PO SCH (20:26)
[2017-04-03 20:48] LABS: GLUCOSE,POINT OF CARE 208 MG/DL (70-110)
[2017-04-03 21:08] VITALS: BP 142/85
[2017-04-03] MEDS: INSULIN DETEMIR 100 UNITS/ML SQ SCH (21:12)
[2017-04-04 06:33] LABS: GLUCOSE,POINT OF CARE 128 MG/DL (70-110)
[2017-04-04] MEDS: INSULIN ASPART 100 UNITS/ML SQ PRN ×4 (06:41→21:09)
[2017-04-04 06:52] VITALS: BP 115/78
[2017-04-04] MEDS: MetFORMIN HCL 500 MG TABLET PO SCH ×2 (07:10→16:38)
[2017-04-04] MEDS: GLIMEPIRIDE 4 MG TABLET PO SCH (07:10)
[2017-04-04 08:00] VITALS: BP 126/72
[2017-04-04] MEDS: OMEGA-3/DHA/EPA/FISH OIL 500 MG CAPSULE PO SCH (08:20)
[2017-04-04] MEDS: PROPRANOLOL HCL 10 MG TABLET PO SCH ×2 (08:20→16:37)
[2017-04-04] MEDS: NIFEdipine 60 MG ER TABLET PO SCH (08:21)
[2017-04-04] MEDS: LISINOPRIL 20 MG TABLET PO SCH (08:21)
[2017-04-04] MEDS: DIVALPROEX SODIUM 500 MG DR TABLET PO SCH ×2 (08:21→16:37)
[2017-04-04] MEDS: CHOLECALCIFEROL (VIT D3) 2,000 UNITS TABLET PO SCH (08:21)
[2017-04-04] MEDS: ARIPiprazole 10 MG TABLET PO SCH (08:21)
[2017-04-04] MEDS: HYDROCORTISONE 1% 30 GM CREAM TP SCH ×2 (08:23→16:38)
[2017-04-04] MEDS: TIMOLOL MALEATE 0.25% 5 ML OPHTHALMIC SOLUTION OU SCH ×2 (08:25→20:17)
[2017-04-04 11:17] LABS: GLUCOSE COMMENT 1 Received Meds; GLUCOSE,POINT OF CARE 270 MG/DL (70-110)
[2017-04-04 17:03] LABS: GLUCOSE,POINT OF CARE 193 MG/DL (70-110)
[2017-04-04] MEDS: SIMVASTATIN 10 MG TABLET PO SCH (20:17)
[2017-04-04] MEDS: HALOPERIDOL 5 MG TABLET PO SCH (20:17)
[2017-04-04 20:48] LABS: GLUCOSE COMMENT 1 Received Meds; GLUCOSE,POINT OF CARE 156 MG/DL (70-110)
[2017-04-04] MEDS: INSULIN DETEMIR 100 UNITS/ML SQ SCH (21:08)
[2017-04-04 23:08] VITALS: BP 127/50
[2017-04-05 04:04] VITALS: BP 124/71
[2017-04-05 05:18] LABS: GLUCOSE COMMENT 1 FASTING; GLUCOSE,POINT OF CARE 176 MG/DL (70-110)
[2017-04-05] MEDS: MetFORMIN HCL 500 MG TABLET PO SCH (06:37)
[2017-04-05] MEDS: GLIMEPIRIDE 4 MG TABLET PO SCH (06:37)
[2017-04-05] MEDS: INSULIN ASPART 100 UNITS/ML SQ PRN ×2 (07:18→11:46)
[2017-04-05] MEDS: ARIPiprazole 10 MG TABLET PO SCH (09:18)
[2017-04-05] MEDS: OMEGA-3/DHA/EPA/FISH OIL 500 MG CAPSULE PO SCH (09:19)
[2017-04-05] MEDS: CHOLECALCIFEROL (VIT D3) 2,000 UNITS TABLET PO SCH (09:19)
[2017-04-05] MEDS: NIFEdipine 60 MG ER TABLET PO SCH (09:19)
[2017-04-05] MEDS: DIVALPROEX SODIUM 500 MG DR TABLET PO SCH ×2 (09:19→17:19)
[2017-04-05] MEDS: PROPRANOLOL HCL 10 MG TABLET PO SCH ×2 (09:19→17:19)
[2017-04-05] MEDS: LISINOPRIL 20 MG TABLET PO SCH (09:19)
[2017-04-05] MEDS: TIMOLOL MALEATE 0.25% 5 ML OPHTHALMIC SOLUTION OU SCH (09:20)
[2017-04-05] MEDS: HYDROCORTISONE 1% 30 GM CREAM TP SCH (09:22)
[2017-04-05 09:36] VITALS: BP 131/100
[2017-04-05] MEDS ORDERED: IBUPROFEN 600 MG TABLET PO PRN (11:15)
[2017-04-05 11:23] LABS: GLUCOSE,POINT OF CARE 212 MG/DL (70-110)
[2017-04-05 12:47] VITALS: BP 135/92
[2017-04-05] MEDS ORDERED: VITAD1000 PO (16:57)
[2017-04-05] MEDS ORDERED: GLIM4 PO (16:57)
[2017-04-05] MEDS ORDERED: INSU100V12 SQ (16:59)
[2017-04-05] MEDS ORDERED: METF500T4 PO (17:00)
[2017-04-05] MEDS ORDERED: TIMO.25OS OU (17:01)
== END 2017-04-05 18:30 | disposition home or self-care (01) | DRG 885 ==
LOC: EEVIPCON 15:38 → EMS 15:38 → 3EX 19:58
PROVIDERS: ADMIT Psychiatry & Neurology Psychiatry; ATTEND Psychiatry & Neurology Psychiatry
DX: F20.0 Paranoid schizophrenia (principal); E11.65 Type 2 diabetes mellitus with hyperglycemia; I10 Essential (primary) hypertension; H40.9 Unspecified glaucoma; F32.9 Major depressive disorder, single episode, unspecified; E78.5 Hyperlipidemia, unspecified; D64.9 Anemia, unspecified; Z79.899 Other long term (current) drug therapy; Z79.4 Long term (current) use of insulin; Z91.19 Patient's noncompliance with other medical treatment and regimen; Z91.83 Wandering in diseases classified elsewhere; Z59.0 Homelessness
CPT/HCPCS: 82652; 82962; 87081; 99285; G0480

== ENCOUNTER 2017-05-16 22:16 | Inpatient (IN) | payer MEDICARE, MEDICAID ==
[~2017-05-16] VITALS: Ht 162.6 cm; Wt 73.6 kg
[~2017-05-16 22:16] MED LIST changes: -DIVA500T52 PO; +GLIM4 PO; +HC1C1.5 TP; +INSLAN SQ; -LISI-660 PO; +LISI-662 PO; +METF500T4 PO; +TIMO.25OS OU; +VITAD1000 PO
[2017-05-16] MEDS ORDERED: LORazepam 2 MG/ML VIAL IM ONE (23:15)
[2017-05-16] MEDS ORDERED: LORazepam 2 MG TABLET PO PRN (23:15)
[2017-05-16] MEDS ORDERED: HALOPERIDOL 5 MG TABLET PO PRN (23:15)
[2017-05-16] MEDS ORDERED: ZOLPIDEM TARTRATE 10 MG TABLET PO PRN (23:15)
[2017-05-16] MEDS ORDERED: DiphenhydrAMINE HCL 50 MG/ML VIAL IM ONE (23:15)
[2017-05-16] MEDS ORDERED: HALOPERIDOL LACTATE 5 MG/ML VIAL IM ONE (23:15)
[2017-05-16 23:19] LABS: BASOPHILS # (AUTO) 0.04 K/uL (0.00-0.20); BASOPHILS % (AUTO) 0.4 % (0.0-2.0); EOSINOPHILS # (AUTO) 0.03 K/uL (0.00-0.70); EOSINOPHILS % (AUTO) 0.28 % (1.0-6.0); HEMATOCRIT 48.9 % (41-53); HEMOGLOBIN 16.4 g/dL (13.5-17.5); LYMPHOCYTES % (AUTO) 20.6 % (22.0-44.0); MEAN CORPUSCULAR HEMOGLOBIN 30.6 pg (26.0-34.0); MEAN CORPUSCULAR HGB CONC 33.6 G/dL (31.0-37.0); MEAN CORPUSCULAR VOLUME 91 fL (80-100); MONOCYTES # (AUTO) 0.5 K/uL (0.1-1.0); MONOCYTES % (AUTO) 5.1 % (2.0-9.0); NEUTROPHILS % (AUTO) 73.7 % (40.0-70.0); PLATELET COUNT (AUTO) 268 K/uL (150-450); RED BLOOD CELL COUNT(AUTO) 5.36 MIL/uL (4.50-5.90); RED CELL DISTRIBUTION WIDTH 13.2 % (11.5-14.5)
[2017-05-16 23:44] LABS: ALANINE AMINOTRANSFERASE 112 U/L (12-78); ALBUMIN 3.4 g/dL (3.4-5.0); ALKALINE PHOSPHATASE 213 U/L (46-116); ANION GAP 14 mmol/L (8-16); ASPARTATE AMINOTRANSFERASE 114 U/L (15-37); BILIRUBIN,TOTAL 0.6 mg/dL (0.1-1.0); CALCIUM, TOTAL 9.8 mg/dL (8.8-10.5); CARBON DIOXIDE 23 mmol/L (22-29); CHLORIDE 93 mmol/L (98-107); CREATININE 1.92 mg/dL (0.60-1.30); GLOMERULAR FILTR. RATE CALC 37 mL/min (>60); POTASSIUM 4.3 mmol/L (3.5-5.1); SODIUM SERUM 130 mmol/L (136-145); TOTAL PROTEIN, SERUM 8.2 g/dL (6.4-8.2); UREA NITROGEN, BLOOD 30 mg/dL (7-18)
[2017-05-16 23:48] LABS: GLUCOSE,RANDOM 607 mg/dL (70-110)
[2017-05-16 23:57] LABS: GLUCOSE,POINT OF CARE 541 MG/DL (70-110)
[2017-05-17 00:04] LABS: AMPHET/METH SCREEN,URINE POSITIVE (NEGATIVE); BARBITURATE SCREEN, URINE NEGATIVE (NEGATIVE); BENZODIAZEPINES SCREEN,URINE NEGATIVE (NEGATIVE); CANNABINOID SCREEN,URINE NEGATIVE (NEGATIVE); COCAINE SCREEN,URINE NEGATIVE (NEGATIVE); METHADONE SCREEN, URINE NEGATIVE (NEGATIVE); OPIATE SCREEN,URINE NEGATIVE (NEGATIVE); PHENCYCLIDINE SCREEN,URINE NEGATIVE (NEGATIVE)
[2017-05-17] MEDS ORDERED: SODIUM CHLORIDE 0.9% 2,000 ML IV ONE (00:15)
[2017-05-17] MEDS ORDERED: INSULIN REGULAR, HUMAN 100 UNITS/ML IVP ONE ×2 (00:15→02:15)
[2017-05-17 00:50] LABS: APPEARANCE,URINE CLEAR (CLEAR); BILIRUBIN,URINE NEGATIVE (NEGATIVE); GLUCOSE, URINE (UA) >=1000 mg/dL (NEGATIVE); KETONES,URINE TRACE mg/dL (NEGATIVE); LEUKOCYTE ESTERASE ,URINE SMALL (NEGATIVE); NITRATE,URINE NEGATIVE (NEGATIVE); OCCULT BLOOD,URINE MODERATE (NEGATIVE); PH,URINE 5.5 (5.0-8.0); PROTEIN,URINE POS 1+ (NEGATIVE); UROBILINOGEN,URINE 0.2 mg/dL (<=1.0)
[2017-05-17 00:54] LABS: CHOL/HDL RATIO 5.1 (4.2-7.3); CHOLESTEROL 260 mg/dL (131-200); HDL CHOLESTEROL 51 mg/dL (40-60); LIPASE 402 U/L (73-393); TRIGLYCERIDES 518 mg/dL (15-150)
[2017-05-17 00:55] LABS: HEMOGLOBIN A1C 10.1 % (4.5-6.2)
[2017-05-17 00:58] LABS: BACTERIA,URINE Rare /HPF (None Seen); SQUAMOUS EPITHELIAL CELL,UR Few /LPF (None Seen); WBC,URINE 26-50 /HPF (0-5)
[2017-05-17 01:27] LABS: GLUCOSE,POINT OF CARE 340 MG/DL (70-110)
[2017-05-17 03:22] LABS: GLUCOSE,POINT OF CARE 251 MG/DL (70-110)
[2017-05-17 04:13] VITALS: BP 103/87
[2017-05-17] MEDS ORDERED: DEXTROSE 50%-WATER 25 GM/50 ML SYRINGE IVP PRN (05:15)
[2017-05-17 05:28] LABS: GLUCOMETER DEV NAME(LOC) 3EI B; GLUCOSE,POINT OF CARE 279 MG/DL (70-110)
[2017-05-17] MEDS: INSULIN ASPART 100 UNITS/ML SQ PRN ×4 (07:14→20:52)
[2017-05-17] MEDS: GlipiZIDE 10 MG TABLET PO SCH ×2 (07:20→17:14)
[2017-05-17] MEDS: MetFORMIN HCL 500 MG TABLET PO SCH ×2 (07:20→17:14)
[2017-05-17] MEDS ORDERED: INSULIN DETEMIR 100 UNITS/ML SQ SCH (09:00)
[2017-05-17 10:21] VITALS: BP 124/95
[2017-05-17] MEDS: TIMOLOL MALEATE 0.25% 5 ML OPHTHALMIC SOLUTION OU SCH (11:30)
[2017-05-17] MEDS ORDERED: HYDR28.45 TP (11:52)
[2017-05-17] MEDS: ARIPiprazole 10 MG TABLET PO SCH (12:51)
[2017-05-17 16:30] VITALS: BP 128/88
[2017-05-17 16:50] LABS: CREATININE 1.69 mg/dL (0.60-1.30); POTASSIUM 4.6 mmol/L (3.5-5.1)
[2017-05-17] MEDS: DIVALPROEX SODIUM 500 MG DR TABLET PO SCH (17:14)
[2017-05-17] MEDS: INSULIN DETEMIR 100 UNITS/ML SQ SCH (17:16)
[2017-05-17] MEDS: HALOPERIDOL 5 MG TABLET PO SCH (20:47)
[2017-05-18 06:03] LABS: GLUCOMETER DEV NAME(LOC) 3EI B; GLUCOSE,POINT OF CARE 322 MG/DL (70-110)
[2017-05-18] MEDS: GlipiZIDE 10 MG TABLET PO SCH ×2 (06:35→16:35)
[2017-05-18] MEDS: INSULIN ASPART 100 UNITS/ML SQ PRN ×4 (07:03→21:55)
[2017-05-18 07:04] LABS: CREATININE 1.41 mg/dL (0.60-1.30); POTASSIUM 4.1 mmol/L (3.5-5.1)
[2017-05-18] MEDS: ATORVASTATIN CALCIUM 40 MG TABLET PO SCH (08:13)
[2017-05-18] MEDS: TIMOLOL MALEATE 0.25% 5 ML OPHTHALMIC SOLUTION OU SCH ×2 (08:13→16:43)
[2017-05-18] MEDS: DIVALPROEX SODIUM 500 MG DR TABLET PO SCH ×2 (08:13→16:35)
[2017-05-18] MEDS: LISINOPRIL 20 MG TABLET PO SCH (08:14)
[2017-05-18] MEDS: ARIPiprazole 10 MG TABLET PO SCH (08:14)
[2017-05-18 08:59] VITALS: BP 140/98
[2017-05-18] MEDS: INSULIN DETEMIR 100 UNITS/ML SQ SCH ×2 (09:11→17:04)
[2017-05-18] MEDS: CHOLECALCIFEROL (VIT D3) 2,000 UNITS TABLET PO SCH (13:17)
[2017-05-18 16:21] VITALS: BP 134/74
[2017-05-18] MEDS: HALOPERIDOL 5 MG TABLET PO SCH (21:21)
[2017-05-19 06:03] LABS: GLUCOMETER DEV NAME(LOC) 3EI B; GLUCOSE,POINT OF CARE 274 MG/DL (70-110)
[2017-05-19] MEDS: GlipiZIDE 10 MG TABLET PO SCH ×2 (06:31→16:46)
[2017-05-19] MEDS: INSULIN ASPART 100 UNITS/ML SQ PRN ×4 (06:52→20:58)
[2017-05-19 07:34] LABS: BASOPHILS % (AUTO) 0.3 % (0.0-2.0); EOSINOPHILS % (AUTO) 1.1 % (1.0-6.0); HEMATOCRIT 43.2 % (41-53); HEMOGLOBIN 14.7 g/dL (13.5-17.5); LYMPHOCYTES # (AUTO) 2.2 K/uL (1.0-4.8); MEAN CORPUSCULAR HEMOGLOBIN 31.5 pg (26.0-34.0); MEAN CORPUSCULAR VOLUME 92 fL (80-100); MONOCYTES # (AUTO) 0.2 K/uL (0.1-1.0); MONOCYTES % (AUTO) 3.6 % (2.0-9.0); NEUTROPHILS # (AUTO) 2.8 K/uL (1.8-7.7); RED BLOOD CELL COUNT(AUTO) 4.67 MIL/uL (4.50-5.90); RED CELL DISTRIBUTION WIDTH 13.2 % (11.5-14.5)
[2017-05-19 07:47] LABS: CALCIUM, TOTAL 9.2 mg/dL (8.8-10.5); CREATININE 1.28 mg/dL (0.60-1.30); MAGNESIUM 1.9 mg/dL (1.80-2.40); PHOSPHORUS 3.4 mg/dL (2.5-4.9)
[2017-05-19] MEDS ORDERED: FLUCONAZOLE 200 MG TABLET PO ONE (08:30)
[2017-05-19] MEDS: TIMOLOL MALEATE 0.25% 5 ML OPHTHALMIC SOLUTION OU SCH ×2 (08:58→16:45)
[2017-05-19] MEDS: CHOLECALCIFEROL (VIT D3) 2,000 UNITS TABLET PO SCH (08:59)
[2017-05-19] MEDS: ATORVASTATIN CALCIUM 40 MG TABLET PO SCH (08:59)
[2017-05-19] MEDS: ARIPiprazole 10 MG TABLET PO SCH (08:59)
[2017-05-19] MEDS: DIVALPROEX SODIUM 500 MG DR TABLET PO SCH ×2 (08:59→16:46)
[2017-05-19] MEDS: LISINOPRIL 20 MG TABLET PO SCH (08:59)
[2017-05-19] MEDS: INSULIN DETEMIR 100 UNITS/ML SQ SCH ×2 (09:20→17:04)
[2017-05-19 09:37] VITALS: BP 143/107
[2017-05-19 09:56] LABS: PLATELET COUNT (AUTO) 158 K/uL (150-450)
[2017-05-19 15:59] LABS: APPEARANCE,URINE CLEAR (CLEAR); BILIRUBIN,URINE NEGATIVE (NEGATIVE); GLUCOSE, URINE (UA) 500 mg/dL (NEGATIVE); KETONES,URINE NEGATIVE (NEGATIVE); LEUKOCYTE ESTERASE ,URINE NEGATIVE (NEGATIVE); NITRATE,URINE NEGATIVE (NEGATIVE); OCCULT BLOOD,URINE SMALL (NEGATIVE); PH,URINE 6.5 (5.0-8.0); PROTEIN,URINE NEGATIVE (NEGATIVE); UROBILINOGEN,URINE 0.2 mg/dL (<=1.0)
[2017-05-19 16:08] LABS: CREATININE,URINE RANDOM 10.1 mg/dL (30.0-125.0); PROTEIN,URINE RANDOM 8 mg/dL (0-11.9); SODIUM,URINE RANDOM 38 mmol/l (20-110)
[2017-05-19 16:34] LABS: RBC,URINE 0-2 /HPF (0-2); WBC,URINE 0-2 /HPF (0-5)
[2017-05-19 16:35] LABS: BACTERIA,URINE Few /HPF (None Seen); SQUAMOUS EPITHELIAL CELL,UR Few /LPF (None Seen)
[2017-05-19] MEDS: HALOPERIDOL 5 MG TABLET PO SCH (20:54)
[2017-05-19 21:00] VITALS: BP 149/95
[2017-05-20 06:28] LABS: GLUCOMETER DEV NAME(LOC) 3EI B; GLUCOSE,POINT OF CARE 197 MG/DL (70-110)
[2017-05-20] MEDS: INSULIN ASPART 100 UNITS/ML SQ PRN ×4 (06:46→21:33)
[2017-05-20] MEDS: GlipiZIDE 10 MG TABLET PO SCH ×2 (06:47→16:43)
[2017-05-20 08:06] LABS: ANION GAP 6 mmol/L (8-16); CARBON DIOXIDE 25 mmol/L (22-29); CHLORIDE 112 mmol/L (98-107); CREATININE 1.22 mg/dL (0.60-1.30); GLOMERULAR FILTR. RATE CALC > 60 mL/min (>60); GLUCOSE,RANDOM 201 mg/dL (70-110); PHOSPHORUS 3.2 mg/dL (2.5-4.9); POTASSIUM 3.9 mmol/L (3.5-5.1); SODIUM SERUM 143 mmol/L (136-145); UREA NITROGEN, BLOOD 27 mg/dL (7-18)
[2017-05-20] MEDS: TIMOLOL MALEATE 0.25% 5 ML OPHTHALMIC SOLUTION OU SCH ×2 (08:52→16:47)
[2017-05-20] MEDS: DIVALPROEX SODIUM 500 MG DR TABLET PO SCH ×2 (08:53→16:43)
[2017-05-20] MEDS: ARIPiprazole 10 MG TABLET PO SCH (08:53)
[2017-05-20] MEDS: ATORVASTATIN CALCIUM 40 MG TABLET PO SCH (08:53)
[2017-05-20] MEDS: CHOLECALCIFEROL (VIT D3) 2,000 UNITS TABLET PO SCH (08:53)
[2017-05-20] MEDS: LISINOPRIL 20 MG TABLET PO SCH (08:53)
[2017-05-20] MEDS: INSULIN DETEMIR 100 UNITS/ML SQ SCH ×2 (09:36→17:02)
[2017-05-20 10:09] VITALS: BP 114/74
[2017-05-20 18:01] VITALS: BP 126/74
[2017-05-20] MEDS: HALOPERIDOL 5 MG TABLET PO SCH (20:06)
[2017-05-21 05:53] LABS: GLUCOMETER DEV NAME(LOC) 3EI B; GLUCOSE,POINT OF CARE 228 MG/DL (70-110)
[2017-05-21] MEDS: GlipiZIDE 10 MG TABLET PO SCH ×2 (06:35→17:12)
[2017-05-21] MEDS: INSULIN ASPART 100 UNITS/ML SQ PRN ×4 (06:57→21:40)
[2017-05-21] MEDS: ARIPiprazole 10 MG TABLET PO SCH (08:50)
[2017-05-21] MEDS: DIVALPROEX SODIUM 500 MG DR TABLET PO SCH ×2 (08:50→17:12)
[2017-05-21] MEDS: TIMOLOL MALEATE 0.25% 5 ML OPHTHALMIC SOLUTION OU SCH ×2 (08:50→17:17)
[2017-05-21] MEDS: LISINOPRIL 20 MG TABLET PO SCH (08:51)
[2017-05-21] MEDS: ATORVASTATIN CALCIUM 40 MG TABLET PO SCH (08:51)
[2017-05-21] MEDS: CHOLECALCIFEROL (VIT D3) 2,000 UNITS TABLET PO SCH (08:52)
[2017-05-21 09:00] VITALS: BP 143/84
[2017-05-21] MEDS: INSULIN DETEMIR 100 UNITS/ML SQ SCH ×2 (09:16→17:19)
[2017-05-21 16:17] VITALS: BP 157/67
[2017-05-21] MEDS: HALOPERIDOL 5 MG TABLET PO SCH (21:16)
[2017-05-22 06:03] LABS: GLUCOMETER DEV NAME(LOC) 3EI B; GLUCOSE,POINT OF CARE 119 MG/DL (70-110)
[2017-05-22] MEDS: GlipiZIDE 10 MG TABLET PO SCH ×2 (07:02→18:16)
[2017-05-22 08:35] VITALS: BP 134/85
[2017-05-22] MEDS: ARIPiprazole 10 MG TABLET PO SCH (08:48)
[2017-05-22] MEDS: ATORVASTATIN CALCIUM 40 MG TABLET PO SCH (08:48)
[2017-05-22] MEDS: DIVALPROEX SODIUM 500 MG DR TABLET PO SCH ×2 (08:48→18:16)
[2017-05-22] MEDS: CHOLECALCIFEROL (VIT D3) 2,000 UNITS TABLET PO SCH (08:48)
[2017-05-22] MEDS: TIMOLOL MALEATE 0.25% 5 ML OPHTHALMIC SOLUTION OU SCH ×2 (08:49→18:16)
[2017-05-22] MEDS: LISINOPRIL 20 MG TABLET PO SCH (08:52)
[2017-05-22 09:33] LABS: GLUCOMETER DEV NAME(LOC) 3EI B; GLUCOSE,POINT OF CARE 313 MG/DL (70-110)
[2017-05-22] MEDS: INSULIN DETEMIR 100 UNITS/ML SQ SCH ×2 (09:36→17:54)
[2017-05-22] MEDS: INSULIN ASPART 100 UNITS/ML SQ PRN ×2 (11:56→17:55)
[2017-05-22] MEDS: CLOTRIMAZOLE 1% 10 ML SOLUTION TP SCH (18:16)
[2017-05-22 18:29] VITALS: BP 144/96
[2017-05-22] MEDS: HALOPERIDOL 5 MG TABLET PO SCH (20:33)
[2017-05-23 05:53] LABS: GLUCOMETER DEV NAME(LOC) 3EI B; GLUCOSE,POINT OF CARE 95 MG/DL (70-110)
[2017-05-23] MEDS: GlipiZIDE 10 MG TABLET PO SCH ×2 (06:39→17:23)
[2017-05-23 08:30] VITALS: BP 139/103
[2017-05-23] MEDS: ARIPiprazole 10 MG TABLET PO SCH (09:32)
[2017-05-23] MEDS: LISINOPRIL 20 MG TABLET PO SCH (09:32)
[2017-05-23] MEDS: DIVALPROEX SODIUM 500 MG DR TABLET PO SCH ×2 (09:32→17:22)
[2017-05-23] MEDS: ATORVASTATIN CALCIUM 40 MG TABLET PO SCH (09:32)
[2017-05-23] MEDS: CHOLECALCIFEROL (VIT D3) 2,000 UNITS TABLET PO SCH (09:32)
[2017-05-23] MEDS: TIMOLOL MALEATE 0.25% 5 ML OPHTHALMIC SOLUTION OU SCH ×2 (09:33→17:23)
[2017-05-23] MEDS: CLOTRIMAZOLE 1% 10 ML SOLUTION TP SCH ×2 (09:33→17:23)
[2017-05-23] MEDS: INSULIN DETEMIR 100 UNITS/ML SQ SCH ×3 (09:45→19:06)
[2017-05-23] MEDS ORDERED: INSULIN ASPART 100 UNITS/ML SQ ONE (11:30)
[2017-05-23] MEDS: INSULIN ASPART 100 UNITS/ML SQ PRN ×2 (11:32→19:05)
[2017-05-23 16:33] VITALS: BP 156/100
[2017-05-23] MEDS: HYDROCORTISONE 1% 30 GM OINTMENT TP SCH (17:23)
[2017-05-23] MEDS: HALOPERIDOL 5 MG TABLET PO SCH (20:50)
[2017-05-23 21:22] LABS: GLUCOMETER DEV NAME(LOC) 3EI B; GLUCOSE,POINT OF CARE 139 MG/DL (70-110)
[2017-05-24] MEDS: GlipiZIDE 10 MG TABLET PO SCH ×2 (06:42→17:20)
[2017-05-24 06:43] LABS: GLUCOMETER DEV NAME(LOC) 3EI B; GLUCOSE,POINT OF CARE 60 MG/DL (70-110)
[2017-05-24 08:30] VITALS: BP 132/97
[2017-05-24] MEDS: ARIPiprazole 10 MG TABLET PO SCH (09:09)
[2017-05-24] MEDS: ATORVASTATIN CALCIUM 40 MG TABLET PO SCH (09:09)
[2017-05-24] MEDS: CHOLECALCIFEROL (VIT D3) 2,000 UNITS TABLET PO SCH (09:09)
[2017-05-24] MEDS: DIVALPROEX SODIUM 500 MG DR TABLET PO SCH ×2 (09:10→15:59)
[2017-05-24] MEDS: LISINOPRIL 20 MG TABLET PO SCH (09:10)
[2017-05-24] MEDS: HYDROCORTISONE 1% 30 GM OINTMENT TP SCH ×2 (09:11→15:59)
[2017-05-24] MEDS: TIMOLOL MALEATE 0.25% 5 ML OPHTHALMIC SOLUTION OU SCH ×2 (09:11→15:58)
[2017-05-24] MEDS: CLOTRIMAZOLE 1% 10 ML SOLUTION TP SCH ×2 (09:15→15:59)
[2017-05-24] MEDS: INSULIN DETEMIR 100 UNITS/ML SQ SCH ×2 (09:40→16:55)
[2017-05-24] MEDS: INSULIN ASPART 100 UNITS/ML SQ PRN ×3 (11:50→21:06)
[2017-05-24 16:45] VITALS: BP 143/98
[2017-05-24] MEDS: HALOPERIDOL 5 MG TABLET PO SCH (21:02)
[2017-05-25 01:00] VITALS: BP 141/90
[2017-05-25 06:02] LABS: GLUCOMETER DEV NAME(LOC) 3EI B; GLUCOSE,POINT OF CARE 167 MG/DL (70-110)
[2017-05-25] MEDS: GlipiZIDE 10 MG TABLET PO SCH ×2 (06:51→17:12)
[2017-05-25] MEDS: INSULIN ASPART 100 UNITS/ML SQ PRN ×4 (07:12→21:08)
[2017-05-25 07:37] LABS: BASOPHILS % (AUTO) 0.1 % (0.0-2.0); EOSINOPHILS % (AUTO) 1.3 % (1.0-6.0); HEMATOCRIT 41.7 % (41-53); HEMOGLOBIN 14.2 g/dL (13.5-17.5); LYMPHOCYTES # (AUTO) 2.1 K/uL (1.0-4.8); LYMPHOCYTES % (AUTO) 37.6 % (22.0-44.0); MEAN CORPUSCULAR HEMOGLOBIN 31.3 pg (26.0-34.0); MEAN CORPUSCULAR VOLUME 92 fL (80-100); MONOCYTES # (AUTO) 0.4 K/uL (0.1-1.0); MONOCYTES % (AUTO) 6.7 % (2.0-9.0); NEUTROPHILS # (AUTO) 3.1 K/uL (1.8-7.7); NEUTROPHILS % (AUTO) 54.3 % (40.0-70.0); PLATELET COUNT (AUTO) 161 K/uL (150-450); RED BLOOD CELL COUNT(AUTO) 4.53 MIL/uL (4.50-5.90); RED CELL DISTRIBUTION WIDTH 12.8 % (11.5-14.5)
[2017-05-25 07:54] LABS: CREATININE 1.38 mg/dL (0.60-1.30); POTASSIUM 4.1 mmol/L (3.5-5.1)
[2017-05-25 08:10] VITALS: BP 151/98
[2017-05-25] MEDS: LISINOPRIL 20 MG TABLET PO SCH (08:44)
[2017-05-25] MEDS: DIVALPROEX SODIUM 500 MG DR TABLET PO SCH ×2 (08:44→17:12)
[2017-05-25] MEDS: ARIPiprazole 10 MG TABLET PO SCH (08:45)
[2017-05-25] MEDS: CHOLECALCIFEROL (VIT D3) 2,000 UNITS TABLET PO SCH (08:45)
[2017-05-25] MEDS: ATORVASTATIN CALCIUM 40 MG TABLET PO SCH (08:45)
[2017-05-25] MEDS: CLOTRIMAZOLE 1% 10 ML SOLUTION TP SCH ×2 (08:46→17:13)
[2017-05-25] MEDS: HYDROCORTISONE 1% 30 GM OINTMENT TP SCH ×2 (08:46→17:12)
[2017-05-25] MEDS: TIMOLOL MALEATE 0.25% 5 ML OPHTHALMIC SOLUTION OU SCH ×2 (08:47→17:12)
[2017-05-25] MEDS: INSULIN DETEMIR 100 UNITS/ML SQ SCH ×2 (09:27→17:10)
[2017-05-25 16:30] VITALS: BP 154/98
[2017-05-25] MEDS: HALOPERIDOL 5 MG TABLET PO SCH (21:01)
[2017-05-26] MEDS: GlipiZIDE 10 MG TABLET PO SCH (07:02)
[2017-05-26] MEDS: INSULIN ASPART 100 UNITS/ML SQ PRN ×2 (07:02→11:54)
[2017-05-26 08:39] VITALS: BP 139/85
[2017-05-26] MEDS: DIVALPROEX SODIUM 500 MG DR TABLET PO SCH (08:59)
[2017-05-26] MEDS: ARIPiprazole 10 MG TABLET PO SCH (08:59)
[2017-05-26] MEDS: TIMOLOL MALEATE 0.25% 5 ML OPHTHALMIC SOLUTION OU SCH (08:59)
[2017-05-26] MEDS: CHOLECALCIFEROL (VIT D3) 2,000 UNITS TABLET PO SCH (08:59)
[2017-05-26] MEDS: CLOTRIMAZOLE 1% 10 ML SOLUTION TP SCH (09:00)
[2017-05-26] MEDS: ATORVASTATIN CALCIUM 40 MG TABLET PO SCH (09:00)
[2017-05-26] MEDS: HYDROCORTISONE 1% 30 GM OINTMENT TP SCH (09:00)
[2017-05-26] MEDS: LISINOPRIL 20 MG TABLET PO SCH (09:01)
[2017-05-26] MEDS: INSULIN DETEMIR 100 UNITS/ML SQ SCH (09:10)
[2017-05-26] MEDS ORDERED: ATOR40TA28 PO (11:30)
[2017-05-26] MEDS ORDERED: CLOT15CR62 TP (11:33)
[2017-05-26] MEDS ORDERED: DIVA500T35 PO (11:33)
[2017-05-26] MEDS ORDERED: GLIP10 PO (11:34)
[2017-06-11 15:03] LABS: GLUCOMETER DEV NAME(LOC) 3EX 1; GLUCOSE,POINT OF CARE 250 MG/DL (70-110)
[2017-06-11 15:03] LABS: GLUCOMETER DEV NAME(LOC) 3EX 1; GLUCOSE,POINT OF CARE 257 MG/DL (70-110)
[2017-06-11 15:03] LABS: GLUCOMETER DEV NAME(LOC) 3EX 1; GLUCOSE,POINT OF CARE 387 MG/DL (70-110)
[2017-06-11 15:04] LABS: GLUCOMETER DEV NAME(LOC) 3EX 1; GLUCOSE,POINT OF CARE 388 MG/DL (70-110)
[2017-06-11 15:04] LABS: GLUCOMETER DEV NAME(LOC) 3EX 1; GLUCOSE,POINT OF CARE 348 MG/DL (70-110)
[2017-06-11 15:04] LABS: GLUCOMETER DEV NAME(LOC) 3EX 1; GLUCOSE,POINT OF CARE 316 MG/DL (70-110)
[2017-06-11 15:04] LABS: GLUCOMETER DEV NAME(LOC) 3EX 1; GLUCOSE,POINT OF CARE 358 MG/DL (70-110)
[2017-06-11 15:04] LABS: GLUCOMETER DEV NAME(LOC) 3EX 1; GLUCOSE,POINT OF CARE 223 MG/DL (70-110)
[2017-06-11 15:04] LABS: GLUCOMETER DEV NAME(LOC) 3EX 1; GLUCOSE,POINT OF CARE 424 MG/DL (70-110)
[2017-06-11 15:04] LABS: GLUCOMETER DEV NAME(LOC) 3EX 1; GLUCOSE,POINT OF CARE 312 MG/DL (70-110)
[2017-06-11 15:04] LABS: GLUCOMETER DEV NAME(LOC) 3EX 1; GLUCOSE,POINT OF CARE 347 MG/DL (70-110)
[2017-06-11 15:04] LABS: GLUCOMETER DEV NAME(LOC) 3EX 1; GLUCOSE,POINT OF CARE 464 MG/DL (70-110)
[2017-06-11 15:04] LABS: GLUCOMETER DEV NAME(LOC) 3EX 1; GLUCOSE,POINT OF CARE 283 MG/DL (70-110)
[2017-06-11 15:04] LABS: GLUCOMETER DEV NAME(LOC) 3EX 1; GLUCOSE,POINT OF CARE 396 MG/DL (70-110)
[2017-06-11 15:04] LABS: GLUCOMETER DEV NAME(LOC) 3EX 1; GLUCOSE,POINT OF CARE 355 MG/DL (70-110)
[2017-06-11 15:04] LABS: GLUCOMETER DEV NAME(LOC) 3EX 1; GLUCOSE,POINT OF CARE 341 MG/DL (70-110)
[2017-06-11 15:04] LABS: GLUCOMETER DEV NAME(LOC) 3EX 1; GLUCOSE,POINT OF CARE 202 MG/DL (70-110)
[2017-06-11 15:04] LABS: GLUCOMETER DEV NAME(LOC) 3EX 1; GLUCOSE,POINT OF CARE 308 MG/DL (70-110)
[2017-06-11 15:04] LABS: GLUCOMETER DEV NAME(LOC) 3EX 1; GLUCOSE,POINT OF CARE 386 MG/DL (70-110)
[2017-06-11 15:04] LABS: GLUCOMETER DEV NAME(LOC) 3EX 1; GLUCOSE,POINT OF CARE 181 MG/DL (70-110)
[2017-06-11 15:05] LABS: GLUCOMETER DEV NAME(LOC) 3EX 1; GLUCOSE,POINT OF CARE 187 MG/DL (70-110)
[2017-06-11 15:05] LABS: GLUCOMETER DEV NAME(LOC) 3EX 1; GLUCOSE,POINT OF CARE 332 MG/DL (70-110)
[2017-06-11 15:05] LABS: GLUCOMETER DEV NAME(LOC) 3EX 1; GLUCOSE,POINT OF CARE 341 MG/DL (70-110)
[2017-06-11 15:05] LABS: GLUCOMETER DEV NAME(LOC) 3EX 1; GLUCOSE,POINT OF CARE 357 MG/DL (70-110)
[2017-06-11 15:05] LABS: GLUCOMETER DEV NAME(LOC) 3EX 1; GLUCOSE,POINT OF CARE 80 MG/DL (70-110)
[2017-06-11 15:05] LABS: GLUCOMETER DEV NAME(LOC) 3EX 1; GLUCOSE,POINT OF CARE 254 MG/DL (70-110)
[2017-06-11 15:05] LABS: GLUCOMETER DEV NAME(LOC) 3EX 1; GLUCOSE,POINT OF CARE 178 MG/DL (70-110)
[2017-06-11 15:05] LABS: GLUCOMETER DEV NAME(LOC) 3EX 1; GLUCOSE,POINT OF CARE 401 MG/DL (70-110)
[2017-06-11 15:05] LABS: GLUCOMETER DEV NAME(LOC) 3EX 1; GLUCOSE,POINT OF CARE 269 MG/DL (70-110)
[2017-06-11 15:05] LABS: GLUCOMETER DEV NAME(LOC) 3EX 1; GLUCOSE,POINT OF CARE 219 MG/DL (70-110)
== END 2017-05-26 12:45 | disposition home or self-care (01) | DRG 885 ==
LOC: EMS 22:19 → 3EX 05-17 01:02
PROVIDERS: ADMIT Psychiatry & Neurology Psychiatry; ATTEND Psychiatry & Neurology Psychiatry
DX: F20.0 Paranoid schizophrenia (principal); N17.9 Acute kidney failure, unspecified; N18.3 Chronic kidney disease, stage 3 (moderate); E11.65 Type 2 diabetes mellitus with hyperglycemia; E11.22 Type 2 diabetes mellitus with diabetic chronic kidney disease; E87.0 Hyperosmolality and hypernatremia; R45.851 Suicidal ideations; E86.0 Dehydration; F15.10 Other stimulant abuse, uncomplicated; I12.9 Hypertensive chronic kidney disease with stage 1 through stage 4 chronic kidney disease, or unspecified chronic kidney disease; F32.9 Major depressive disorder, single episode, unspecified; I51.7 Cardiomegaly; N48.1 Balanitis; Z59.0 Homelessness; Z79.899 Other long term (current) drug therapy
CPT/HCPCS: 82306; 82570; 82962; 83036; 83735; 84100; 84156; 84300; 87086; 87106; 93005; 96361; 96372; 96374; 96376; 99285; G0480; J1200; J1630; J1815; J2060; J7030

== ENCOUNTER 2017-06-03 00:56 | Emergency (ER) | payer MEDICARE, MEDICAID ==
[~2017-06-03] VITALS: Ht 167.6 cm; Wt 68.0 kg
[~2017-06-03 00:56] MED LIST changes: +ATOR40TA28 PO; +CLOT15CR62 TP; +DIVA500T35 PO; -GLIM4 PO; +GLIP10 PO; -HC1C1.5 TP; +HYDR28.45 TP; -INSLAN SQ; -METF500T4 PO; -NIFE60TA71 PO; -OMEG100033 PO; -PROP10TA73 PO; -SIMV-259 PO
[2017-06-03 02:02] LABS: BASOPHILS % (AUTO) 1.4 % (0.0-2.0); HEMATOCRIT 43.4 % (41-53); HEMOGLOBIN 14.4 g/dL (13.5-17.5); LYMPHOCYTES # (AUTO) 2.7 K/uL (1.0-4.8); LYMPHOCYTES % (AUTO) 32.4 % (22.0-44.0); MEAN CORPUSCULAR HEMOGLOBIN 30.8 pg (26.0-34.0); MEAN CORPUSCULAR HGB CONC 33.3 G/dL (31.0-37.0); MEAN CORPUSCULAR VOLUME 92 fL (80-100); MONOCYTES # (AUTO) 0.6 K/uL (0.1-1.0); MONOCYTES % (AUTO) 7.5 % (2.0-9.0); NEUTROPHILS # (AUTO) 4.8 K/uL (1.8-7.7); NEUTROPHILS % (AUTO) 57.7 % (40.0-70.0); RED CELL DISTRIBUTION WIDTH 13.4 % (11.5-14.5)
[2017-06-03 02:10] LABS: ANION GAP 7 mmol/L (8-16); CALCIUM, TOTAL 9.1 mg/dL (8.8-10.5); CARBON DIOXIDE 31 mmol/L (22-29); CHLORIDE 101 mmol/L (98-107); CREATININE 1.74 mg/dL (0.60-1.30); GLOMERULAR FILTR. RATE CALC 41 mL/min (>60); GLUCOSE,RANDOM 332 mg/dL (70-110); POTASSIUM 4.3 mmol/L (3.5-5.1); SODIUM SERUM 139 mmol/L (136-145); UREA NITROGEN, BLOOD 24 mg/dL (7-18)
[2017-06-03 02:16] LABS: ALANINE AMINOTRANSFERASE 46 U/L (12-78); ALBUMIN 3.2 g/dL (3.4-5.0); ALKALINE PHOSPHATASE 124 U/L (46-116); ASPARTATE AMINOTRANSFERASE 37 U/L (15-37); BILIRUBIN,TOTAL 0.5 mg/dL (0.1-1.0); TOTAL PROTEIN, SERUM 7.7 g/dL (6.4-8.2)
[2017-06-03 02:24] LABS: PLATELET COUNT (AUTO) 151 K/uL (150-450); PLATELET MORPHOLOGY COMMENT GIANT PLTS PRESENT
[2017-06-03 02:29] LABS: VALPROIC ACID < 3 mcg/mL (50-100)
[2017-06-03 02:31] LABS: AMPHET/METH SCREEN,URINE NEGATIVE (NEGATIVE); BARBITURATE SCREEN, URINE NEGATIVE (NEGATIVE); BENZODIAZEPINES SCREEN,URINE NEGATIVE (NEGATIVE); CANNABINOID SCREEN,URINE NEGATIVE (NEGATIVE); COCAINE SCREEN,URINE NEGATIVE (NEGATIVE); METHADONE SCREEN, URINE NEGATIVE (NEGATIVE); OPIATE SCREEN,URINE NEGATIVE (NEGATIVE); PHENCYCLIDINE SCREEN,URINE NEGATIVE (NEGATIVE)
[2017-06-03] MEDS ORDERED: NAPROXEN 250 MG TABLET PO ONE (05:15)
[2017-06-03] MEDS ORDERED: CEPHALEXIN MONOHYDRATE 500 MG CAPSULE PO ONE (05:15)
[2017-06-03 05:52] VITALS: BP 130/85
== END 2017-06-03 05:53 | disposition home or self-care (01) ==
LOC: EMS 00:58
DX: S00.93XA Contusion of unspecified part of head, initial encounter (principal); S50.02XA Contusion of left elbow, initial encounter; L03.116 Cellulitis of left lower limb; Y04.0XXA Assault by unarmed brawl or fight, initial encounter; Y93.89 Activity, other specified; Y92.89 Other specified places as the place of occurrence of the external cause; Y99.8 Other external cause status
CPT/HCPCS: 36415; 80053; 80164; 80307; 85025; 99284; G0480

== ENCOUNTER 2017-06-05 21:24 | Emergency (ER) | payer MEDICARE, MEDICAID ==
[~2017-06-05] VITALS: Ht 162.6 cm; Wt 70.9 kg
[2017-06-05 21:48] LABS: GLUCOSE,POINT OF CARE 510 MG/DL (70-110)
[2017-06-05 23:06] LABS: BASOPHILS % (AUTO) 0.5 % (0.0-2.0); EOSINOPHILS % (AUTO) 2.1 % (1.0-6.0); HEMOGLOBIN 14.5 g/dL (13.5-17.5); LYMPHOCYTES # (AUTO) 2.2 K/uL (1.0-4.8); LYMPHOCYTES % (AUTO) 30.5 % (22.0-44.0); MEAN CORPUSCULAR HGB CONC 33.7 G/dL (31.0-37.0); MEAN CORPUSCULAR VOLUME 92 fL (80-100); MONOCYTES # (AUTO) 0.5 K/uL (0.1-1.0); MONOCYTES % (AUTO) 7.1 % (2.0-9.0); NEUTROPHILS # (AUTO) 4.3 K/uL (1.8-7.7); NEUTROPHILS % (AUTO) 59.8 % (40.0-70.0); PLATELET COUNT (AUTO) 245 K/uL (150-450); RED BLOOD CELL COUNT(AUTO) 4.67 MIL/uL (4.50-5.90)
[2017-06-05 23:24] LABS: ALANINE AMINOTRANSFERASE 55 U/L (12-78); ALBUMIN 2.9 g/dL (3.4-5.0); ALKALINE PHOSPHATASE 124 U/L (46-116); ANION GAP 6 mmol/L (8-16); ASPARTATE AMINOTRANSFERASE 85 U/L (15-37); BILIRUBIN,TOTAL 0.4 mg/dL (0.1-1.0); CALCIUM, TOTAL 8.8 mg/dL (8.8-10.5); CARBON DIOXIDE 29 mmol/L (22-29); CHLORIDE 100 mmol/L (98-107); CREATININE 1.89 mg/dL (0.60-1.30); GLOMERULAR FILTR. RATE CALC 37 mL/min (>60); POTASSIUM 3.7 mmol/L (3.5-5.1); SODIUM SERUM 135 mmol/L (136-145); TOTAL PROTEIN, SERUM 7.2 g/dL (6.4-8.2); UREA NITROGEN, BLOOD 19 mg/dL (7-18)
[2017-06-05 23:28] LABS: GLUCOSE,RANDOM 493 mg/dL (70-110)
[2017-06-06 01:28] LABS: GLUCOSE,POINT OF CARE 393 MG/DL (70-110)
[2017-06-06] MEDS ORDERED: INSULIN REGULAR, HUMAN 100 UNITS/ML SQ ONE (01:45)
[2017-06-06 01:53] LABS: AMPHET/METH SCREEN,URINE NEGATIVE (NEGATIVE); BARBITURATE SCREEN, URINE NEGATIVE (NEGATIVE); BENZODIAZEPINES SCREEN,URINE NEGATIVE (NEGATIVE); CANNABINOID SCREEN,URINE NEGATIVE (NEGATIVE); COCAINE SCREEN,URINE NEGATIVE (NEGATIVE); METHADONE SCREEN, URINE NEGATIVE (NEGATIVE); OPIATE SCREEN,URINE NEGATIVE (NEGATIVE)
[2017-06-06 02:06] LABS: PHENCYCLIDINE SCREEN,URINE NEGATIVE (NEGATIVE)
[2017-06-06 02:17] LABS: GLUCOSE,POINT OF CARE 380 MG/DL (70-110)
[2017-06-06 02:46] VITALS: BP 144/85
== END 2017-06-06 02:51 | disposition home or self-care (01) ==
LOC: EMS 21:27
DX: F41.9 Anxiety disorder, unspecified (principal); E11.65 Type 2 diabetes mellitus with hyperglycemia; L97.129 Non-pressure chronic ulcer of left thigh with unspecified severity; R46.89 Other symptoms and signs involving appearance and behavior; R21 Rash and other nonspecific skin eruption; I10 Essential (primary) hypertension
CPT/HCPCS: 36415; 80053; 80307; 82962; 85025; 96372; 99284; G0480; J1815